=== PATIENT | male | born 1935 | race Caucasian/White ===

== ENCOUNTER 2020-04-21 06:48 | Outpatient (REF) | payer MEDICARE, SELFPAY ==
[2020-04-21 11:12] LABS: MANUAL DIFF FLAG NO
[2020-04-21 11:30] LABS: Basophils Percent Auto 0.4 % (0-2); Eosinophils Absolute Auto 0.2 X10*3/uL (0.0-0.4); Eosinophils Percent Auto 3.1 % (0-4); Hematocrit 42.6 % (42-52); Hemoglobin 13.8 g/dl (14.0-18.0); Imm Gran Abs Auto 0.04 X10*3/uL (0.00-0.03); Imm Gran Pct Auto 0.6 % (0.0-0.4); Lymphocytes Absolute Auto 1.6 X10*3/uL (1.2-4.9); Lymphocytes Percent Auto 23.5 % (20-40); Mean Corpuscular HGB Conc 32.4 g/dl (31.0-36.0); Mean Corpuscular Hemoglobin 29.4 pg (27.0-33.0); Mean Corpuscular Volume 90.8 fL (80-98); Mean Platelet Volume 9.6 fL (9.4-12.4); Monocytes Absolute Auto 0.5 X10*3/uL (0.1-1.2); Monocytes Percent Auto 7.2 % (2-11); Neutrophils Absolute Auto 4.4 X10*3/uL (2.0-8.3); Neutrophils Percent Auto 65.2 % (45-73); Platelet Count 236 X10*3/uL (160-400); Red Blood Count 4.69 X10*6/uL (4.60-5.80); Red Cell Distribution Width 12.7 % (11.0-16.0); White Blood Count 6.7 X10*3/uL (4.8-10.8)
[2020-04-21 11:57] LABS: Alanine Aminotransferase 12 U/L (0-40); Albumin Level 4.3 g/dL (3.5-5.0); Alkaline Phosphatase 72 U/L (39-117); Anion Gap 17 (12-20); Aspartate Amino Transferase 14 U/L (5-37); Bilirubin Total 0.8 mg/dL (0.0-1.0); Blood Urea Nitrogen 19 mg/dL (9-16); Calcium 8.6 mg/dL (8.4-10.2); Carbon Dioxide 23 mmol/L (22-29); Chloride 103 mmol/L (96-108); Cholesterol 160 mg/dL; Estimated Glomerular Filt Rate > 60; Glucose Random 101 mg/dL (60-115); HDL Cholesterol 40 mg/dL; LDL Cholesterol Calculated 83 mg/dl; Sodium 139 mmol/L (135-145); Total Protein 6.9 g/dL (6.5-8.0); Triglycerides 186 mg/dL
[2020-04-21 12:06] LABS: Free T4 (Free Thyroxine) 1.04 ng/dL (0.71-1.85); Thyroid Stimulating Hormone 6.06 uIU/mL (0.32-4.0)
[2020-04-21 12:07] LABS: Estimated Average Glucose 151 mg/dL; Hemoglobin A1c % 6.9 %
[2020-04-21 12:22] LABS: Vitamin B12 225 pg/mL (200-900)
[2020-04-21 12:38] LABS: Creatinine Urine 109.22 mg/dL; Microalbum/Creatinine Ratio Ur 48.5 ug/mg cr
== END 2020-04-21 06:49 | disposition home or self-care (01) ==
LOC: HO.HMGCLDS 06:48
PROVIDERS: PCP Internal Medicine; Visit Provider Internal Medicine
DX: K21.9 Gastro-esophageal reflux disease without esophagitis (principal); I10 Essential (primary) hypertension; E11.65 Type 2 diabetes mellitus with hyperglycemia; E78.00 Pure hypercholesterolemia, unspecified
CPT/HCPCS: 36415; 80053; 80061; 82043; 82607; 82746; 83036; 84439; 84443; 85025

== ENCOUNTER 2020-07-26 10:25 | Outpatient (REF) | payer MEDICARE, SELFPAY ==
[2020-07-26 14:10] LABS: MANUAL DIFF FLAG NO
[2020-07-26 14:18] LABS: Basophils Percent Auto 0.5 % (0-2); Eosinophils Absolute Auto 0.2 X10*3/uL (0.0-0.4); Eosinophils Percent Auto 2.6 % (0-4); Hematocrit 42.1 % (42-52); Hemoglobin 13.6 g/dl (14.0-18.0); Imm Gran Abs Auto 0.03 X10*3/uL (0.00-0.03); Imm Gran Pct Auto 0.5 % (0.0-0.4); Immature Retic Fraction 5.7 % (2.3-13.4); Lymphocytes Absolute Auto 1.5 X10*3/uL (1.2-4.9); Lymphocytes Percent Auto 25.4 % (20-40); Mean Corpuscular HGB Conc 32.3 g/dl (31.0-36.0); Mean Corpuscular Volume 92.9 fL (80-98); Mean Platelet Volume 9.6 fL (9.4-12.4); Monocytes Absolute Auto 0.4 X10*3/uL (0.1-1.2); Monocytes Percent Auto 7.2 % (2-11); Neutrophils Absolute Auto 3.7 X10*3/uL (2.0-8.3); Neutrophils Percent Auto 63.8 % (45-73); Platelet Count 239 X10*3/uL (160-400); Red Blood Count 4.53 X10*6/uL (4.60-5.80); Red Cell Distribution Width 13.1 % (11.0-16.0); Retic HGB Equivalent 35.1 pg (30.0-35.0); Reticulocyte Percent 1.4 % (0.5-1.8); Reticulocytes Absolute 0.065 X10*6/uL (0.026-0.095); White Blood Count 5.8 X10*3/uL (4.8-10.8)
[2020-07-26 14:43] LABS: Creatinine Urine 164.68 mg/dL
[2020-07-26 14:50] LABS: Iron 62 mcg/dL (45-160); Percent Iron Saturation 20 % (15-50); Total Iron Binding Capacity 307 mcg/dL (228-428); Unsaturated Iron Binding 245 ug/dL
[2020-07-26 15:15] LABS: Ferritin 52 ng/mL (20-250); Free T4 (Free Thyroxine) 0.93 ng/dL (0.71-1.85); Thyroid Stimulating Hormone 4.61 uIU/mL (0.32-4.0)
[2020-07-26 15:19] LABS: Folate 15.5 ng/mL (> or = 4.0); Vitamin B12 370 pg/mL (200-900)
== END 2020-07-26 10:26 | disposition home or self-care (01) ==
LOC: HO.HMGCLDS 10:25
PROVIDERS: PCP Internal Medicine; Visit Provider Internal Medicine
DX: D64.9 Anemia, unspecified (principal); E53.8 Deficiency of other specified B group vitamins; E11.65 Type 2 diabetes mellitus with hyperglycemia; R94.6 Abnormal results of thyroid function studies
CPT/HCPCS: 36415; 82607; 82728; 82746; 83540; 84439; 84443; 85025; 85045

== ENCOUNTER 2020-11-18 06:34 | Outpatient (REF) | payer MEDICARE, SELFPAY ==
[2020-11-18 11:19] LABS: MANUAL DIFF FLAG NO
[2020-11-18 11:24] LABS: Basophils Percent Auto 0.7 % (0-2); Eosinophils Absolute Auto 0.3 X10*3/uL (0.0-0.4); Eosinophils Percent Auto 5.1 % (0-4); Hematocrit 38.7 % (42-52); Imm Gran Abs Auto 0.03 X10*3/uL (0.00-0.03); Imm Gran Pct Auto 0.5 % (0.0-0.4); Lymphocytes Absolute Auto 1.2 X10*3/uL (1.2-4.9); Lymphocytes Percent Auto 20.7 % (20-40); Mean Corpuscular HGB Conc 33.6 g/dl (31.0-36.0); Mean Corpuscular Hemoglobin 30.5 pg (27.0-33.0); Mean Corpuscular Volume 90.8 fL (80-98); Mean Platelet Volume 9.6 fL (9.4-12.4); Monocytes Absolute Auto 0.5 X10*3/uL (0.1-1.2); Monocytes Percent Auto 8.4 % (2-11); Neutrophils Absolute Auto 3.8 X10*3/uL (2.0-8.3); Neutrophils Percent Auto 64.6 % (45-73); Platelet Count 243 X10*3/uL (160-400); Red Blood Count 4.26 X10*6/uL (4.60-5.80); Red Cell Distribution Width 12.8 % (11.0-16.0); White Blood Count 5.8 X10*3/uL (4.8-10.8)
[2020-11-18 11:24] LABS: Glucose Urine UA NEG (NEG); Leukocyte Esterase Urine NEG (NEG); Nitrite Urine NEG (NEG); Specific Gravity - Urine >= 1.030 (1.005-1.025); Urine Blood NEG (NEG); Urine Ketones NEG (NEG); Urine Protein 1+ MG/DL (NEG-TRACE)
[2020-11-18 11:27] LABS: Appearance Urine CLOUDY; Color Urine YELLOW
[2020-11-18 12:04] LABS: Free T4 (Free Thyroxine) 1.14 ng/dL (0.71-1.85); Thyroid Stimulating Hormone 4.31 uIU/mL (0.32-4.0)
[2020-11-18 12:06] LABS: Alanine Aminotransferase 13 U/L (0-40); Albumin Level 4.1 g/dL (3.5-5.0); Alkaline Phosphatase 75 U/L (39-117); Anion Gap 13 (12-20); Aspartate Amino Transferase 14 U/L (5-37); Bilirubin Total 0.7 mg/dL (0.0-1.0); Blood Urea Nitrogen 18 mg/dL (9-16); Calcium 9.1 mg/dL (8.4-10.2); Carbon Dioxide 25 mmol/L (22-29); Chloride 105 mmol/L (96-108); Cholesterol 156 mg/dL; Estimated Glomerular Filt Rate > 60; Glucose Random 123 mg/dL (60-115); HDL Cholesterol 40 mg/dL; LDL Cholesterol Calculated 93 mg/dl; Potassium 4.3 mmol/L (3.3-5.1); Sodium 139 mmol/L (135-145); Total Protein 6.6 g/dL (6.5-8.0); Triglycerides 118 mg/dL
[2020-11-18 12:14] LABS: Erythrocyte Sedimentation Rate 11 MM/HR (0-15)
[2020-11-18 12:36] LABS: Amorphous Sediment Urine 4+ /LPF; RBC Urine 0-2 /HPF (0); WBC Urine 0 /HPF (0-4)
[2020-11-18 13:26] LABS: Folate 15.4 ng/mL (> or = 4.0); Vitamin B12 868 pg/mL (200-900)
[2020-11-18 13:27] LABS: Ferritin 67 ng/mL (20-250)
[2020-11-19 08:22] LABS: Syphilis Screen Nonreactive (Nonreactive)
[2020-11-22 13:37] LABS: Prot Elec - Alpha1 0.3 g/dL (0.2-0.3); Prot Elec - Alpha2 0.8 g/dL (0.5-0.9); Prot Elec - Beta 1 0.4 g/dL (0.4-0.6); Prot Elec - Beta 2 0.3 g/dL (0.2-0.5); Prot Elec - Gamma 0.7 g/dL (0.8-1.7); Prot Elec - Total Protein 6.5 g/dL (6.1-8.1)
== END 2020-11-18 06:35 | disposition home or self-care (01) ==
LOC: HO.HMGCLDS 06:34
PROVIDERS: PCP Internal Medicine; Visit Provider Internal Medicine
DX: G31.84 Mild cognitive impairment of uncertain or unknown etiology (principal); E78.00 Pure hypercholesterolemia, unspecified; R79.89 Other specified abnormal findings of blood chemistry
CPT/HCPCS: 36415; 80053; 80061; 81001; 82607; 82728; 82746; 84165; 84439; 84443; 85025; 85652; 86780

== ENCOUNTER 2020-12-03 07:34 | Outpatient (REF) | payer MEDICARE, SELFPAY ==
--- NOTE | ~2020-12-03 | CT_ITS ---
EXAMINATION: CT HEAD WITHOUT CONTRAST CLINICAL INFORMATION: Cognitive impairment COMPARISON: None TECHNIQUE: Contiguous axial imaging was performed from the skull base to vertex without intravenous administration of contrast. This CT examination was performed using dose optimization techniques as appropriate, variously including the following: *Automated exposure control *Adjustment of mA and/or kV according to patient size (this includes techniques or standardized protocols for targeted exams where dose is matched to indication/reason for exam; i.e. extremities or head) *Use of iterative reconstruction technique DLP: 805 mGy-cm FINDINGS: There is no evidence of acute intracranial hemorrhage or territorial infarction. No abnormal mass effect or midline shift is seen. Mcgarry to white matter differentiation is well preserved. No extra-axial fluid collections are identified. The ventricles are normal in size. Minor chronic white matter changes. The osseous structures and soft tissues are normal. The mastoid air cells and visualized portions of the paranasal sinuses are well aerated. CT/CT head/brain wo con IMPRESSION: No acute intracranial pathology.
== END 2020-12-03 07:35 | disposition home or self-care (01) ==
LOC: HO.CT 07:34
PROVIDERS: Visit Provider Internal Medicine
DX: G31.84 Mild cognitive impairment of uncertain or unknown etiology (principal)
CPT/HCPCS: 70450

== ENCOUNTER 2021-02-17 10:19 | Outpatient (REF) | payer MEDICARE, SELFPAY ==
[2021-02-17 11:45] LABS: Anion Gap 12 (12-20); Blood Urea Nitrogen 16 mg/dL (9-16); Calcium 9.1 mg/dL (8.4-10.2); Carbon Dioxide 26 mmol/L (22-29); Chloride 104 mmol/L (96-108); Estimated Glomerular Filt Rate > 60; Glucose Random 177 mg/dL (60-115); Potassium 4.6 mmol/L (3.3-5.1); Sodium 137 mmol/L (135-145)
[2021-02-17 12:10] LABS: Free T4 (Free Thyroxine) 1.12 ng/dL (0.71-1.85); Thyroid Stimulating Hormone 3.46 uIU/mL (0.32-4.0)
[2021-02-17 12:43] LABS: Folate 15.5 ng/mL (> or = 4.0); Vitamin B12 1066 pg/mL (200-900)
[2021-02-17 13:31] LABS: T4 Thyroxine 8.4 ug/dL (4.5-12.0)
== END 2021-02-17 10:20 | disposition home or self-care (01) ==
LOC: HO.HMGCLDS 10:19
PROVIDERS: PCP Internal Medicine; Visit Provider Psychiatry & Neurology Neurology
DX: G31.84 Mild cognitive impairment of uncertain or unknown etiology (principal)
CPT/HCPCS: 36415; 80048; 82607; 82746; 84436; 84439; 84443

== ENCOUNTER 2021-05-18 11:18 | Outpatient (REF) | payer MEDICARE, SELFPAY ==
[2021-05-18 14:07] LABS: MANUAL DIFF FLAG NO
[2021-05-18 14:14] LABS: Basophils Percent Auto 0.4 % (0-2); Eosinophils Absolute Auto 0.1 X10*3/uL (0.0-0.4); Eosinophils Percent Auto 1.7 % (0-4); Hematocrit 41.4 % (42.0-52.0); Hemoglobin 13.5 g/dl (14.0-18.0); Imm Gran Abs Auto 0.05 X10*3/uL (0.00-0.03); Imm Gran Pct Auto 0.7 % (0.0-0.4); Immature Retic Fraction 9.2 % (2.3-13.4); Lymphocytes Absolute Auto 1.7 X10*3/uL (1.2-4.9); Lymphocytes Percent Auto 24.1 % (20-40); Mean Corpuscular HGB Conc 32.6 g/dl (31.0-36.0); Mean Corpuscular Hemoglobin 30.3 pg (27.0-33.0); Mean Corpuscular Volume 92.8 fL (80.0-98.0); Mean Platelet Volume 9.7 fL (9.4-12.4); Monocytes Absolute Auto 0.4 X10*3/uL (0.1-1.2); Neutrophils Absolute Auto 4.9 x10*3/uL (2.0-8.3); Neutrophils Percent Auto 68.1 % (45-73); Platelet Count 258 X10*3/uL (160-400); Red Blood Count 4.46 X10*6/uL (4.60-5.80); Red Cell Distribution Width 13.1 % (11.0-16.0); Retic HGB Equivalent 32.9 pg (30.0-35.0); Reticulocyte Percent 1.5 % (0.5-1.8); Reticulocytes Absolute 0.068 X10*6/uL (0.026-0.095); White Blood Count 7.2 X10*3/uL (4.8-10.8)
[2021-05-18 14:30] LABS: Estimated Average Glucose 157 mg/dL; Hemoglobin A1c % 7.1 %
[2021-05-18 14:36] LABS: Alanine Aminotransferase 9 U/L (0-40); Albumin Level 4.4 g/dL (3.5-5.0); Alkaline Phosphatase 85 U/L (39-117); Anion Gap 13 (12-20); Aspartate Amino Transferase 14 U/L (5-37); Bilirubin Total 0.9 mg/dL (0.0-1.0); Blood Urea Nitrogen 17 mg/dL (9-16); Calcium 9.5 mg/dL (8.4-10.2); Carbon Dioxide 27 mmol/L (22-29); Chloride 104 mmol/L (96-108); Estimated Glomerular Filt Rate 58; Glucose Random 160 mg/dL (60-115); Iron 96 mcg/dL (45-160); Percent Iron Saturation 34 % (15-50); Potassium 4.2 mmol/L (3.3-5.1); Sodium 140 mmol/L (135-145); Total Iron Binding Capacity 282 mcg/dL (228-428); Unsaturated Iron Binding 186 ug/dL
[2021-05-18 14:57] LABS: Folate 15.7 ng/mL (> or = 4.0); Vitamin B12 1053 pg/mL (200-900)
[2021-05-18 15:02] LABS: Ferritin 81 ng/mL (20-250); Free T4 (Free Thyroxine) 1.02 ng/dL (0.71-1.85); Thyroid Stimulating Hormone 3.28 uIU/mL (0.32-4.0)
== END 2021-05-18 11:19 | disposition home or self-care (01) ==
LOC: HO.HMGCLDS 11:18
PROVIDERS: PCP Internal Medicine; Visit Provider Internal Medicine
DX: D64.9 Anemia, unspecified (principal); E11.65 Type 2 diabetes mellitus with hyperglycemia; R94.6 Abnormal results of thyroid function studies
CPT/HCPCS: 36415; 80053; 82607; 82728; 82746; 83036; 83540; 84439; 84443; 85025; 85045

== ENCOUNTER 2022-02-08 06:12 | Outpatient (REF) | payer MEDICARE, SELFPAY ==
[2022-02-08 06:20] LABS: MANUAL DIFF FLAG NO
[2022-02-08 07:36] LABS: Basophils Absolute Auto 0.1 X10*3/uL (0.0-0.2); Basophils Percent Auto 0.9 % (0-2); Eosinophils Absolute Auto 0.2 X10*3/uL (0.0-0.4); Eosinophils Percent Auto 2.8 % (0-4); Hematocrit 41.5 % (42.0-52.0); Hemoglobin 13.5 g/dl (14.0-18.0); Imm Gran Abs Auto 0.05 X10*3/uL (0.00-0.03); Imm Gran Pct Auto 0.7 % (0.0-0.4); Lymphocytes Absolute Auto 2.3 X10*3/uL (1.2-4.9); Lymphocytes Percent Auto 32.8 % (20-40); Mean Corpuscular HGB Conc 32.5 g/dl (31.0-36.0); Mean Corpuscular Hemoglobin 29.4 pg (27.0-33.0); Mean Corpuscular Volume 90.4 fL (80.0-98.0); Mean Platelet Volume 9.3 fL (9.4-12.4); Monocytes Absolute Auto 0.4 X10*3/uL (0.1-1.2); Monocytes Percent Auto 6.4 % (2-11); Neutrophils Absolute Auto 3.9 x10*3/uL (2.0-8.3); Neutrophils Percent Auto 56.4 % (45-73); Platelet Count 275 X10*3/uL (160-400); Red Blood Count 4.59 X10*6/uL (4.60-5.80); White Blood Count 6.9 X10*3/uL (4.8-10.8)
[2022-02-08 07:49] LABS: Estimated Average Glucose 123 mg/dL; Hemoglobin A1c % 5.9 %
[2022-02-08 08:31] LABS: Alanine Aminotransferase 9 U/L (0-40); Albumin Level 4.2 g/dL (3.5-5.0); Alkaline Phosphatase 73 U/L (39-117); Anion Gap 18 (12-20); Aspartate Amino Transferase 12 U/L (5-37); Bilirubin Total 0.7 mg/dL (0.0-1.0); Blood Urea Nitrogen 19 mg/dL (9-16); Carbon Dioxide 24 mmol/L (22-29); Chloride 102 mmol/L (96-108); Cholesterol 177 mg/dL; Estimated Glomerular Filt Rate 53; Glucose Random 107 mg/dL (60-115); HDL Cholesterol 48 mg/dL; LDL Cholesterol Calculated 106 mg/dl; Potassium 3.5 mmol/L (3.3-5.1); Sodium 140 mmol/L (135-145); Total Protein 6.7 g/dL (6.5-8.0); Triglycerides 117 mg/dL
[2022-02-08 08:33] LABS: Free T4 (Free Thyroxine) 1.22 ng/dL (0.71-1.85); Thyroid Stimulating Hormone 3.58 uIU/mL (0.32-4.0)
[2022-02-08 08:47] LABS: Folate 11.7 ng/mL (> or = 4.0); Vitamin B12 1486 pg/mL (200-900)
[2022-02-08 09:25] LABS: Creatinine Urine 156.72 mg/dL; Microalbum/Creatinine Ratio Ur 31.2 ug/mg cr
== END 2022-02-08 06:13 | disposition home or self-care (01) ==
LOC: HO.LAB 06:12
PROVIDERS: PCP Internal Medicine; Visit Provider Internal Medicine
DX: E78.00 Pure hypercholesterolemia, unspecified (principal); E11.65 Type 2 diabetes mellitus with hyperglycemia; I10 Essential (primary) hypertension; K21.9 Gastro-esophageal reflux disease without esophagitis
CPT/HCPCS: 36415; 80053; 80061; 82043; 82607; 82746; 83036; 84439; 84443; 85025

== ENCOUNTER 2022-05-26 06:03 | Outpatient (REF) | payer MEDICARE, SELFPAY ==
[2022-05-26 06:08] LABS: MANUAL DIFF FLAG NO
[2022-05-26 07:56] LABS: Basophils Absolute Auto 0.1 X10*3/uL (0.0-0.2); Basophils Percent Auto 1.2 % (0-2); Eosinophils Absolute Auto 0.2 X10*3/uL (0.0-0.4); Eosinophils Percent Auto 2.5 % (0-4); Hematocrit 40.3 % (42.0-52.0); Hemoglobin 13.2 g/dl (14.0-18.0); Imm Gran Abs Auto 0.04 X10*3/uL (0.00-0.03); Imm Gran Pct Auto 0.6 % (0.0-0.4); Immature Retic Fraction 6.8 % (2.3-13.4); Lymphocytes Absolute Auto 1.6 X10*3/uL (1.2-4.9); Lymphocytes Percent Auto 21.7 % (20-40); Mean Corpuscular HGB Conc 32.8 g/dl (31.0-36.0); Mean Corpuscular Hemoglobin 30.2 pg (27.0-33.0); Mean Corpuscular Volume 92.2 fL (80.0-98.0); Monocytes Absolute Auto 0.4 X10*3/uL (0.1-1.2); Monocytes Percent Auto 5.9 % (2-11); Neutrophils Absolute Auto 4.9 x10*3/uL (2.0-8.3); Neutrophils Percent Auto 68.1 % (45-73); Platelet Count 261 X10*3/uL (160-400); Red Blood Count 4.37 X10*6/uL (4.60-5.80); Red Cell Distribution Width 13.5 % (11.0-16.0); Retic HGB Equivalent 35.3 pg (30.0-35.0); Reticulocyte Percent 1.2 % (0.5-1.8); Reticulocytes Absolute 0.054 X10*6/uL (0.026-0.095); White Blood Count 7.2 X10*3/uL (4.8-10.8)
[2022-05-26 08:01] LABS: Estimated Average Glucose 134 mg/dL; Hemoglobin A1c % 6.3 %
[2022-05-26 08:15] LABS: Alanine Aminotransferase 18 U/L (0-40); Albumin Level 4.2 g/dL (3.5-5.0); Alkaline Phosphatase 78 U/L (39-117); Anion Gap 16 (12-20); Aspartate Amino Transferase 14 U/L (5-37); Bilirubin Total 0.8 mg/dL (0.0-1.0); Blood Urea Nitrogen 26 mg/dL (9-16); Calcium 9.1 mg/dL (8.4-10.2); Carbon Dioxide 23 mmol/L (22-29); Chloride 106 mmol/L (96-108); Cholesterol 203 mg/dL; Estimated Glomerular Filt Rate 58; Glucose Random 170 mg/dL (60-115); HDL Cholesterol 49 mg/dL; Iron 79 mcg/dL (45-160); LDL Cholesterol Calculated 119 mg/dl; Percent Iron Saturation 30 % (15-50); Potassium 4.6 mmol/L (3.3-5.1); Sodium 140 mmol/L (135-145); Total Iron Binding Capacity 260 mcg/dL (228-428); Total Protein 6.7 g/dL (6.5-8.0); Triglycerides 177 mg/dL; Unsaturated Iron Binding 181 ug/dL
[2022-05-26 08:29] LABS: Ferritin 60 ng/mL (20-250)
== END 2022-05-26 06:04 | disposition home or self-care (01) ==
LOC: HO.LAB 06:03
PROVIDERS: PCP Internal Medicine; Visit Provider Internal Medicine
DX: E11.65 Type 2 diabetes mellitus with hyperglycemia (principal); E78.00 Pure hypercholesterolemia, unspecified
CPT/HCPCS: 36415; 80053; 80061; 82728; 83036; 83540; 85025; 85045

== ENCOUNTER 2022-09-01 07:03 | Outpatient (REF) | payer MEDICARE, SELFPAY ==
[2022-09-01 08:26] LABS: Estimated Average Glucose 143 mg/dL; Hemoglobin A1c % 6.6 %; Total Hemoglobin (HGBA1C) 3588.4407 umol/L
[2022-09-01 08:49] LABS: Alanine Aminotransferase 18 U/L (0-40); Albumin Level 3.9 g/dL (3.5-5.0); Alkaline Phosphatase 79 U/L (39-117); Anion Gap 15 (12-20); Aspartate Amino Transferase 14 U/L (5-37); Bilirubin Total 0.6 mg/dL (0.0-1.0); Blood Urea Nitrogen 27 mg/dL (9-16); Calcium 9.1 mg/dL (8.4-10.2); Carbon Dioxide 24 mmol/L (22-29); Chloride 108 mmol/L (96-108); Cholesterol 200 mg/dL; Estimated Glomerular Filt Rate 43; Glucose Random 142 mg/dL (60-115); HDL Cholesterol 50 mg/dL; LDL Cholesterol Calculated 133 mg/dl; Potassium 4.7 mmol/L (3.3-5.1); Sodium 142 mmol/L (135-145); Total Protein 6.3 g/dL (6.5-8.0); Triglycerides 89 mg/dL
[2022-09-01 09:04] LABS: Free T4 (Free Thyroxine) 1.06 ng/dL (0.71-1.85); Thyroid Stimulating Hormone 9.36 uIU/mL (0.32-4.0)
== END 2022-09-01 07:04 | disposition home or self-care (01) ==
LOC: HO.LAB 07:03
PROVIDERS: PCP Internal Medicine; Visit Provider Internal Medicine
DX: E11.65 Type 2 diabetes mellitus with hyperglycemia (principal); E78.00 Pure hypercholesterolemia, unspecified
CPT/HCPCS: 36415; 80053; 80061; 83036; 84439; 84443

== ENCOUNTER 2022-09-15 10:54 | Outpatient (REF) | payer MEDICARE, SELFPAY ==
[2022-09-15 14:44] LABS: Alanine Aminotransferase 15 U/L (0-40); Albumin Level 3.8 g/dL (3.5-5.0); Alkaline Phosphatase 73 U/L (39-117); Anion Gap 11 (12-20); Aspartate Amino Transferase 14 U/L (5-37); Bilirubin Total 0.8 mg/dL (0.0-1.0); Blood Urea Nitrogen 29 mg/dL (9-16); Carbon Dioxide 23 mmol/L (22-29); Chloride 105 mmol/L (96-108); Estimated Glomerular Filt Rate 47; Glucose Random 178 mg/dL (60-115); Potassium 4.3 mmol/L (3.3-5.1); Sodium 135 mmol/L (135-145); Total Protein 6.2 g/dL (6.5-8.0)
[2022-09-15 14:51] LABS: Free T4 (Free Thyroxine) 1.11 ng/dL (0.71-1.85); Thyroid Stimulating Hormone 4.12 uIU/mL (0.32-4.0)
[2022-09-15 15:21] LABS: Creatinine Urine 72.07 mg/dL
== END 2022-09-15 10:55 | disposition home or self-care (01) ==
LOC: HO.HMGCLDS 10:54
PROVIDERS: PCP Internal Medicine; Visit Provider Internal Medicine
DX: E11.65 Type 2 diabetes mellitus with hyperglycemia (principal); N28.9 Disorder of kidney and ureter, unspecified
CPT/HCPCS: 36415; 80053; 84439; 84443

== ENCOUNTER 2022-12-29 08:18 | Outpatient (AMB) | payer MEDICARE, SELFPAY ==
[2022-12-29 08:21] VITALS: BP 130/62; PULSE 66; O2SAT 96; BMI 23.8
--- NOTE | 2022-12-29 08:21 | A.OFFPC_ITS ---
Vital Signs 12/29/22 08:21 Height 5 ft 5 in Weight 143 lb BMI 23.8 BP 130/62 Blood Pressure Location Lt brachial Position Sitting Pulse 66 Pulse Source Pulse Oximeter Pulse Oximetry (%) 96 Oxygen Delivery Method Room Air Intake Visit Reasons: hypercholesterol, TSH , renal insuff Allergies No Known Allergies [No Known Allergies*] Allergy (Verified 12/29/22 08:21) Tobacco use date assessed: 06/06/22 Fall risk assessment: No Falls in past year Last assessed Fall Risk: 12/29/22 Dental Screening Dental Screen Date: 12/29/22 Did you have a dental visit in the last 12 months?: Yes Did you have a dental problem in the last 6 months where you did not have access to dental care?: No Was dental information given to patient?: Patient has dentist HPI hypercholesterol, TSH , renal insuff HPI Details 87-year-old male with controlled diabete s mellitus GERD h ypercholesterolemia hypertension renal insufficiency coming in for follow-up. Last seen in August 2022. Last hemoglobin A1c was August 2022 6.6. Patient is here for follow-up [facility] Medical History (Updated 12/29/22 @ 08:52 by Kanu Sanchez MD) TSH elevation Type 2 diabetes mellitus with hyperglycemia GERD (gastroesophageal reflux disease) Hypercholesterolemia Hypertension Surgical History History of inguinal hernia repair History of right hip replacement Family History (Updated 12/29/22 @ 08:22 by Ofelia Ayala JIG BOX OPERATOR) Father No problems noted. Mother No problems noted. Social History Housing: House Alcohol intake: current Alcohol intake frequency: holidays/special occasions only Alcohol type: beer Patient Tobacco Use Status: Former Tobacco user Tobacco use type: Cigarette Years Smoked: stopped 1999 e-Cigarette/Vaping Use: Never Used Second Hand Smoke Exposure: No service: Yes Current occupational status: retired Cognitive needs: No Hearing needs: No Vision needs: Yes Questionnaire PHQ-9 Over the last 2 weeks, how often have you been bothered by any of the following problems? 1. Little interest or pleasure in doing things: several days 2. Feeling down, depressed, or hopeless: not at all 3. Trouble falling or staying asleep, or sleeping too much: not at all 4. Feeling tired or having little energy: nearly every day 5. Poor appetite or overeating: several days 6. Feeling bad about yourself - or that you are a failure or have let yourself or your family down: several days 7. Trouble concentrating on things, such as reading the newspaper or watching television: not at all 8. Moving or speaking so slowly that other people could have noticed. Or the opposite - being so fidgety or restless that you have been moving around a lot more than usual: not at all 9. Thoughts that you would be better off or of hurting yourself in some way: not at all Total score: 6 Depression Screening Interpretation: Negative 84695 - PHQ-9 Billing: Yes Source: Developed by Drs. Jermain Mayes, Eri Luis, Evangelist Jaquez and colleagues, with an educational bia from [employer]. Thrive Questionnaire Date Thrive assessed: 06/06/22 AUDIT C Alcohol Use Questionnaire (AUDIT-C) 1. How often do you have a drink containing alcohol?: Monthly or less 2. How many drinks containing alcohol do you have on a typical day when you are drinking?: 1 or 2 3. How often do you have six or more drinks on one occasion?: Never Total Score: 1 NAVYA-7 AMB Questionnaire NAVYA-7 Date NAVYA - 7 assessed: 08/18/22 Source: Developed by Drs. Jermain Mayes, Eri Luis, Evangelist Jaquez and colleagues, with an educational bia from [employer]. Physical exam (Primary Care) Vital Signs: Last Vital Signs Pulse 66 12/29/22 08:21 BP 130/62 12/29/22 08:21 Pulse Ox 96 12/29/22 08:21 Oxygen Delivery Method Room Air 12/29/22 08:21 BMI result Body Mass Index 23.8 Tobacco/Smoking Status: Tobacco use Status Tobacco use date assessed 06/06/22 12/29/22 08:22 Patient Tobacco Use Status Former Tobacco user 12/29/22 08:22 Tobacco use type Cigarette 12/29/22 08:22 e-Cigarette/Vaping Use Never Used 12/29/22 08:22 PHQ-9: PHQ-9 Score PHQ-9: Total score 6 12/29/22 08:42 Depression Screening Interpretation: Negative Thrive Assessment: Date of Thrive Assessment Date Thrive assessed 06/06/22 12/29/22 08:22 Const General: alert; No acute distress Eyes Conjunctivae: conjunctivae normal Resp Auscultation: clear to auscultation bilaterally Cardio Rate: regular rate Rhythm: regular rhythm GI Inspection: Yes normal to inspection Extrem General: Yes normal to inspection and No edema Results AMB Hemoglobin A1c AMB Hemoglobin A1c 6.9 % Last Edit by Ofelia Ayala CMA on 12/29/22 08 :46 Assessment and Plan Assessment & Plan (1) Type 2 diabetes mellitus with hyperglycemia: Comment: Dr. Francis/ld Code(s): E11.65 - Type 2 diabetes mellitus with hyperglycemia Qualifiers: Diabetes mellitus terminal operations manager insulin use: without penitentiary use Qualified Code(s): E11.65 - Type 2 diabetes mellitus with hyperglycemia Plan: Decrease the amount of carbohydrate intake, pasta, bread, rice and potatoes are all sugar and that is aside from all the sweet stuff, remember that fruits are good but they are Sweet also. Hemoglobin 8 the goal of less than 7.0 patient is on metformin 500 mg once a day discussed that hemoglobin A1c is a little bit higher but it still at goal. Advised to control diet (2) Hypertension: Code(s): I10 - Essential (primary) hypertension Qualifiers: Hypertension type: essential hypertension Qualified Code(s): I10 - Essential (primary) hypertension Plan: Continue with blood pressure medication. Decrease salt intake and exercise patient takes lisinopril 10 mg once a day hydrochlorothiazide 12.5 mg once a day (3) Hypercholesterolemia: Code(s): E78.00 - Pure hypercholesterolemia, unspecified Plan: Avoid fried foods, chicken skin, eggs, butter margarine, pastries and meat. Be it pork or beef they have a lot of cholesterol LDL goal of less than 100 and triglyceride of less than 150 patient is on atorvastatin 20 mg once a day. Discussed that cholesterol blood work is rising and that with the atorvastatin would like to have this retested. (4) GERD (gastroesophageal reflux disease): Code(s): K21.9 - Gastro-esophageal reflux disease without esophagitis Qualifiers: Esophagitis presence: without esophagitis Qualified Code(s): K21.9 - Gastro-esophageal reflux disease without esophagitis Plan: Avoid the foods that causes that usually spicy foods, tomato products, juices, coffee, soda and foods that your sensitive to. After eating do not lie down, allow 3-4 hours before in lie down. And keep the head of bed above 30 degrees to avoid the acid from going up. (5) Anemia: Code(s): D64.9 - Anemia, unspecified Qualifiers: Anemia type: unspecified type Qualified Code(s): D64.9 - Anemia, unspecified (6) Renal insufficiency: Code(s): N28.9 - Disorder of kidney and ureter, unspecified Plan: Continue to follow-up. The last blood work was in September. Stable (7) TSH elevation: Code(s): R79.89 - Other specified abnormal findings of blood chemistry Plan: TSH is coming down and will do retesting. Orders: Orders Comprehensive Met. Panel Today E78.00 - Pure hypercholesterolemia, unspecified IRON PROFILE Today E78.00 - Pure hypercholesterolemia, unspecified AMB Hemoglobin A1c Today Z13.9 - Encounter for screening, unspecified Lipid Panel Today E78.00 - Pure hypercholesterolemia, unspecified Complete Blood Count Auto Diff Today E78.00 - Pure hypercholesterolemia, unspecified Ferritin Today E78.00 - Pure hypercholesterolemia, unspecified Reticulocyte Count Today E78.00 - Pure hypercholesterolemia, unspecified Vitamin B12 and Folate Today E78.00 - Pure hypercholesterolemia, unspecified Medications: New lancets (OneTouch Delica Plus Lancet) As directed check the BS QD 100 ea 3RF E11.65 - Type 2 diabetes mellitus with hyperglycemia Coding Level of Care Code Est Pt Level 4 (32095) Diagnoses Type 2 diabetes mellitus with hyperglycemia, without long-term current use of insulin E11.65 Diabetes mellitus penitentiary insulin use: without penitentiary use Essential hypertension I10 Hypertension type: essential hypertension Hypercholesterolemia E78.00 Gastroesophageal reflux disease without esophagitis K21.9 Esophagitis presence: without esophagitis Anemia, unspecified type D64.9 Anemia type: unspecified type Renal insufficiency N28.9 TSH elevation R79.89
== END 2022-12-29 09:03 | disposition home or self-care (01) ==
PROVIDERS: PCP Internal Medicine; Visit Provider Internal Medicine
DX: E11.65 Type 2 diabetes mellitus with hyperglycemia (principal); I10 Essential (primary) hypertension; E78.00 Pure hypercholesterolemia, unspecified; K21.9 Gastro-esophageal reflux disease without esophagitis; D64.9 Anemia, unspecified; N28.9 Disorder of kidney and ureter, unspecified; R79.89 Other specified abnormal findings of blood chemistry
CPT/HCPCS: 83036; 99214

== ENCOUNTER 2023-01-01 06:23 | Outpatient (REF) | payer MEDICARE, SELFPAY ==
[2023-01-01 06:36] LABS: MANUAL DIFF FLAG NO
[2023-01-01 07:37] LABS: Basophils Absolute Auto 0.1 X10*3/uL (0.0-0.2); Basophils Percent Auto 1.1 % (0-2); Eosinophils Absolute Auto 0.3 X10*3/uL (0.0-0.4); Hematocrit 42.7 % (42.0-52.0); Imm Gran Abs Auto 0.04 X10*3/uL (0.00-0.03); Imm Gran Pct Auto 0.6 % (0.0-0.4); Immature Retic Fraction 12.5 % (2.3-13.4); Lymphocytes Absolute Auto 2.1 X10*3/uL (1.2-4.9); Lymphocytes Percent Auto 34.3 % (20-40); Mean Corpuscular HGB Conc 32.8 g/dl (31.0-36.0); Mean Corpuscular Hemoglobin 30.4 pg (27.0-33.0); Mean Corpuscular Volume 92.6 fL (80.0-98.0); Mean Platelet Volume 9.6 fL (9.4-12.4); Monocytes Absolute Auto 0.4 X10*3/uL (0.1-1.2); Monocytes Percent Auto 6.9 % (2-11); Neutrophils Absolute Auto 3.2 x10*3/uL (2.0-8.3); Neutrophils Percent Auto 52.1 % (45-73); Platelet Count 244 X10*3/uL (160-400); Red Blood Count 4.61 X10*6/uL (4.60-5.80); Red Cell Distribution Width 13.2 % (11.0-16.0); Retic HGB Equivalent 34.7 pg (30.0-35.0); Reticulocyte Percent 1.6 % (0.5-1.8); Reticulocytes Absolute 0.072 X10*6/uL (0.026-0.095); White Blood Count 6.2 X10*3/uL (4.8-10.8)
[2023-01-01 08:47] LABS: Alanine Aminotransferase 17 U/L (0-40); Albumin Level 4.3 g/dL (3.5-5.0); Alkaline Phosphatase 86 U/L (39-117); Anion Gap 14 (12-20); Aspartate Amino Transferase 15 U/L (5-37); Bilirubin Total 0.9 mg/dL (0.0-1.0); Blood Urea Nitrogen 24 mg/dL (9-16); Calcium 9.8 mg/dL (8.4-10.2); Carbon Dioxide 24 mmol/L (22-29); Chloride 106 mmol/L (96-108); Cholesterol 200 mg/dL (<200); Estimated Glomerular Filt Rate 52; Glucose Random 112 mg/dL (60-115); HDL Cholesterol 56 mg/dL (>40); Iron 95 mcg/dL (45-160); LDL Cholesterol Calculated 123 mg/dL (<100); Percent Iron Saturation 37 % (15-50); Potassium 3.8 mmol/L (3.3-5.1); Sodium 140 mmol/L (135-145); Total Iron Binding Capacity 260 mcg/dL (228-428); Total Protein 7.2 g/dL (6.5-8.0); Triglycerides 105 mg/dL (<150); Unsaturated Iron Binding 165 ug/dL
[2023-01-01 09:04] LABS: Ferritin 57 ng/mL (20-250)
[2023-01-01 09:14] LABS: Folate 11.2 ng/mL (> or = 4.0); Vitamin B12 979 pg/mL (200-900)
== END 2023-01-01 06:24 | disposition home or self-care (01) ==
LOC: HO.LAB 06:23
PROVIDERS: PCP Internal Medicine; Visit Provider Internal Medicine
DX: E78.00 Pure hypercholesterolemia, unspecified (principal); D64.9 Anemia, unspecified
CPT/HCPCS: 36415; 80053; 80061; 82607; 82728; 82746; 83540; 85025; 85045

== ENCOUNTER 2023-02-02 05:25 | Outpatient (REF) | payer MEDICARE, SELFPAY ==
[2023-02-02 06:39] LABS: MANUAL DIFF FLAG NO
[2023-02-02 06:42] LABS: Basophils Absolute Auto 0.1 X10*3/uL (0.0-0.2); Eosinophils Absolute Auto 0.2 X10*3/uL (0.0-0.4); Eosinophils Percent Auto 3.6 % (0-4); Hematocrit 35.8 % (42.0-52.0); Hemoglobin 11.8 g/dl (14.0-18.0); Imm Gran Abs Auto 0.06 X10*3/uL (0.00-0.03); Lymphocytes Absolute Auto 1.6 X10*3/uL (1.2-4.9); Lymphocytes Percent Auto 25.9 % (20-40); Mean Corpuscular Hemoglobin 29.6 pg (27.0-33.0); Mean Corpuscular Volume 89.9 fL (80.0-98.0); Mean Platelet Volume 9.2 fL (9.4-12.4); Monocytes Absolute Auto 0.5 X10*3/uL (0.1-1.2); Monocytes Percent Auto 8.7 % (2-11); Neutrophils Absolute Auto 3.7 x10*3/uL (2.0-8.3); Neutrophils Percent Auto 59.8 % (45-73); Platelet Count 220 X10*3/uL (160-400); Red Blood Count 3.98 X10*6/uL (4.60-5.80); Red Cell Distribution Width 12.8 % (11.0-16.0); White Blood Count 6.1 X10*3/uL (4.8-10.8)
[2023-02-02 07:03] LABS: Alanine Aminotransferase 13 U/L (0-40); Albumin Level 3.7 g/dL (3.5-5.0); Alkaline Phosphatase 80 U/L (39-117); Anion Gap 15 (12-20); Aspartate Amino Transferase 17 U/L (5-37); Bilirubin Direct 0.3 mg/dL (0.0-0.5); Bilirubin Total 0.8 mg/dL (0.0-1.0); Blood Urea Nitrogen 27 mg/dL (9-16); Carbon Dioxide 22 mmol/L (22-29); Chloride 104 mmol/L (96-108); Estimated Glomerular Filt Rate 45; Glucose Random 155 mg/dL (60-115); Potassium 3.7 mmol/L (3.3-5.1); Sodium 137 mmol/L (135-145)
[2023-02-02 07:08] LABS: Estimated Average Glucose 131 mg/dL; Hemoglobin A1c % 6.2 % (<6.0)
[2023-02-02 07:19] LABS: Thyroid Stimulating Hormone 4.81 uIU/mL (0.32-4.0); Vitamin D 25-OH Total 11.7 ng/mL (>30)
[2023-02-02 07:31] LABS: Folate 9.1 ng/mL (> or = 4.0); Vitamin B12 888 pg/mL (200-900)
[2023-02-04 20:13] LABS: TS Negative Control Passed; TS Panel A 0; TS Panel B 0; TS Positive Control Passed; TSpotTB Negative (Negative)
== END 2023-02-02 05:26 | disposition home or self-care (01) ==
LOC: HO.HSH3N 05:25
PROVIDERS: Visit Provider Nurse Practitioner Acute Care
DX: Z11.1 Encounter for screening for respiratory tuberculosis (principal); I10 Essential (primary) hypertension; E11.9 Type 2 diabetes mellitus without complications; E78.00 Pure hypercholesterolemia, unspecified; E55.9 Vitamin D deficiency, unspecified
CPT/HCPCS: 36415; 80053; 82248; 82306; 82607; 82746; 83036; 84443; 85025; 86481

== ENCOUNTER 2023-02-08 18:32 | Emergency (ER) | payer MEDICARE, SELFPAY ==
--- NOTE | ~2023-02-08 | CT_ITS ---
CT HEAD WITHOUT IV CONTRAST CT CERVICAL SPINE WITHOUT IV CONTRAST INDICATION: Fall with head strike. COMPARISON: Head CT 12/03/2020. TECHNIQUE: Multidetector CT acquisitions of the head and cervical spine were obtained without IV contrast. Multiplanar reformats were acquired and utilized for image interpretation. This CT examination was performed using dose optimization techniques as appropriate, variously including the following: *Automated exposure control *Adjustment of mA and/or kV according to patient size (this includes techniques or standardized protocols for targeted exams where dose is matched to indication/reason for exam; i.e. 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 There is no intracranial hemorrhage, hydrocephalus, extra-axial surface collection, midline shift, or other herniation pattern. Mcgarry to white matter differentiation is diffusely maintained without evidence of an evolved acute territorial infarct. The basilar cisterns are preserved. No significant soft tissue abnormality. No acute osseous abnormality. The paranasal sinuses and the mastoid air cells are well aerated. CERVICAL SPINE: Straightening the cervical lordosis. There is anterior subluxation of C4 on C5 and C7 on T1. There is severe disc volume loss at C5-C6 and C6-C7. Multilevel endplate osteophytes. Indeterminate age fracture at the base of an anteriorly projecting osteophyte along the left inferior endplate of C5 versus a discontiguous osteophyte. If there is high clinical suspicion for acute cervical spine injury, MRI would would be helpful in excluding an avulsion fracture. Hypertrophic degenerative changes involving the atlantodental interval. There is no prevertebral soft tissue swelling. CT/CT cervical spine wo IV con IMPRESSION: - No acute intracranial abnormality. 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 - Indeterminate age fracture at the base of an anteriorly projecting osteophyte along the left inferior endplate of C5 versus a discontiguous osteophyte. If there is high clinical suspicion for acute cervical spine injury, MRI would would be helpful in excluding an avulsion fracture. Multilevel cervical spondylosis.
[2023-02-08 18:34] VITALS: BP 143/65; BP 162/45; PULSE 60; PULSE 78; RESP 16; TEMP 36.9; O2SAT 100; O2SAT 99; BMI 22.5
[2023-02-08 18:45] VITALS: BP 162/45; PULSE 73
[2023-02-08 18:46] VITALS: BP 141/56; PULSE 67
[2023-02-08 18:48] VITALS: BP 143/71; PULSE 73
--- NOTE | 2023-02-08 18:49 | PC.NURSE ---
pt reports he was reaching down to grab something on the floor when he fell forward out of the chair. he hit his head, never loss consciousness, got up by himself with no issue. Pt verbalizes no pain, no dizziness, offers no complaints at this time
--- NOTE | 2023-02-08 19:13 | ECG_ITS ---
Test Reason : FALL Blood Pressure : / mmHG Vent. Rate : 063 BPM Atrial Rate : 063 BPM P-R Int : 178 ms QRS Dur : 072 ms QT Int : 428 ms P-R-T Axes : 055 -19 040 degrees QTc Int : 437 ms Normal sinus rhythm with sinus arrhythmia Low voltage QRS Septal infarct (cited on or before 09-DEC-2019) Abnormal ECG When compared with ECG of 09-DEC-2019 06:47, No significant change was found Referred By: Tiffany Moreno Electronically Signed By:ROSELIA CHARLES MD
[2023-02-08 19:16] LABS: MANUAL DIFF FLAG NO
[2023-02-08 19:20] LABS: Basophils Absolute Auto 0.1 X10*3/uL (0.0-0.2); Basophils Percent Auto 0.8 % (0-2); Eosinophils Absolute Auto 0.1 X10*3/uL (0.0-0.4); Eosinophils Percent Auto 1.4 % (0-4); Hemoglobin 13.2 g/dl (14.0-18.0); Imm Gran Abs Auto 0.05 X10*3/uL (0.00-0.03); Imm Gran Pct Auto 0.6 % (0.0-0.4); Lymphocytes Absolute Auto 1.1 X10*3/uL (1.2-4.9); Lymphocytes Percent Auto 12.9 % (20-40); Mean Corpuscular Hemoglobin 30.1 pg (27.0-33.0); Mean Corpuscular Volume 91.1 fL (80.0-98.0); Mean Platelet Volume 9.1 fL (9.4-12.4); Monocytes Absolute Auto 0.5 X10*3/uL (0.1-1.2); Monocytes Percent Auto 5.7 % (2-11); Neutrophils Absolute Auto 6.9 x10*3/uL (2.0-8.3); Neutrophils Percent Auto 78.6 % (45-73); Platelet Count 263 X10*3/uL (160-400); Red Blood Count 4.39 X10*6/uL (4.60-5.80); Red Cell Distribution Width 12.9 % (11.0-16.0); White Blood Count 8.7 X10*3/uL (4.8-10.8)
--- NOTE | 2023-02-08 19:22 | ED.FALL ---
HPI - Fall General Chief Complaint: Fall Stated Complaint: UNWITNESSED FALL + HEAD STRIKE Time Seen by Provider: 02/08/23 19:13 Source: patient Mode of arrival: EMS Limitations: other (mild cognitive impairment) History of Present Illness HPI Narrative: 87 yo male with PMH of DM, GERD, HLD, HTN, cognitive impairment, renal insufficiency here with c/o unwitnessed fall - he states he is okay he tripped on his shoes. He denies injury but [facility] report a head strike. He will not wear a cervical collar. He has no symptoms but he is thirsty. He is eager to go home. complaint: fall Onset (ago): hour(s) (? 1 hour) Fall from: standing Fall witnessed: no Place fall occurred: home Loss of consciousness: none Prolonged down time: no Symptoms prior to fall: none Context: tripped/slipped Location of injury: other (he denies injury but staff state he hit his head) Associated symptoms (after fall): denies Related Data Home Medications Medication Instructions Recorded Confirmed aspirin 81 mg tablet 81 mg PO DAILY 05/11/20 08/18/22 cyanocobalamin (vitamin B-12) 1,000 mcg PO DAILY 11/15/20 08/18/22 1,000 mcg capsule donepezil 10 mg tablet 10 mg PO DAILY 08/12/21 08/18/22 Previous Rx's Medication Instructions Recorded blood sugar diagnostic #100 ea 04/25/21 blood sugar diagnostic #100 ea 06/06/21 blood-glucose meter (too.meTouch #1 ea 06/06/21 Ultra2 Meter kit) clotrimazole 1 % topical cream 1 appl topical BID 4 weeks #45 08/12/21 grams lisinopril 10 mg tablet 10 mg PO DAILY #90 tabs 06/16/22 esomeprazole magnesium 40 mg 40 mg PO DAILY #90 caps 08/07/22 capsule,delayed release atorvastatin 20 mg tablet 20 mg PO DAILY #90 tabs 09/04/22 lancets 33 gauge (Leetchiuch Delica #100 ea 09/04/22 Lancets) blood sugar diagnostic (Leetchiuch #100 strips 09/21/22 Ultra Test strips) metformin 500 mg tablet,extended 500 mg PO DAILY #90 tabs 12/14/22 release 24 hr lancets 30 gauge (Samuel Hamilton #100 ea 12/29/22 Plus Lancet) hydrochlorothiazide 12.5 mg tablet 12.5 mg PO DAILY 90 days #90 tabs 01/14/23 Allergies Allergy/AdvReac Type Severity Reaction Status Date / Time No Known Allergies Allergy Verified 12/29/22 08:21 [No Known Allergies*] Review of Systems Review of Systems: Constitutional : No Fever, No Chills, No Fatigue ENT/Mouth : No sore throat, No Rhinorrhea Eyes: No Eye Pain, No Swelling, No Redness Cardiovascular : No Chest Pain, No SOB, No Dyspnea on Exertion Respiratory : No Cough, No Sputum Gastrointestinal : No Nausea, No Vomiting, No Diarrhea, No abdominal Pain Genitourinary : No Dysuria, No Urinary Frequency, No Hematuria, Musculoskeletal : No joint pain, No Myalgias, No Joint Swelling Skin : No Skin Lesions, No rash Neuro : No Weakness, No Numbness, No Dizziness, no Headache Psych : No Anxiety/Panic, No Depression All other systems reviewed and are negative [facility] Past Medical History Attestation statement: The following information was validated with the patient. Source: old records reviewed Medical History TSH elevation Type 2 diabetes mellitus with hyperglycemia GERD (gastroesophageal reflux disease) Hypercholesterolemia Hypertension Surgical History History of inguinal hernia repair History of right hip replacement Family History Family History (Updated 12/29/22 @ 08:22 by Ofelia Ayala CMA) Father No problems noted. Mother No problems noted. Social History Social History Housing: House Alcohol intake: current Alcohol intake frequency: holidays/special occasions only Alcohol type: beer Patient Tobacco Use Status: Former Tobacco user Tobacco use type: Cigarette Years Smoked: stopped 2000 Smoked in Last 30 Days: No e-Cigarette/Vaping Use: Never Used Second Hand Smoke Exposure: No Use of substances other than those prescribed or required for medical reasons: No Advance Directives: No Advance Directives Information Provided: No service: Yes Current occupational status: retired Cognitive needs: No Hearing needs: No Vision needs: Yes Physical Exam Vital Signs: Vital Signs: Last Vital Signs Temp 97.8 F 02/08/23 20:53 Pulse 70 02/08/23 20:53 Resp 17 02/08/23 20:53 BP 144/87 H 02/08/23 20:53 Pulse Ox 100 02/08/23 20:53 O2 Del Method Room Air 02/08/23 20:53 BMI result Body Mass Index 22.5 Appearance: Alert. Oriented X2. No acute distress. Eyes: Pupils equal, round and reactive to light. ENT: Pharynx normal. Atraumatic Neck: Normal inspection. Neck supple. CVS: Normal heart rate and rhythm. Pulses normal. Respiratory: No respiratory distress. Breath sounds normal. Abdomen: Soft and nontender. Skin: Skin warm and dry. Normal skin color. Normal skin turgor. Extremities: No lower extremity edema. No calf ttp Neuro: Oriented X 2. No motor deficit. No sensory deficit. Course Course Course Narrative: small bump in Cr will given IVF and recheck Cr Reevaluation(s) Reevaluation #1: aware of CT scan of cervical spine he has absolutely no pain and normal ROM doubt acute fracture, clinically not consistent. Reevaluation #2: signed out to Dr. Roche pending repeat BMP but anticipate DC home Medications Administered Discontinued Medications Generic Name Dose Route Start Last Admin Trade Name Freq PRN Reason Stop Dose Admin Sodium Chloride 1,000 mls @ 999 mls/hr 02/08/23 19:45 02/08/23 20:44 Ns IV 02/08/23 20:45 Infused .Q1H1M KARISSA Infusion Medical Decision Making Medical Decision Making [facility] Narrative: 87 yo male with PMH of DM, GERD, HLD, HTN, cognitive impairment, renal insufficiency here with c/o unwitnessed fall at this time he has no complaints I see no trauma but he does have cognitive impairment and is over 85 - will need CT head/cspine, CXR and UA - basic labs and EKG. He is pleasant drinking roel jailene and watching TV in no distress, denies extremity or back pain. Differential Diagnosis Differential Diagnoses: The differential diagnosis associated with the presentation includes head strike, dehydration, UTI, trauma Admission/Observation Consideration of admission/observation: Escalation of care including admission/observation considered if BMP improves he can go back to facility Lab Data [facility] Lab Attestation statement: I reviewed the patient's lab results. 02/08/23 19:10 02/08/23 19:10 Labs: Lab Results 02/08/23 02/08/23 Range/Units 19:10 19:48 WBC 8.7 (4.8-10.8) X10*3/uL RBC 4.39 L (4.60-5.80) X10*6/uL Hgb 13.2 L (14.0-18.0) g/dl Hct 40.0 L (42.0-52.0) % MCV 91.1 (80.0-98.0) fL MCH 30.1 (27.0-33.0) pg MCHC 33.0 (31.0-36.0) g/dl RDW 12.9 (11.0-16.0) % Plt Count 263 (160-400) X10*3/uL MPV 9.1 L (9.4-12.4) fL Immature Gran % (Auto) 0.6 H (0.0-0.4) % Neut % (Auto) 78.6 H (45-73) % Lymph % (Auto) 12.9 L (20-40) % [place] % (Auto) 5.7 (2-11) % Eos % (Auto) 1.4 (0-4) % Baso % (Auto) 0.8 (0-2) % Lymph # (Auto) 1.1 L (1.2-4.9) X10*3/uL [place] # (Auto) 0.5 (0.1-1.2) X10*3/uL Eos # (Auto) 0.1 (0.0-0.4) X10*3/uL Baso # (Auto) 0.1 (0.0-0.2) X10*3/uL Abs Immat Gran (auto) 0.05 H (0.00-0.03) X10*3/uL Absolute Neuts (auto) 6.9 (2.0-8.3) x10*3/uL Absolute Nucleated RBC 0.000 (0.0-0.012) X10*3/uL Nucleated RBC % (auto) 0.0 (0.0-0.2) /100WBC PT 11.2 (11.1-13.3) SEC INR 0.9 (0.9-1.1) Sodium 137 (135-145) mmol/L Potassium 5.3 H D (3.3-5.1) mmol/L Chloride 104 (96-108) mmol/L Carbon Dioxide 21 L (22-29) mmol/L Anion Gap 17 (12-20) BUN 36 H (9-16) mg/dL Creatinine 1.95 H (0.5-1.4) mg/dL Estim Creat Clear Calc 23.8 Estimated GFR 33 Random Glucose 203 H (60-115) mg/dL Calcium 10.1 D (8.4-10.2) mg/dL Troponin I High Sens 3.3 (<3.5-35.0) ng/L Urine Color Yellow Urine Appearance Clear Urine pH 5.5 (5.0-9.0) Ur Specific [place] 1.025 (1.005-1.025) Urine Protein Trace (Neg-Trace) mg/dL Urine Glucose (UA) Negative (Negative) mg/dL Urine Ketones Trace (Negative) mg/dL Urine Blood Negative (Negative) Urine Nitrite Negative (Negative) Ur Leukocyte Esterase Negative (Negative) Independent Interpretation I performed an independent interpretation of an: EKG and CT Scan (no acute trauma I do not suspect cervical spine fracture ) Interpretation: Rate:063 Rhythm: NSR [place]: left Normal P waves. Normal JOSE. Normal QRS complex. Poor R wave progression ST T wave : normal no SUJATA qTC: normal prior studies: no acute ischemia The study has been interpreted contemporaneously by me. . Radiology Impression Discussion of test interpretation with radiology: I have reviewed the radiologist's reading. External Record Review External record reviewed: Inpatient record Discharge Plan Discharge Clinical Impression: Acute dehydration Patient Disposition: Home, Self-Care Instructions: Dehydration (ED) Additional Instructions: no acute trauma to head or neck. given IVF for dehydration, no UTI. keep hydrated. avoid HCTZ, metformin, lisinopril for 24 hour repeat kidney function in 48 hours. return for worsening symptoms, weakness, dizziness, difficulty urinating or any other concerns. Prescriptions: No Action (DME) OneTouch Ultra Blue Test Strip Strip See Rx Instructions .ROUTE .MEDSUPPLY Qty: 100 3RF Rx Instructions: As directed check blood sugars once a day (DME) blood-glucose meter [OneTouch Ultra2 Meter] Kit See Rx Instructions .ROUTE .MEDSUPPLY Qty: 1 0RF Rx Instructions: As directed check the blood sugar once a day (DME) blood sugar diagnostic Strip See Rx Instructions .ROUTE .MEDSUPPLY Qty: 100 3RF Rx Instructions: As directed check the blood sugar once a day lisinopril 10 mg tablet 10 mg PO DAILY Qty: 90 3RF esomeprazole magnesium 40 mg capsule,delayed release(DR/EC) 40 mg PO DAILY Qty: 90 3RF atorvastatin 20 mg tablet 20 mg PO DAILY Qty: 90 1RF (DME) lancets [OneTouch Delica Lancets] 33 gauge misc See Rx Instructions .ROUTE .MEDSUPPLY Qty: 100 3RF Rx Instructions: As directed check the blood sugar q.day (DME) OneTouch Ultra Test Strip See Rx Instructions .ROUTE .COMPLEX Qty: 100 3RF Dose Instruction: DIRECTED CHECK THE BLOOD SUGAR ONCE A DAY Rx Instructions: DIRECTED CHECK THE BLOOD SUGAR ONCE A DAY metformin 500 mg tablet extended release 24 hr 500 mg PO DAILY Qty: 90 1RF hydrochlorothiazide 12.5 mg tablet 12.5 mg PO DAILY 90 Days Qty: 90 3RF cyanocobalamin (vitamin B-12) 1,000 mcg capsule 1,000 mcg PO DAILY donepezil 10 mg tablet 10 mg PO DAILY clotrimazole 1 % cream 1 appl topical BID 28 Days Qty: 45 0RF aspirin 81 mg tablet 81 mg PO DAILY (DME) lancets [OneTouch Delica Plus Lancet] 30 gauge misc See Rx Instructions .Route Qty: 100 3RF Rx Instructions: As directed check the BS QD
[2023-02-08 19:23] LABS: INTERNATIONAL NORM RATIO 0.9 (0.9-1.1); Prothrombin Time 11.2 SEC (11.1-13.3)
[2023-02-08 19:31] LABS: Anion Gap 17 (12-20); Blood Urea Nitrogen 36 mg/dL (9-16); Calcium 10.1 mg/dL (8.4-10.2); Carbon Dioxide 21 mmol/L (22-29); Chloride 104 mmol/L (96-108); Creatinine Clr Calc Pharmacy 23.8; Estimated Glomerular Filt Rate 33; Glucose Random 203 mg/dL (60-115); Potassium 5.3 mmol/L (3.3-5.1); Sodium 137 mmol/L (135-145)
[2023-02-08] MEDS: 0.9 % Sodium Chloride 1,000 ML 999 ML IV (19:43)
[2023-02-08 19:51] LABS: Troponin-I High Sensitivity 3.3 ng/L (<3.5-35.0)
[2023-02-08 19:54] LABS: Appearance Urine Clear; Color Urine Yellow; Glucose Urine UA Negative (Negative); Leukocyte Esterase Urine Negative (Negative); Nitrite Urine Negative (Negative); PH 5.5 (5.0-9.0); Specific Gravity - Urine 1.025 (1.005-1.025); Urine Blood Negative (Negative); Urine Ketones Trace mg/dL (Negative); Urine Protein Trace mg/dL (Neg-Trace)
[2023-02-08 20:53] VITALS: BP 144/87; PULSE 70; RESP 17; TEMP 36.6; O2SAT 100
--- NOTE | 2023-02-08 21:22 | MHC.EDTECH ---
Walked patient to BR
--- NOTE | 2023-02-08 21:50 | PC.NURSE ---
pt continues to rest comfortably, offers no complaints to this RN, respiraitons even and unlabored, skin pwd, alert and oriented x2 (at baseline)
[2023-02-08 21:51] LABS: Anion Gap 10 (12-20); Blood Urea Nitrogen 23 mg/dL (9-16); Calcium 5.9 mg/dL (8.4-10.2); Carbon Dioxide 15 mmol/L (22-29); Chloride 120 mmol/L (96-108); Estimated Glomerular Filt Rate > 60; Glucose Random 148 mg/dL (60-115); Sodium 142 mmol/L (135-145)
--- NOTE | 2023-02-08 22:01 | PC.NURSE ---
this RN spoke with MD, both agree to re-draw BMP
[2023-02-08 22:37] LABS: Anion Gap 14 (12-20); Blood Urea Nitrogen 32 mg/dL (9-16); Carbon Dioxide 21 mmol/L (22-29); Chloride 108 mmol/L (96-108); Creatinine Clr Calc Pharmacy 28.5; Estimated Glomerular Filt Rate 40; Glucose Random 186 mg/dL (60-115); Potassium 4.5 mmol/L (3.3-5.1); Sodium 138 mmol/L (135-145)
== END 2023-02-08 23:24 | disposition home or self-care (01) ==
PROVIDERS: Emergency Medicine; Emergency Provider Emergency Medicine
DX: E86.0 Dehydration (principal); R51.9 Headache, unspecified; M54.2 Cervicalgia; R94.31 Abnormal electrocardiogram [ECG] [EKG]; Z87.891 Personal history of nicotine dependence; Z79.899 Other long term (current) drug therapy
CPT/HCPCS: 36415; 70450; 72125; 80048; 81003; 84484; 85025; 85610; 93005; 96360; 99284; 99285

== ENCOUNTER 2023-02-12 04:58 | Outpatient (REF) | payer MEDICARE, SELFPAY ==
[2023-02-12 07:06] LABS: Anion Gap 16 (12-20); Blood Urea Nitrogen 27 mg/dL (9-16); Calcium 9.3 mg/dL (8.4-10.2); Carbon Dioxide 22 mmol/L (22-29); Chloride 104 mmol/L (96-108); Estimated Glomerular Filt Rate 48; Glucose Random 105 mg/dL (60-115); Sodium 138 mmol/L (135-145)
== END 2023-02-12 04:59 | disposition home or self-care (01) ==
LOC: HO.HSH3N 04:58
PROVIDERS: Visit Provider Nurse Practitioner Acute Care
DX: E86.0 Dehydration (principal); N17.9 Acute kidney failure, unspecified
CPT/HCPCS: 36415; 80048

== ENCOUNTER 2023-03-05 05:33 | Outpatient (REF) | payer MEDICARE, SELFPAY ==
[2023-03-05 06:21] LABS: MANUAL DIFF FLAG NO
[2023-03-05 06:24] LABS: Basophils Absolute Auto 0.1 X10*3/uL (0.0-0.2); Basophils Percent Auto 1.1 % (0-2); Eosinophils Absolute Auto 0.2 X10*3/uL (0.0-0.4); Eosinophils Percent Auto 4.3 % (0-4); Hemoglobin 11.6 g/dl (14.0-18.0); Imm Gran Abs Auto 0.04 X10*3/uL (0.00-0.03); Imm Gran Pct Auto 0.7 % (0.0-0.4); Lymphocytes Absolute Auto 1.7 X10*3/uL (1.2-4.9); Lymphocytes Percent Auto 31.6 % (20-40); Mean Corpuscular HGB Conc 33.1 g/dl (31.0-36.0); Mean Corpuscular Volume 90.4 fL (80.0-98.0); Mean Platelet Volume 9.3 fL (9.4-12.4); Monocytes Absolute Auto 0.5 X10*3/uL (0.1-1.2); Monocytes Percent Auto 8.9 % (2-11); Neutrophils Absolute Auto 2.9 x10*3/uL (2.0-8.3); Neutrophils Percent Auto 53.4 % (45-73); Platelet Count 210 X10*3/uL (160-400); Red Blood Count 3.87 X10*6/uL (4.60-5.80); Red Cell Distribution Width 13.1 % (11.0-16.0); White Blood Count 5.4 X10*3/uL (4.8-10.8)
[2023-03-05 06:57] LABS: Thyroid Stimulating Hormone 4.75 uIU/mL (0.32-4.0)
== END 2023-03-05 05:34 | disposition home or self-care (01) ==
LOC: HO.HSH3N 05:33
PROVIDERS: Visit Provider Nurse Practitioner Acute Care
DX: E03.9 Hypothyroidism, unspecified (principal); D64.9 Anemia, unspecified
CPT/HCPCS: 36415; 84443; 85025

== ENCOUNTER 2023-04-20 05:32 | Outpatient (REF) | payer MEDICARE, SELFPAY | END 2023-04-20 05:33 | disposition home or self-care (01) | LOC: HO.HSH3N 05:32 | PROVIDERS: Visit Provider Nurse Practitioner Acute Care | DX: E86.0 Dehydration (principal) | CPT/HCPCS: 36415; 80048; 83735; 85025 ==

== ENCOUNTER 2023-04-21 00:29 | Emergency (ER) | payer MEDICARE, SELFPAY ==
[2023-04-21] VITALS (10 sets, daily range): BP systolic 89–151; BP diastolic 50–96; PULSE 54–87; RESP 16–18; TEMP 37.3; O2SAT 97–99; BMI 28.3
--- NOTE | 2023-04-21 01:31 | ED.GENADULT ---
HPI - General Adult General Chief complaint: Fall Stated complaint: neck pain s/p fall dementia Time Seen by Provider: 04/21/23 00:58 Source: patient, RN notes reviewed and old records reviewed Mode of arrival: EMS Limitations: other (Dementia at baseline) History of Present Illness HPI narrative: 87-year-old male with past medical history significant for dementia, type 2 diabetes, GERD, hyperlipidemia, hypertension presents for evaluation of neck pain. [facility] around 10:00 p.m., about 3-1/2 hours ago he fell out of bed He was placed back into bed by staff at the facility but a couple hours later began to complain of neck pain Therefore in a month was called to bring the patient to the ER The patient does not remember how he fell and does not know if he hit his head or not He complains of pain in his neck He also complains of pain in his ?buttocks. ? He denies any other injuries On arrival to the ED the patient was found to be hypotensive at 93/50. Related Data Home Medications Medication Instructions Recorded Confirmed donepezil 10 mg tablet 10 mg PO DAILY 08/12/21 04/21/23 acetaminophen 325 mg tablet 650 mg PO Q4H PRN Fever Or Pain 04/21/23 04/21/23 aluminum-mag hydroxide-simethicone 10 ml PO TID PRN Gastric Reflux 04/21/23 04/21/23 200 mg-200 mg-20 mg/5 mL oral susp bisacodyl 10 mg rectal suppository 10 mg AL DAILY PRN Constipation 04/21/23 04/21/23 calcium carbonate 500 mg calcium 500 mg PO Q30M PRN GERD 04/21/23 04/21/23 (1,250 mg) chewable tablet cholecalciferol (vitamin D3) 25 25 mcg PO BID 04/21/23 04/21/23 mcg (1,000 unit) tablet (Vitamin D3) citalopram 10 mg/5 mL oral solution 5 mg PO DAILY 04/21/23 04/21/23 cyanocobalamin (vitamin B-12) 500 500 mcg PO Q OTHER DAY 04/21/23 04/21/23 mcg tablet guaifenesin 100 mg/5 mL oral liquid 200 mg PO QID PRN Cough 04/21/23 04/21/23 lactulose 10 gram/15 mL oral 10 g PO DAILY PRN Constipation 04/21/23 04/21/23 solution mirtazapine 7.5 mg tablet 7.5 mg PO BEDTIME 04/21/23 04/21/23 nystatin 100,000 unit/mL oral 400,000 unit PO QID 04/21/23 04/21/23 suspension omeprazole 20 mg tablet,delayed 20 mg PO DAILY 04/21/23 04/21/23 release polyethylene glycol 3350 17 17 g PO DAILY 04/21/23 04/21/23 gram/dose oral powder sennosides 8.6 mg tablet (senna) 8.6 mg PO DAILY@1700 04/21/23 04/21/23 sodium phosphates 19 gram-7 118 ml AL DAILY PRN constipaiton 04/21/23 04/21/23 gram/118 mL enema (Fleet Enema) Previous Rx's Medication Instructions Recorded blood sugar diagnostic #100 ea 04/25/21 blood sugar diagnostic #100 ea 06/06/21 blood-glucose meter (Datalogixuch #1 ea 06/06/21 Ultra2 Meter kit) lisinopril 10 mg tablet 10 mg PO DAILY #90 tabs 06/16/22 lancets 33 gauge (OneTouch Delica #100 ea 09/04/22 Lancets) blood sugar diagnostic (OneTouch #100 strips 09/21/22 Ultra Test strips) lancets 30 gauge (GanjiTouch Delica #100 ea 12/29/22 Plus Lancet) hydrochlorothiazide 12.5 mg tablet 12.5 mg PO DAILY 90 days #90 tabs 01/14/23 Allergies Allergy/AdvReac Type Severity Reaction Status Date / Time No Known Allergies Allergy Verified 12/29/22 08:21 [No Known Allergies*] Review of Systems Constitutional: Constitutional: Denies chills, Denies fever(s), Reports frequent falls and Reports headache(s) ENT: Reports headache(s) and Reports neck pain Cardiovascular: Cardiovascular: Denies chest pain Gastrointestinal: Gastrointestinal: Denies abdominal pain Musculoskeletal: Musculoskeletal: Reports back pain and Reports neck pain Neurologic: Reports frequent falls and Reports headache(s) PMFSH Past Medical History Onset Date is defined in the Problem List Problems that require an onset date and time if occurred within 24 hrs of arrival to the ED Aortic Dissection and Rupture; Neurologic impairment; Cardiopulmonary Arrest; Endotracheal Intubation; Insertion or Replacement of Mechanical Circulatory Assist Device Medical History TSH elevation Type 2 diabetes mellitus with hyperglycemia GERD (gastroesophageal reflux disease) Hypercholesterolemia Hypertension Surgical History History of inguinal hernia repair History of right hip replacement Family History Family History (Updated 12/29/22 @ 08:22 by Ofelia Ayala CMA) Father No problems noted. Mother No problems noted. Social History Social History Housing: House Unable to assess alcohol history related to: Unknown Alcohol intake: current Alcohol intake frequency: holidays/special occasions only Alcohol type: beer Patient Tobacco Use Status: Former Tobacco user Tobacco use type: Cigarette Years Smoked: stopped 1999 e-Cigarette/Vaping Use: Never Used Second Hand Smoke Exposure: No Use of substances other than those prescribed or required for medical reasons: Unknown Advance Directives: No Advance Directives Information Provided: Yes service: Yes Current occupational status: retired Cognitive needs: No Hearing needs: No Vision needs: Yes Physical Exam ED Vital Signs: Vital Signs - 24 hr 04/21/23 01:00 04/21/23 03:16 04/21/23 03:17 Temperature 99.2 F Pulse Rate 60 72 86 Respiratory Rate 18 Blood Pressure 93/50 L 117/56 L 109/58 L Pulse Oximetry 97 Oxygen Delivery Method Room Air 04/21/23 03:17 04/21/23 06:06 04/21/23 06:26 Temperature Pulse Rate 83 Respiratory Rate Blood Pressure 94/55 L 89/54 L 118/57 L Pulse Oximetry Oxygen Delivery Method 04/21/23 06:27 04/21/23 06:27 04/21/23 07:59 Temperature Pulse Rate 87 77 67 Respiratory Rate 16 Blood Pressure 151/63 H 116/55 L 144/56 H Pulse Oximetry 99 Oxygen Delivery Method Room Air 04/21/23 09:07 04/21/23 09:09 04/21/23 09:09 Temperature Pulse Rate 54 59 72 Respiratory Rate Blood Pressure 134/61 127/58 L 122/58 L Pulse Oximetry Oxygen Delivery Method BMI result Body Mass Index 28.3 Const General: healthy appearing, comfortable, no acute distress, alert and awake Nutritional Appearance: well nourished Orientation/consciousness: patient oriented x3 HENMT Head: Yes normocephalic and Yes atraumatic Eyes Eyelids: Yes eyelids normal Conjunctivae: conjunctivae normal Sclerae: sclerae normal Corneas: corneas normal EOM: EOMs intact bilaterally Chest Chest palpation & inspection: no crepitus Resp Effort & Inspection: normal respiratory effort, able to speak in complete sentences and not labored GI Inspection: No distended Palpation (GI): Soft to palpation, not firm, nontender, no guarding and not rigid Back/Spine/Pelvis Other: Patient has no hip tenderness bilaterally but has pain in his sacrum with manipulation of the hips bilaterally. Cervical Spine: collar present Skin General skin exam: elasticity normal Neuro General: patient oriented x3 Cranial nerves: Yes Bilaterally intact EOM present Cognition (Neuro): normal cognition Extrem Other: Moving all extremities well without any obvious deformities. No shortening or rotation of the lower extremities bilaterally Course Reevaluation(s) Reevaluation #1: Patient was seen by hospitalist, Sherley Cook NP who had him evaluated patient. Patient is no longer orthostatic, and is feeling well. [facility] closely monitored and receive physical therapy and occupational therapy. She reviewed his labs and was not concerned given hyponatremia and he has no urinary tract infection. His creatinine is around his baseline. I spoke to patient, and reviewed vital signs, patient is no longer orthostatic, and is feeling well. He states that he is feeling well and would like to [facility]. Patient given return precautions. Will set up transportation for transfer back to [facility]. Patient stable for discharge. Time: 09:01 Medications Administered Discontinued Medications Generic Name Dose Route Start Last Admin Trade Name Freq PRN Reason Stop Dose Admin Sodium Chloride 1,000 mls @ 999 mls/hr 04/21/23 01:15 04/21/23 05:50 Ns IV 04/21/23 02:15 Infused .Q1H1M KARISSA Infusion Sodium Chloride 1,000 mls @ 999 mls/hr 04/21/23 05:07 04/21/23 08:39 Ns IVCONT 04/21/23 06:07 Infused .Q1H1M ONE Infusion Medical Decision Making Medical Decision Making MDM Narrative: 87-year-old male history of dementia presents for evaluation of witnessed fall. He was complaining of neck pain is a very poor historian. Will get a CT scan the brain and cervical spine. There are no objective findings of trauma. The patient is found to be hypotensive at 93/50, given the hypertension we will check labs, ABG with IV fluids. Will get x-rays of the sacrum and pelvis given the pain I received sign-out from ZIGGY Butler. -CT scan of head and cervical spine no acute abnormalities. -orthostatic vitals were positive, patient given IV fluids -chest x-ray negative -patient refused x-ray of the pelvis, states that he can walk fine and has no pain -after IV fluids, patient's sodium improved to 132. Patient feeling much better, however, patient's orthostatics were positive again. Patient receiving a 2nd bag of IV fluids. -after 2 L of IV fluids, patient still has significant orthostatic hypotension. From sitting to standing, patient dropped from 151/63 to 116/55 -patient will need more prolonged gentle hydration. -I discussed the patient with Dr. Leon, patient being admitted Differential Diagnosis Differential Diagnoses: The differential diagnosis associated with the presentation includes (Dehydration, orthostatic hypotension, mechanical fall) Admission/Observation Consideration of admission/observation: Escalation of care including admission/observation considered Consult Healthcare Provider Management of the patient was discussed with: Hospitalist Lab Data MDM Lab Attestation statement: I reviewed the patient's lab results. 04/21/23 01:45 04/21/23 04:25 Labs: Lab Results 04/21/23 04/21/23 04/21/23 Range/Units 01:45 02:08 04:25 WBC 6.3 (4.8-10.8) X10*3/uL RBC 3.30 L (4.60-5.80) X10*6/uL Hgb 9.9 L (14.0-18.0) g/dl Hct 29.1 L (42.0-52.0) % MCV 88.2 (80.0-98.0) fL MCH 30.0 (27.0-33.0) pg MCHC 34.0 (31.0-36.0) g/dl RDW 13.2 (11.0-16.0) % Plt Count 268 (160-400) X10*3/uL MPV 8.6 L (9.4-12.4) fL Immature Gran % (Auto) 1.6 H (0.0-0.4) % Neut % (Auto) 71.7 (45-73) % Lymph % (Auto) 13.3 L (20-40) % [place] % (Auto) 9.9 (2-11) % Eos % (Auto) 2.9 (0-4) % Baso % (Auto) 0.6 (0-2) % Lymph # (Auto) 0.8 L (1.2-4.9) X10*3/uL [place] # (Auto) 0.6 (0.1-1.2) X10*3/uL Eos # (Auto) 0.2 (0.0-0.4) X10*3/uL Baso # (Auto) 0.0 (0.0-0.2) X10*3/uL Abs Immat Gran (auto) 0.10 H (0.00-0.03) X10*3/uL Absolute Neuts (auto) 4.5 (2.0-8.3) x10*3/uL Absolute Nucleated RBC 0.000 (0.0-0.012) X10*3/uL Nucleated RBC % (auto) 0.0 (0.0-0.2) /100WBC PT 10.9 L (11.1-13.3) SEC INR 0.9 (0.9-1.1) APTT 25.6 L (26.0-36.4) SEC Sodium 129 L 132 L (135-145) mmol/L Potassium 3.8 3.8 (3.3-5.1) mmol/L Chloride 101 103 (96-108) mmol/L Carbon Dioxide 20 L 20 L (22-29) mmol/L Anion Gap 12 13 (12-20) BUN 46 H 42 H (9-16) mg/dL Creatinine 1.83 H 1.72 H (0.5-1.4) mg/dL Estim Creat Clear Calc 26.3 28.0 Estimated GFR 35 38 Random Glucose 139 H 119 H (60-115) mg/dL Calcium 8.0 L 7.9 L (8.4-10.2) mg/dL Total Bilirubin 0.7 (0.0-1.0) mg/dL AST 14 (5-37) U/L ALT 12 (0-40) U/L Alkaline Phosphatase 83 (39-117) U/L Troponin I High Sens 27.4 D (<3.5-35.0) ng/L Total Protein 5.4 L (6.5-8.0) g/dL Albumin 3.0 L (3.5-5.0) g/dL Lipase 30 (8-78) U/L Urine Color Yellow Urine Appearance Clear Urine pH 5.5 (5.0-9.0) Ur Specific [place] 1.015 (1.005-1.025) Urine Protein Negative (Neg-Trace) mg/dL Urine Glucose (UA) Negative (Negative) mg/dL Urine Ketones Negative (Negative) mg/dL Urine Blood Negative (Negative) Urine Nitrite Negative (Negative) Ur Leukocyte Esterase Negative (Negative) Urine RBC 0-2 (0-2) /HPF Urine WBC 0-5 (0-5) /HPF Ur Squamous Epith Cells 0-2 (0-2) /HPF Urine Bacteria None Seen (None Seen) Hyaline Casts 0-2 (0-2) /LPF Influenza Type A (PCR) NEGATIVE (Negative) Influenza Type B (PCR) NEGATIVE (Negative) RSV RNA Qual (PCR) NEGATIVE (Negative) SARS-CoV-2 RNA (RT-PCR) NEGATIVE (Negative) Critical Care Time Critical Care Time Critical Care Time: Yes Total Critical Care Time: 75 Attestation: I have personally provided critical care time. Time includes review of lab data, radiology results, discussion with consultants, and monitoring for potential decompensation. Intervention performed as documented. Discharge Plan Discharge Clinical Impression: Orthostatic hypotension, Acute hyponatremia, Fall Patient Disposition: Xfer Other Transfer Details: [facility] Instructions: Hyponatremia (ED), Hypotension (ED), Fall Prevention (ED) Additional Instructions: Your seen in the emergency department due to a fall. Your blood pressure was low, however this improved after receiving fluids. Your lab work was reassuring. Please follow-up with your primary care physician tomorrow. If you have any worsening or new symptoms, please return to the emergency room or call 911 Prescriptions: No Action (DME) OneTouch Ultra Blue Test Strip Strip See Rx Instructions .ROUTE .MEDSUPPLY Qty: 100 3RF Rx Instructions: As directed check blood sugars once a day (DME) blood-glucose meter [OneTouch Ultra2 Meter] Kit See Rx Instructions .ROUTE .MEDSUPPLY Qty: 1 0RF Rx Instructions: As directed check the blood sugar once a day (DME) blood sugar diagnostic Strip See Rx Instructions .ROUTE .MEDSUPPLY Qty: 100 3RF Rx Instructions: As directed check the blood sugar once a day lisinopril 10 mg tablet 10 mg PO DAILY Qty: 90 3RF (DME) lancets [OneTouch Delica Lancets] 33 gauge misc See Rx Instructions .ROUTE .MEDSUPPLY Qty: 100 3RF Rx Instructions: As directed check the blood sugar q.day (DME) OneTouch Ultra Test Strip See Rx Instructions .ROUTE .COMPLEX Qty: 100 3RF Dose Instruction: DIRECTED CHECK THE BLOOD SUGAR ONCE A DAY Rx Instructions: DIRECTED CHECK THE BLOOD SUGAR ONCE A DAY hydrochlorothiazide 12.5 mg tablet 12.5 mg PO DAILY 90 Days Qty: 90 3RF sennosides [senna] 8.6 mg Tablet 8.6 mg PO DAILY@1700 nystatin 100,000 unit/mL Suspension 400,000 unit PO QID Rx Instructions: administer 1/2 of dose in each side of the mouth x7 days cyanocobalamin (vitamin B-12) 500 mcg Tablet 500 mcg PO Q OTHER DAY polyethylene glycol 3350 17 gram/dose Powder 17 g PO DAILY cholecalciferol (vitamin D3) [Vitamin D3] 25 mcg (1,000 unit) Tablet 25 mcg PO BID acetaminophen 325 mg Tablet 650 mg PO Q4H PRN (Reason: Fever Or Pain) guaifenesin 100 mg/5 mL Liquid 200 mg PO QID PRN (Reason: Cough) bisacodyl 10 mg Suppository 10 mg AL DAILY PRN (Reason: Constipation) Fleet Enema 19-7 gram/118 mL Enema 118 ml AL DAILY PRN (Reason: constipaiton) calcium carbonate 500 mg calcium (1,250 mg) Tablet,Chewable 500 mg PO Q30M MDD 8 tablets PRN (Reason: GERD) alum-mag hydroxide-simeth [Mylanta] 200-200-20 mg/5 mL Suspension 10 ml PO TID PRN (Reason: Gastric Reflux) Rx Instructions: administer between meals and at bedtime lactulose 10 gram/15 mL Solution 10 g PO DAILY PRN (Reason: Constipation) omeprazole 20 mg Tablet,Delayed Release (Dr/Ec) 20 mg PO DAILY citalopram 10 mg/5 mL Solution 5 mg PO DAILY mirtazapine 7.5 mg Tablet 7.5 mg PO BEDTIME donepezil 10 mg tablet 10 mg PO DAILY (DME) lancets [OneTouch Delica Plus Lancet] 30 gauge misc See Rx Instructions .Route Qty: 100 3RF Rx Instructions: As directed check the BS QD
--- NOTE | 2023-04-21 01:31 | PC.NURSE ---
pt biba from [facility] for a unwitnessed fall. staff reports pt fell around 10pm during the night, was placed back in bed to be evaluated by the doctor in the morning. pt then began reporting neck pain. pt currently denies neck pain but reports ear pain where c collar is placed. pt has dementia at baseline. pt able to state he is at the hospital but unable to state the year. provider at bedside and aware of pt BP reading. 22g placed in right forearm by facility staff.
--- NOTE | 2023-04-21 08:50 | PHA.MEDREC ---
Pharmacy Consult ? Medication Reconciliation Pharmacy has completed the medication reconciliation. used list from [facility]. Atorvastatin 20mg, aspirin 81mg, and metformin 500mg daily were discontinued yesterday (04/20) and last given to patient yesterday as well.
== END 2023-04-25 03:39 | disposition skilled nursing facility (03) ==
PROVIDERS: Emergency Provider Emergency Medicine
DX: I95.1 Orthostatic hypotension (principal); E87.1 Hypo-osmolality and hyponatremia; M54.2 Cervicalgia; R51.9 Headache, unspecified; E83.51 Hypocalcemia; R53.1 Weakness; R10.2 Pelvic and perineal pain; Z91.81 History of falling; Z20.822 Contact with and (suspected) exposure to COVID-19; Z20.828 Contact with and (suspected) exposure to other viral communicable diseases; E11.9 Type 2 diabetes mellitus without complications; I10 Essential (primary) hypertension; E78.00 Pure hypercholesterolemia, unspecified; D64.9 Anemia, unspecified; N28.9 Disorder of kidney and ureter, unspecified; Z87.891 Personal history of nicotine dependence
CPT/HCPCS: 0241U; 36415; 70450; 71045; 72125; 80048; 80053; 81001; 83690; 84484; 85025; 85610; 85730; 93005; 96360; 96361; 99285

== ENCOUNTER → 2023-04-21 01:05 | Outpatient (BNV) | payer MEDICARE, SELFPAY | PROVIDERS: Emergency Provider Emergency Medicine; Visit Provider Internal Medicine Cardiovascular Disease | DX: I48.91 Unspecified atrial fibrillation (principal); R94.31 Abnormal electrocardiogram [ECG] [EKG] | CPT/HCPCS: 93010 ==

== ENCOUNTER 2023-04-23 05:02 | Outpatient (REF) | payer MEDICARE, SELFPAY | END 2023-04-23 05:03 | disposition home or self-care (01) | LOC: HO.HSH3N 05:02 | PROVIDERS: Visit Provider Internal Medicine | DX: N17.9 Acute kidney failure, unspecified (principal); Z91.81 History of falling | CPT/HCPCS: 36415; 80048; 85025 ==

== ENCOUNTER 2023-04-24 05:14 | Outpatient (REF) | payer MEDICARE, SELFPAY ==
[2023-04-24 06:58] LABS: Alanine Aminotransferase 12 U/L (0-40); Albumin Level 2.5 g/dL (3.5-5.0); Alkaline Phosphatase 72 U/L (39-117); Anion Gap 9 (12-20); Aspartate Amino Transferase 16 U/L (5-37); Bilirubin Direct 0.2 mg/dL (0.0-0.5); Bilirubin Total 0.5 mg/dL (0.0-1.0); Blood Urea Nitrogen 21 mg/dL (9-16); Calcium 7.8 mg/dL (8.4-10.2); Carbon Dioxide 22 mmol/L (22-29); Chloride 107 mmol/L (96-108); Cholesterol 109 mg/dL (<200); Estimated Glomerular Filt Rate 46; Glucose Random 134 mg/dL (60-115); Potassium 3.8 mmol/L (3.3-5.1); Sodium 134 mmol/L (135-145); Total Protein 4.7 g/dL (6.5-8.0)
[2023-04-24 07:12] LABS: Ferritin 158 ng/mL (20-250)
[2023-04-25 05:41] LABS: Haptoglobin 115 MG/DL ((30-200))
[2023-05-01 08:53] LABS: IgA 159 mg/dL (70-320); IgG 759 mg/dL (600-1540); IgM 27 mg/dL (50-300)
== END 2023-04-24 05:15 | disposition home or self-care (01) ==
LOC: HO.HSH3N 05:14
PROVIDERS: Visit Provider Nurse Practitioner Acute Care
DX: D64.9 Anemia, unspecified (principal); N17.9 Acute kidney failure, unspecified
CPT/HCPCS: 36415; 80048; 80076; 82465; 82728; 82784; 83010; 86334

== ENCOUNTER 2023-05-09 05:07 | Outpatient (REF) | payer MEDICARE, SELFPAY ==
[2023-05-09 07:56] LABS: Thyroid Stimulating Hormone 8.23 uIU/mL (0.32-4.0)
== END 2023-05-09 05:08 | disposition home or self-care (01) ==
LOC: HO.HSH3N 05:07
PROVIDERS: Visit Provider Internal Medicine Endocrinology, Diabetes & Metabolism
DX: E03.9 Hypothyroidism, unspecified (principal)
CPT/HCPCS: 36415; 84443

== ENCOUNTER 2023-05-14 05:09 | Outpatient (REF) | payer MEDICARE, SELFPAY ==
[2023-05-14 06:47] LABS: Free T4 (Free Thyroxine) 0.85 ng/dL (0.71-1.85); Thyroid Stimulating Hormone 7.53 uIU/mL (0.32-4.0)
[2023-05-15 07:28] LABS: Triiodothyronine T3 Total 100 ng/dL (76-181)
== END 2023-05-14 05:10 | disposition home or self-care (01) ==
LOC: HO.HSH3N 05:09
PROVIDERS: Visit Provider Nurse Practitioner Acute Care
DX: E03.9 Hypothyroidism, unspecified (principal)
CPT/HCPCS: 36415; 84439; 84443; 84480

== ENCOUNTER 2023-06-05 05:08 | Outpatient (REF) | payer MEDICARE, SELFPAY ==
[2023-06-05 06:42] LABS: Thyroid Stimulating Hormone 5.29 uIU/mL (0.32-4.0)
== END 2023-06-05 05:09 | disposition home or self-care (01) ==
LOC: HO.HSH3N 05:08
PROVIDERS: Visit Provider Nurse Practitioner Acute Care
DX: E03.9 Hypothyroidism, unspecified (principal)
CPT/HCPCS: 36415; 84443

== ENCOUNTER 2023-06-29 06:45 | Outpatient (REF) | payer MEDICARE, SELFPAY ==
[2023-06-29 07:19] LABS: Anion Gap 13 (12-20); Blood Urea Nitrogen 24 mg/dL (9-16); Calcium 8.7 mg/dL (8.4-10.2); Carbon Dioxide 22 mmol/L (22-29); Chloride 106 mmol/L (96-108); Estimated Glomerular Filt Rate 59; Glucose Fasting 128 mg/dL (60-99); Potassium 4.2 mmol/L (3.3-5.1); Sodium 137 mmol/L (135-145)
[2023-06-29 07:37] LABS: Thyroid Stimulating Hormone 3.46 uIU/mL (0.32-4.0)
== END 2023-06-29 06:46 | disposition home or self-care (01) ==
LOC: HO.HSH3N 06:45
PROVIDERS: Visit Provider Nurse Practitioner Acute Care
DX: E03.9 Hypothyroidism, unspecified (principal)
CPT/HCPCS: 36415; 80048; 84443

== ENCOUNTER 2023-07-27 06:21 | Outpatient (REF) | payer MEDICARE, SELFPAY ==
[2023-07-27 06:59] LABS: Anion Gap 11 (12-20); Blood Urea Nitrogen 41 mg/dL (9-16); Carbon Dioxide 25 mmol/L (22-29); Chloride 105 mmol/L (96-108); Estimated Glomerular Filt Rate 50; Glucose Random 124 mg/dL (60-115); Potassium 4.4 mmol/L (3.3-5.1); Sodium 137 mmol/L (135-145)
[2023-07-27 07:24] LABS: Thyroid Stimulating Hormone 3.57 uIU/mL (0.32-4.0)
== END 2023-07-27 06:22 | disposition home or self-care (01) ==
LOC: HO.HSH3N 06:21
PROVIDERS: Visit Provider Nurse Practitioner Acute Care
DX: E03.9 Hypothyroidism, unspecified (principal)
CPT/HCPCS: 36415; 80048; 84443

== ENCOUNTER 2023-09-25 06:45 | Outpatient (REF) | payer MEDICARE, SELFPAY ==
[2023-09-25 06:51] LABS: MANUAL DIFF FLAG NO
[2023-09-25 07:39] LABS: Basophils Percent Auto 0.6 % (0-2); Eosinophils Percent Auto 0.1 % (0-4); Hematocrit 34.7 % (42.0-52.0); Hemoglobin 11.3 g/dl (14.0-18.0); Imm Gran Abs Auto 0.03 X10*3/uL (0.00-0.03); Imm Gran Pct Auto 0.4 % (0.0-0.4); Lymphocytes Absolute Auto 0.5 X10*3/uL (1.2-4.9); Lymphocytes Percent Auto 7.1 % (20-40); Mean Corpuscular HGB Conc 32.6 g/dl (31.0-36.0); Mean Corpuscular Hemoglobin 27.5 pg (27.0-33.0); Mean Corpuscular Volume 84.4 fL (80.0-98.0); Monocytes Absolute Auto 0.7 X10*3/uL (0.1-1.2); Monocytes Percent Auto 9.7 % (2-11); Neutrophils Absolute Auto 5.5 x10*3/uL (2.0-8.3); Neutrophils Percent Auto 82.1 % (45-73); Red Blood Count 4.11 X10*6/uL (4.60-5.80); Red Cell Distribution Width 16.9 % (11.0-16.0); White Blood Count 6.7 X10*3/uL (4.8-10.8)
[2023-09-25 07:51] LABS: Mean Platelet Volume 9.5 fL (9.4-12.4); Platelet Count 196 X10*3/uL (160-400)
[2023-09-25 07:58] LABS: Alanine Aminotransferase 12 U/L (0-40); Albumin Level 3.7 g/dL (3.5-5.0); Alkaline Phosphatase 75 U/L (39-117); Anion Gap 12 (12-20); Aspartate Amino Transferase 16 U/L (5-37); Bilirubin Total 0.8 mg/dL (0.0-1.0); Blood Urea Nitrogen 21 mg/dL (9-16); Calcium 9.3 mg/dL (8.4-10.2); Carbon Dioxide 25 mmol/L (22-29); Chloride 103 mmol/L (96-108); Estimated Glomerular Filt Rate > 60; Glucose Random 130 mg/dL (60-115); Sodium 136 mmol/L (135-145); Total Protein 6.7 g/dL (6.5-8.0)
== END 2023-09-25 06:46 | disposition home or self-care (01) ==
LOC: HO.HSH2S 06:45
PROVIDERS: Visit Provider Nurse Practitioner Acute Care
DX: U07.1 COVID-19 (principal)
CPT/HCPCS: 36415; 80053; 85025

== ENCOUNTER 2023-09-28 06:31 | Outpatient (REF) | payer MEDICARE, SELFPAY ==
[2023-09-28 06:35] LABS: MANUAL DIFF FLAG NO
[2023-09-28 07:21] LABS: Basophils Percent Auto 0.7 % (0-2); Eosinophils Absolute Auto 0.3 X10*3/uL (0.0-0.4); Eosinophils Percent Auto 6.5 % (0-4); Hemoglobin 11.3 g/dl (14.0-18.0); Imm Gran Abs Auto 0.03 X10*3/uL (0.00-0.03); Imm Gran Pct Auto 0.7 % (0.0-0.4); Lymphocytes Absolute Auto 1.8 X10*3/uL (1.2-4.9); Lymphocytes Percent Auto 39.4 % (20-40); Mean Corpuscular HGB Conc 32.3 g/dl (31.0-36.0); Mean Corpuscular Hemoglobin 27.8 pg (27.0-33.0); Mean Platelet Volume 9.1 fL (9.4-12.4); Monocytes Absolute Auto 0.5 X10*3/uL (0.1-1.2); Monocytes Percent Auto 10.1 % (2-11); Neutrophils Absolute Auto 1.9 x10*3/uL (2.0-8.3); Neutrophils Percent Auto 42.6 % (45-73); Platelet Count 214 X10*3/uL (160-400); Red Blood Count 4.07 X10*6/uL (4.60-5.80); Red Cell Distribution Width 17.1 % (11.0-16.0); White Blood Count 4.4 X10*3/uL (4.8-10.8)
[2023-09-28 07:46] LABS: Alanine Aminotransferase 14 U/L (0-40); Albumin Level 3.6 g/dL (3.5-5.0); Alkaline Phosphatase 61 U/L (39-117); Anion Gap 17 (12-20); Aspartate Amino Transferase 17 U/L (5-37); Bilirubin Total 0.5 mg/dL (0.0-1.0); Blood Urea Nitrogen 26 mg/dL (9-16); Calcium 8.8 mg/dL (8.4-10.2); Carbon Dioxide 21 mmol/L (22-29); Chloride 104 mmol/L (96-108); Estimated Glomerular Filt Rate 53; Glucose Random 130 mg/dL (60-115); Sodium 138 mmol/L (135-145); Total Protein 6.5 g/dL (6.5-8.0)
== END 2023-09-28 06:32 | disposition home or self-care (01) ==
LOC: HO.HSH3N 06:31
PROVIDERS: Visit Provider Nurse Practitioner
DX: U07.1 COVID-19 (principal)
CPT/HCPCS: 36415; 80053; 85025

== ENCOUNTER 2023-10-01 07:53 | Outpatient (REF) | payer MEDICARE, SELFPAY ==
[2023-10-01 07:57] LABS: MANUAL DIFF FLAG NO
[2023-10-01 08:32] LABS: Basophils Absolute Auto 0.1 X10*3/uL (0.0-0.2); Eosinophils Absolute Auto 0.2 X10*3/uL (0.0-0.4); Eosinophils Percent Auto 4.4 % (0-4); Hematocrit 35.6 % (42.0-52.0); Hemoglobin 11.5 g/dl (14.0-18.0); Imm Gran Abs Auto 0.08 X10*3/uL (0.00-0.03); Imm Gran Pct Auto 1.5 % (0.0-0.4); Lymphocytes Absolute Auto 1.7 X10*3/uL (1.2-4.9); Mean Corpuscular HGB Conc 32.3 g/dl (31.0-36.0); Mean Corpuscular Hemoglobin 27.6 pg (27.0-33.0); Mean Corpuscular Volume 85.6 fL (80.0-98.0); Mean Platelet Volume 9.2 fL (9.4-12.4); Monocytes Absolute Auto 0.4 X10*3/uL (0.1-1.2); Monocytes Percent Auto 7.9 % (2-11); Neutrophils Absolute Auto 2.7 x10*3/uL (2.0-8.3); Neutrophils Percent Auto 52.2 % (45-73); Platelet Count 230 X10*3/uL (160-400); Red Blood Count 4.16 X10*6/uL (4.60-5.80); Red Cell Distribution Width 16.1 % (11.0-16.0); White Blood Count 5.2 X10*3/uL (4.8-10.8)
[2023-10-01 08:47] LABS: Alanine Aminotransferase 19 U/L (0-40); Albumin Level 3.5 g/dL (3.5-5.0); Alkaline Phosphatase 56 U/L (39-117); Anion Gap 12 (12-20); Aspartate Amino Transferase 17 U/L (5-37); Bilirubin Total 0.3 mg/dL (0.0-1.0); Blood Urea Nitrogen 22 mg/dL (9-16); Carbon Dioxide 24 mmol/L (22-29); Chloride 107 mmol/L (96-108); Estimated Glomerular Filt Rate 57; Glucose Random 133 mg/dL (60-115); Potassium 4.2 mmol/L (3.3-5.1); Sodium 139 mmol/L (135-145); Total Protein 6.4 g/dL (6.5-8.0)
== END 2023-10-01 07:54 | disposition home or self-care (01) ==
LOC: HO.HSH3N 07:53
PROVIDERS: Visit Provider Nurse Practitioner
DX: U07.1 COVID-19 (principal)
CPT/HCPCS: 36415; 80053; 85025

== ENCOUNTER 2023-11-12 07:07 | Outpatient (REF) | payer MEDICARE, SELFPAY ==
[2023-11-12 08:16] LABS: Thyroid Stimulating Hormone 3.88 uIU/mL (0.32-4.0)
== END 2023-11-12 07:08 | disposition home or self-care (01) ==
LOC: HO.HSH3N 07:07
PROVIDERS: Visit Provider Nurse Practitioner Acute Care
DX: E03.9 Hypothyroidism, unspecified (principal)
CPT/HCPCS: 36415; 84443

== ENCOUNTER 2023-11-26 08:33 | Outpatient (REF) | payer MEDICARE, SELFPAY ==
[2023-11-26 09:10] LABS: Estimated Average Glucose 146 mg/dL; Hemoglobin A1c % 6.7 % (<6.0)
== END 2023-11-26 08:34 | disposition home or self-care (01) ==
LOC: HO.HSH3N 08:33
PROVIDERS: Visit Provider Nurse Practitioner
DX: E11.9 Type 2 diabetes mellitus without complications (principal)
CPT/HCPCS: 36415; 83036

== ENCOUNTER 2024-03-21 09:10 | Emergency (ER) | payer MEDICARE, SELFPAY ==
[2024-03-21 09:13] VITALS: BP 132/72; BP 165/66; PULSE 62; PULSE 81; RESP 16; TEMP 37; O2SAT 97; O2SAT 98; BMI 24.7
--- NOTE | 2024-03-21 09:13 | ECG_ITS ---
Test Reason : cp Blood Pressure : / mmHG Vent. Rate : 056 BPM Atrial Rate : 056 BPM P-R Int : 186 ms QRS Dur : 082 ms QT Int : 434 ms P-R-T Axes : 092 -13 057 degrees QTc Int : 418 ms Sinus bradycardia with sinus arrhythmia Otherwise normal ECG When compared with ECG of 21-APR-2023 01:26, Sinus rhythm has replaced Atrial fibrillation Referred By: Generic ED Physician Electronically Signed By:João Norton
--- NOTE | 2024-03-21 09:38 | ED_ITS ---
HPI - Chest Pain General Chief Complaint: Chest Pain Stated Complaint: CHEST PRESSURE,WEAKNESS PER EMS Time Seen by Provider: 03/21/24 09:23 Source: patient, family (Son, Bryn) and EMS Mode of arrival: EMS Limitations: no limitations History of Present Illness ED Provider: Dr. Klever Alfaro HPI narrative: 88-year-old male with a history of diabetes mellitus, hypertension, hyperlipidemia, GERD, hyperthyroidism, bradycardia who presents emergency department for evaluation of chest pain. Information came from EMS since the patient has no recollection of his chest pain. The patient was a residents of the [facility] in [place]. At 07:00 hours this morning the patient complained of chest pain. EMS reported that the patient was diaphoretic and the staff was concerned had the patient transported to the emergency department by ambulance. The patient's son is here in the emergency department with the patient. He states that yesterday the patient complained of fatigue but was not ill in any other way. Related Data Home Medications ?Medication ?Instructions ?Recorded ?Confirmed donepezil 10 mg tablet 10 mg PO DAILY 08/12/21 04/21/23 acetaminophen 325 mg tablet 650 mg PO Q4H PRN Fever Or Pain 04/21/23 04/21/23 aluminum-mag hydroxide-simethicone 10 ml PO TID PRN Gastric Reflux 04/21/23 04/21/23 200 mg-200 mg-20 mg/5 mL oral susp bisacodyl 10 mg rectal suppository 10 mg LA DAILY PRN Constipation 04/21/23 04/21/23 calcium carbonate 500 mg PO Q30M PRN GERD 04/21/23 04/21/23 cholecalciferol (vitamin D3) 25 25 mcg PO BID 04/21/23 04/21/23 mcg (1,000 unit) tablet (Vitamin D3) citalopram 10 mg/5 mL oral solution 5 mg PO DAILY 04/21/23 04/21/23 cyanocobalamin (vitamin B-12) 500 500 mcg PO Q OTHER DAY 04/21/23 04/21/23 mcg tablet guaifenesin 100 mg/5 mL oral liquid 200 mg PO QID PRN Cough 04/21/23 04/21/23 lactulose 10 gram/15 mL oral 10 g PO DAILY PRN Constipation 04/21/23 04/21/23 solution mirtazapine 7.5 mg tablet 7.5 mg PO BEDTIME 04/21/23 04/21/23 nystatin 100,000 unit/mL oral 400,000 unit PO QID 04/21/23 04/21/23 suspension omeprazole 20 mg tablet,delayed 20 mg PO DAILY 04/21/23 04/21/23 release polyethylene glycol 3350 17 17 g PO DAILY 04/21/23 04/21/23 gram/dose oral powder sennosides 8.6 mg tablet (senna) 8.6 mg PO DAILY@1700 04/21/23 04/21/23 sodium phosphates 19 gram-7 118 ml LA DAILY PRN constipaiton 04/21/23 04/21/23 gram/118 mL enema (Fleet Enema) Previous Rx's ?Medication ?Instructions ?Recorded blood sugar diagnostic #100 ea 04/25/21 blood sugar diagnostic #100 ea 06/06/21 blood-glucose meter ([employer] #1 ea 06/06/21 Ultra2 Meter kit) lisinopril 10 mg tablet 10 mg PO DAILY #90 tabs 06/16/22 lancets 33 gauge (DyMyndTouch Delica #100 ea 09/04/22 Lancets) blood sugar diagnostic (OneTouch #100 strips 09/21/22 Ultra Test strips) lancets 30 gauge (OneTouch Delica #100 ea 12/29/22 Plus Lancet) hydrochlorothiazide 12.5 mg tablet 12.5 mg PO DAILY 90 days #90 tabs 01/14/23 Allergies Allergy/AdvReac Type Severity Reaction Status Date / Time No Known Allergies Allergy Verified 03/21/24 09:18 [No Known Allergies*] [facility] Past Medical History [facility] Narrative: Social history: The patient is a resident of the [facility] Medical History TSH elevation Type 2 diabetes mellitus with hyperglycemia GERD (gastroesophageal reflux disease) Hypercholesterolemia Hypertension Surgical History History of inguinal hernia repair History of right hip replacement Family History Family History (Updated 12/29/22 @ 08:22 by Ofelia Ayala CMA) Father No problems noted. Mother No problems noted. Social History Social History (Reviewed 10/26/23 @ 19:25 by ELLIOT Vila Housing: House Unable to assess alcohol history related to: Unknown Alcohol intake: current Alcohol intake frequency: holidays/special occasions only Alcohol type: beer Patient Tobacco Use Status: Former Tobacco user Tobacco use type: Cigarette Years Smoked: stopped 1999 e-Cigarette/Vaping Use: Never Used Second Hand Smoke Exposure: No Advance Directives: Yes Advance Directives on File: Yes Advance Directives Date on File: 08/21/22 service: Yes Current occupational status: retired Cognitive needs: No Hearing needs: No Vision needs: Yes Physical Exam 2 Vital Signs: Vital Signs: Last Vital Signs Temp 97.5 F 03/21/24 09:49 Pulse 55 03/21/24 09:49 Resp 18 03/21/24 09:49 BP 129/51 L 03/21/24 09:49 Pulse Ox 98 03/21/24 09:49 O2 Del Method Room Air 03/21/24 09:49 BMI result Body Mass Index 24.7 Vital signs revealed bradycardia Exam: General: Awake, alert in no distress Head: Normocephalic, atraumatic EENT: PERRL, Lids normal, sclera normal, conjunctiva normal, nose normal , ears normal, throat without erythema or exudates Neck: Supple, no adenopathy Lung: breath sounds symmetric, no wheezing, rales or rhonchi Chest: symmetric movement, nontender Heart: Bradycardia, regular rhythm, normal S1, S2 no murmurs or rubs Abdomen: soft, non-tender, nondistended, normal bowel sounds Back: no vertebral tenderness, no CVAT Extremities: no deformities, moves all extremities symmetrically Neuro: Awake, alert, oriented, normal speech, cranial nerves intact, moves all extremities symmetrically Psych: Pleasant, cooperative Medical Decision Making Medical Decision Making MDM Narrative: 88-year-old male with a history of diabetes mellitus, hypertension, hyperlipidemia, GERD, hyperthyroidism, bradycardia who presents emergency department for evaluation of chest pain began at 07:00 hours and was associated with diaphoresis. The patient has no memory of the chest pain and has no complaints in the emergency department. [facility] [place] and staff was concerned and sent the patient to the ED by ambulance. Vital signs did reveal bradycardia which is a known condition for the patient otherwise unremarkable. Physical examination was unremarkable except for his bradycardia. Differential diagnosis: ?Includes but is not limited to myocardial infarction, myocardial ischemia, musculoskeletal pain, gastritis, anemia, electrolyte abnormalities Course: 14:13 The patient had no symptoms on presentation in the emergency department and remained while he was in the ED. Patient was on a cardiac and O2 saturation monitor and the patient did have bradycardia which never dropped below 50. The patient was laboratory evaluation was unremarkable. He had a times 0 troponin and a 3 hour troponin which were below detectable limits which is reassuring suggesting that you did not have myocardial infarction or myocardial injury as the cause of his chest pain. I did discuss this with the patient and the patient's son. The patient's son does feel comfortable [facility]. Therefore the patient was discharged in the care of his son. Admission/Observation Consideration of admission/observation: Escalation of care including admission/observation considered (Yes) Lab Data MDM Lab Attestation statement: I reviewed the patient's lab results. 14:15 hours: My independent interpretation patient's laboratory evaluation as follows: Chronic normocytic anemia with an H&H of 12.0 and 36.1. PTT was normal. Urinary creatinine were elevated 29 and 1.52. Potassium was normal at 3.9. Time 0 troponin was below detectable limits and 3 hour troponin was below detectable limits. TSH 03/21/24 09:48 03/21/24 09:48 Labs: Lab Results 03/21/24 03/21/24 Range/Units 09:48 13:30 WBC 6.6 (4.8-10.8) X10*3/uL RBC 4.06 L (4.60-5.80) X10*6/uL Hgb 12.0 L (14.0-18.0) g/dl Hct 36.1 L (42.0-52.0) % MCV 88.9 (80.0-98.0) fL MCH 29.6 (27.0-33.0) pg MCHC 33.2 (31.0-36.0) g/dl RDW 13.1 (11.0-16.0) % Plt Count 192 (160-400) X10*3/uL MPV 8.9 L (9.4-12.4) fL Immature Gran % (Auto) 0.9 H (0.0-0.4) % Neut % (Auto) 66.5 (45-73) % Lymph % (Auto) 18.6 L (20-40) % [place] % (Auto) 9.8 (2-11) % Eos % (Auto) 3.4 (0-4) % Baso % (Auto) 0.8 (0-2) % Lymph # (Auto) 1.2 (1.2-4.9) X10*3/uL [place] # (Auto) 0.6 (0.1-1.2) X10*3/uL Eos # (Auto) 0.2 (0.0-0.4) X10*3/uL Baso # (Auto) 0.1 (0.0-0.2) X10*3/uL Abs Immat Gran (auto) 0.06 H (0.00-0.03) X10*3/uL Absolute Neuts (auto) 4.4 (2.0-8.3) x10*3/uL Absolute Nucleated RBC 0.000 (0.0-0.012) X10*3/uL Nucleated RBC % (auto) 0.0 (0.0-0.2) /100WBC APTT 27.8 (26.0-36.8) SEC Sodium 138 (135-145) mmol/L Potassium 3.9 (3.3-5.1) mmol/L Chloride 106 (96-108) mmol/L Carbon Dioxide 24 (22-29) mmol/L Anion Gap 12 (12-20) BUN 29 H (9-16) mg/dL Creatinine 1.52 H (0.5-1.4) mg/dL Estim Creat Clear Calc 30.3 Estimated GFR 43 Random Glucose 202 H (60-115) mg/dL Calcium 9.2 (8.4-10.2) mg/dL Magnesium 2.0 (1.6-2.6) mg/dL Total Bilirubin 0.6 (0.0-1.0) mg/dL AST 14 (5-37) U/L ALT 9 (0-40) U/L Alkaline Phosphatase 73 (39-117) U/L Troponin I High Sens < 2.7 D < 2.7 (<3.5-35.0) ng/L B-Natriuretic Peptide 30 (<100) pg/mL Total Protein 6.9 (6.5-8.0) g/dL Albumin 3.6 (3.5-5.0) g/dL Lipase 13 (8-78) U/L TSH 3.00 (0.32-4.0) uIU/mL Independent Interpretation I performed an independent interpretation of an: EKG Interpretation: My independent interpretation of the patient's 12 EKG done at 09:15 hours is as follows: Sinus bradycardia with a rate of 56, normal LA interval, QRS duration QTC interval, no ST segment elevation, no ST segment depression, no significant T-wave abnormalities. Except for the bradycardia this is a normal EKG Radiology Impression Discussion of test interpretation with radiology: I have reviewed the radiologist's reading. Radiologist Impression: XR chest 1V IMPRESSION: Scarring at the lung bases. No acute disease. Dictated By: Jermain Tobin Independent Historian Clinical information obtained from an independent historian. History obtained from or confirmed by: Other (Son) Chronic Conditions Patient?s care impacted by: Diabetes and Hypertension Discharge Plan Discharge Clinical Impression: Chest pain Patient Disposition: Xfer Other Transfer Details[facility] Instructions: Chest Pain (ED) Additional Instructions: Your blood work was normal. We did a high sensitive troponin (marker of heart damage/heart attack) when you initially arrived here in the emergency department and this was below detectable limits. Repeated this test 3 hours later and it was still below detectable limits. This is very reassuring and suggests that you did not have a heart attack or heart damage as the cause of your pain. Your EKG was unremarkable except for a slow heart rate (bradycardia) which you have had in the past. Your chest x-ray was unremarkable. Continue taking medications as prescribed by your providers. Please return to the emergency department if you get further episodes of chest pain that last more than 15 minutes, that are associated with neck pain, jaw pain arm pain, lightheadedness, dizziness, sweatiness . Insert discharge follow-up Prescriptions: No Action (DME) OneTouch Ultra Blue Test Strip Strip See Rx Instructions .ROUTE .MEDSUPPLY Qty: 100 3RF Rx Instructions: As directed check blood sugars once a day (DME) blood-glucose meter [OneTouch Ultra2 Meter] Kit See Rx Instructions .ROUTE .MEDSUPPLY Qty: 1 0RF Rx Instructions: As directed check the blood sugar once a day (DME) blood sugar diagnostic Strip See Rx Instructions .ROUTE .MEDSUPPLY Qty: 100 3RF Rx Instructions: As directed check the blood sugar once a day lisinopril 10 mg tablet 10 mg PO DAILY Qty: 90 3RF (DME) lancets [OneTouch Delica Lancets] 33 gauge misc See Rx Instructions .ROUTE .MEDSUPPLY Qty: 100 3RF Rx Instructions: As directed check the blood sugar q.day (DME) OneTouch Ultra Test Strip See Rx Instructions .ROUTE .COMPLEX Qty: 100 3RF Dose Instruction: DIRECTED CHECK THE BLOOD SUGAR ONCE A DAY Rx Instructions: DIRECTED CHECK THE BLOOD SUGAR ONCE A DAY hydrochlorothiazide 12.5 mg tablet 12.5 mg PO DAILY 90 Days Qty: 90 3RF sennosides [senna] 8.6 mg Tablet 8.6 mg PO DAILY@1700 nystatin 100,000 unit/mL Suspension 400,000 unit PO QID Rx Instructions: administer 1/2 of dose in each side of the mouth x7 days cyanocobalamin (vitamin B-12) 500 mcg Tablet 500 mcg PO Q OTHER DAY polyethylene glycol 3350 17 gram/dose Powder 17 g PO DAILY cholecalciferol (vitamin D3) [Vitamin D3] 25 mcg (1,000 unit) Tablet 25 mcg PO BID acetaminophen 325 mg Tablet 650 mg PO Q4H PRN (Reason: Fever Or Pain) guaifenesin 100 mg/5 mL Liquid 200 mg PO QID PRN (Reason: Cough) bisacodyl 10 mg Suppository 10 mg LA DAILY PRN (Reason: Constipation) Fleet Enema 19-7 gram/118 mL Enema 118 ml LA DAILY PRN (Reason: constipaiton) calcium carbonate 500 mg calcium (1,250 mg) Tablet,Chewable 500 mg PO Q30M MDD 8 tablets PRN (Reason: GERD) alum-mag hydroxide-simeth [Mylanta] 200-200-20 mg/5 mL Suspension 10 ml PO TID PRN (Reason: Gastric Reflux) Rx Instructions: administer between meals and at bedtime lactulose 10 gram/15 mL Solution 10 g PO DAILY PRN (Reason: Constipation) omeprazole 20 mg Tablet,Delayed Release (Dr/Ec) 20 mg PO DAILY citalopram 10 mg/5 mL Solution 5 mg PO DAILY mirtazapine 7.5 mg Tablet 7.5 mg PO BEDTIME donepezil 10 mg tablet 10 mg PO DAILY (DME) lancets [OneTouch Delica Plus Lancet] 30 gauge misc See Rx Instructions .Route Qty: 100 3RF Rx Instructions: As directed check the BS QD Print Language: Vincentian
[2024-03-21 09:49] VITALS: BP 129/51; PULSE 55; RESP 18; TEMP 36.4; O2SAT 98
[2024-03-21 09:53] LABS: MANUAL DIFF FLAG NO
[2024-03-21 09:55] LABS: Basophils Absolute Auto 0.1 X10*3/uL (0.0-0.2); Basophils Percent Auto 0.8 % (0-2); Eosinophils Absolute Auto 0.2 X10*3/uL (0.0-0.4); Eosinophils Percent Auto 3.4 % (0-4); Hematocrit 36.1 % (42.0-52.0); Imm Gran Abs Auto 0.06 X10*3/uL (0.00-0.03); Imm Gran Pct Auto 0.9 % (0.0-0.4); Lymphocytes Absolute Auto 1.2 X10*3/uL (1.2-4.9); Lymphocytes Percent Auto 18.6 % (20-40); Mean Corpuscular HGB Conc 33.2 g/dl (31.0-36.0); Mean Corpuscular Hemoglobin 29.6 pg (27.0-33.0); Mean Corpuscular Volume 88.9 fL (80.0-98.0); Mean Platelet Volume 8.9 fL (9.4-12.4); Monocytes Absolute Auto 0.6 X10*3/uL (0.1-1.2); Monocytes Percent Auto 9.8 % (2-11); Neutrophils Absolute Auto 4.4 x10*3/uL (2.0-8.3); Neutrophils Percent Auto 66.5 % (45-73); Platelet Count 192 X10*3/uL (160-400); Red Blood Count 4.06 X10*6/uL (4.60-5.80); Red Cell Distribution Width 13.1 % (11.0-16.0); White Blood Count 6.6 X10*3/uL (4.8-10.8)
[2024-03-21 10:06] LABS: Partial Thromboplastin Time 27.8 SEC (26.0-36.8)
[2024-03-21 10:15] LABS: B Type Natriuretic Peptide 30 pg/mL (<100)
[2024-03-21 10:21] LABS: Alanine Aminotransferase 9 U/L (0-40); Albumin Level 3.6 g/dL (3.5-5.0); Alkaline Phosphatase 73 U/L (39-117); Anion Gap 12 (12-20); Aspartate Amino Transferase 14 U/L (5-37); Bilirubin Total 0.6 mg/dL (0.0-1.0); Blood Urea Nitrogen 29 mg/dL (9-16); Calcium 9.2 mg/dL (8.4-10.2); Carbon Dioxide 24 mmol/L (22-29); Chloride 106 mmol/L (96-108); Creatinine Clr Calc Pharmacy 30.3; Estimated Glomerular Filt Rate 43; Glucose Random 202 mg/dL (60-115); Lipase 13 U/L (8-78); Potassium 3.9 mmol/L (3.3-5.1); Sodium 138 mmol/L (135-145); Total Protein 6.9 g/dL (6.5-8.0)
[2024-03-21 10:23] LABS: Troponin-I High Sensitivity < 2.7 ng/L (<3.5-35.0)
[2024-03-21 14:00] LABS: Troponin-I High Sensitivity < 2.7 ng/L (<3.5-35.0)
[2024-03-21 14:49] VITALS: BP 162/51; PULSE 61; RESP 18; TEMP 36.8; O2SAT 96
--- OUTSIDE RECORDS SUMMARY | 2024-03-26 07:00 | XMS_ITS | Clinical Summary ---
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 09-02 00:00: 00 ESSENTIAL (PRIMARY) HYPERTENSION Active 04-16 00:00: 00 PURE HYPERCHOLEST EROLEMIA, UNSPECIFIED Active 04-16 00:00: 00 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 Ordering Clinician Indication Dosage Frequency Signature (SIG) Comments Components esomeprazol e magnesium 40 mg capsule,del ayed release 08-08 00:00: 00 Yes [id number] GERD Per instruc tions EVERY DAY Per instructio ns EVERY DAY (route: oral) Med Classific ation: Gastroint estinal Therapy Agents hydrochloro thiazide 12.5 mg tablet 08-01 00:00: 00 Yes [id number] HTN Per instruc tions ONCE A DAY FOR 90 DAYS Per instructio ns ONCE A DAY FOR 90 DAYS (route: oral) Med Classific ation: Cardiovas cular Therapy Agents aspirin 81 mg tablet,barbara yed release 09-02 00:00: 00 Yes [id number] HEART HEALTH 1 tablet DAILY 1 tablet DAILY (route: oral) Med Classific ation: Hematolog ical Agents atorvastati n 20 mg tablet 09-02 00:00: 00 Yes [id number] CHOL 1 tablet DAILY 1 tablet DAILY (route: oral) Med Classific ation: Cardiovas cular Therapy Agents donepezil 10 mg tablet 09-02 00:00: 00 Yes [id number] MEMORY IMPAIRMENT 1 tablet DAILY 1 tablet DAILY (route: oral) Med Classific ation: Cognitive Disorder Therapy lisinopril 10 mg tablet 09-02 00:00: 00 Yes [id number] HTN 1 tablet DAILY 1 tablet DAILY (route: oral) Med Classific ation: Cardiovas cular Therapy Agents metformin ER 750 mg tablet,exte nded release 24 hr 09-02 00:00: 00 Yes [id number] DM 1 tablet DAILY 1 tablet DAILY (route: oral) Med Classific ation: Endocrine Vitamin B-12 1,000 mcg tablet 09-02 00:00: 00 Yes [id number] SUPPLEMENT 1 tablet EVERY OTHER DAY 1 tablet EVERY OTHER DAY (route: oral) Med Classific ation: Electroly te Balance-N utritiona l Products Vital Signs Vital Name Observation Time Observation Value Commen ts Temperature 2022-10-27 11:07:00.000 97.1 [degF] Temperature 2022-10-13 09:16:00.000 97.3 [degF] Temperature 2022-09-26 08:42:00.000 97.5 [degF] Temperature 2022-09-21 09:00:00.000 97.4 [degF] Temperature 2022-09-14 10:39:00.000 97.4 [degF] Temperature 2022-09-07 11:56:00.000 97.3 [degF] Temperature 2022-09-02 11:29:00.000 97.6 [degF] BMI (%) 2022-09-02 11:29:00.000 22 kg/m2 Height 2022-09-02 11:29:00.000 66 [in_us] Pulse 2022-10-27 11:07:00.000 68 /min Pulse 2022-10-13 09:16:00.000 60 /min Pulse 2022-09-26 08:42:00.000 62 /min Pulse 2022-09-21 09:00:00.000 62 /min Pulse 2022-09-14 10:39:00.000 56 /min Pulse 2022-09-07 11:56:00.000 54 /min Pulse 2022-09-02 11:29:00.000 54 /min O2 Saturation (%) 2022-10-27 11:07:00.000 98 % O2 Saturation (%) 2022-10-13 09:16:00.000 95 % O2 Saturation (%) 2022-09-26 08:42:00.000 97 % O2 Saturation (%) 2022-09-21 09:00:00.000 99 % O2 Saturation (%) 2022-09-14 10:39:00.000 99 % O2 Saturation (%) 2022-09-07 11:56:00.000 99 % Respirations 2022-10-27 11:07:00.000 18 /min Respirations 2022-10-13 09:16:00.000 18 /min Respirations 2022-09-26 08:42:00.000 18 /min Respirations 2022-09-21 09:00:00.000 18 /min Respirations 2022-09-14 10:39:00.000 18 /min Respirations 2022-09-07 11:56:00.000 18 /min Respirations 2022-09-02 11:29:00.000 18 /min Weight (lbs) 2022-09-02 11:29:00.000 142 [lb_av] Systolic Blood Pressure 2022-10-27 11:07:00.000 116 mm [Hg] Systolic Blood Pressure 2022-10-13 09:16:00.000 120 mm [Hg] Systolic Blood Pressure 2022-09-26 08:42:00.000 126 mm [Hg] Systolic Blood Pressure 2022-09-21 09:00:00.000 122 mm [Hg] Systolic Blood Pressure 2022-09-14 10:39:00.000 118 mm [Hg] Systolic Blood Pressure 2022-09-07 11:56:00.000 126 mm [Hg] Systolic Blood Pressure 2022-09-02 11:29:00.000 122 mm [Hg] Diastolic Blood Pressure 2022-10-27 11:07:00.000 68 mm [Hg] Diastolic Blood Pressure 2022-10-13 09:16:00.000 60 mm [Hg] Diastolic Blood Pressure 2022-09-26 08:42:00.000 68 mm [Hg] Diastolic Blood Pressure 2022-09-21 09:00:00.000 68 mm [Hg] Diastolic Blood Pressure 2022-09-14 10:39:00.000 72 mm [Hg] Diastolic Blood Pressure 2022-09-07 11:56:00.000 72 mm [Hg] Diastolic Blood Pressure 2022-09-02 11:29:00.000 64 mm [Hg] Plan of Treatment Planned Activity Planned Date Details Comments Future Scheduled Test MEDICATION MANAGEMENT; SKILLED NURSE TO REVIEW MEDICATIONS FOR INTERACTIONS, EFFECTIVENESS OF DRUG THERAPY, AND SIGNS/SYMPTOMS OF ADVERSE REACTIONS. MAY INSTRUCT AND REINFORCE MEDICATION TEACHING RELATED TO THE USE OF MEDICATIONS, DOSAGE, FREQUENCY, PURPOSE, SIDE EFFECTS, AND TO REPORT COMPLICATIONS. [code = MEDICATION MANAGEMENT; SKILLED NURSE TO REVIEW MEDICATIONS FOR INTERACTIONS, EFFECTIVENESS OF DRUG THERAPY, AND SIGNS/SYMPTOMS OF ADVERSE REACTIONS. MAY INSTRUCT AND REINFORCE MEDICATION TEACHING RELATED TO THE USE OF MEDICATIONS, DOSAGE, FREQUENCY, PURPOSE, SIDE EFFECTS, AND TO REPORT COMPLICATIONS.] Future Scheduled Test FALL REDUC TION MANAGEMENT; NURSING TO PROVIDE SKILLED ASSESSMENT, EDUCATION, AND INTERVENTION TO IDENTIFY FALL RISK FACTORS SUCH MEDICATIONS THAT MAY CAUSE DIZZINESS, CHRONIC DISEASES, PSYCHOLOGICAL FACTORS, AND EMPOWER/EDUCATE PATIENT/CAREGIVER TO MINIMIZE FALL RISK. [code = FALL REDUCTION MANAGEMENT; NURSING TO PROVIDE SKILLED ASSESSMENT, EDUCATION, AND INTERVENTION TO IDENTIFY FALL RISK FACTORS SUCH MEDICATIONS THAT MAY CAUSE DIZZINESS, CHRONIC DISEASES, PSYCHOLOGICAL FACTORS, AND EMPOWER/EDUCATE PATIENT/CAREGIVER TO MINIMIZE FALL RISK.] Future Scheduled Test DIABETES M ANAGEMENT; SKILLED NURSE FOR INSTRUCTIONS OF DIABETIC CARE TO INCLUDE: DIET DIABETIC SKIN CARE, SIGNS AND SYMPTOMS OF HYPO/HYPERGLYCEMIA, PROPER ADMINISTRATION OF DIABETIC MEDICATION. SKILLED NURSE TO INSTRUCT ON DIABETIC FOOT CARE AND MONITOR FOR SKIN LESIONS ON LOWER EXTREMITIES. BLOOD GLUCOSE TESTING FREQ. SKILLED NURSE TO ASSESS PATIENT/CAREGIVER ABILITY TO PERFORM AND RECORD BLOOD GLUCOSE TESTING ORDERED AND TO REPORT ABNORMAL FINDINGS TO PHYSICIAN. SKILLED NURSE MAY PERFORM BLOOD GLUCOSE TEST NEEDED. SKILLED NURSE TO REPORT TO PHYSICIAN BLOOD GLUCOSE READINGS GREATER THAN 350 OR LESS THAN 70 SKILLED NURSE TO INSTRUCT PATIENT ON IMPORTANCE OF HGBA1C MONITORING, KIDNEY FUNCTION TEST, EYE AND FOOT EXAMS. [code = DIABETES MANAGEMENT; SKILLED NURSE FOR INSTRUCTIONS OF DIABETIC CARE TO INCLUDE: DIET DIABETIC SKIN CARE, SIGNS AND SYMPTOMS OF HYPO/HYPERGLYCEMIA, PROPER ADMINISTRATION OF DIABETIC MEDICATION. SKILLED NURSE TO INSTRUCT ON DIABETIC FOOT CARE AND MONITOR FOR SKIN LESIONS ON LOWER EXTREMITIES. BLOOD GLUCOSE TESTING FREQ. SKILLED NURSE TO ASSESS PATIENT/CAREGIVER ABILITY TO PERFORM AND RECORD BLOOD GLUCOSE TESTING ORDERED AND TO REPORT ABNORMAL FINDINGS TO PHYSICIAN. SKILLED NURSE MAY PERFORM BLOOD GLUCOSE TEST NEEDED. SKILLED NURSE TO REPORT TO PHYSICIAN BLOOD GLUCOSE READINGS GREATER THAN 350 OR LESS THAN 70 SKILLED NURSE TO INSTRUCT PATIENT ON IMPORTANCE OF HGBA1C MONITORING, KIDNEY FUNCTION TEST, EYE AND FOOT EXAMS.] Future Scheduled Test NEUROLOGIC AL SYSTEM MANAGEMENT; SKILLED NURSE TO OBSERVE, ASSESS AND TEACH RELATED TO ALTERED NEUROLOGICAL STATUS TO MINIMIZE COMPLICATIONS AND REDUCE HOSPITALIZATION. [code = NEUROLOGICAL SYSTEM MANAGEMENT; SKILLED NURSE TO OBSERVE, ASSESS AND TEACH RELATED TO ALTERED NEUROLOGICAL STATUS TO MINIMIZE COMPLICATIONS AND REDUCE HOSPITALIZATION. ] Future Scheduled Test SKILLED NU RSE TO ASSESS, EVALUATE, AND DEVELOP AN INDIVIDUALIZED PLAN OF CARE. AGENCY MAY ACCEPT ORDERS FROM CONSULTING PHYSICIANS SN TO OBSERVE/ASSESS RISK FOR FALLS AND INSTRUCT IN FALL PREVENTION, HOME SAFETY, MEDICATION MANAGEMENT, INFECTION PREVENTION, AND NUTRITION MANAGEMENT. SN MAY PERFORM O2 SATURATION LEVEL ON ADMISSION AND PRN FOR RESP STATUS CHANGES TO ASSESS PATIENT, WITH NOTIFICATION TO THE PHYSICIAN IF SATURATION IS 90% IN THE ABSENCE OF MORE SPECIFIC PARAMETERS FROM THE PHYSICIAN. AGENCY MAY PERFORM A RESUMPTION OF CARE VISIT FOLLOWING ANY HOSPITAL ADMISSION. SKILLED NURSE TO ASSESS/EVALUATE CO-MORBID CONDITIONS AND ANY NEW CONDITIONS THAT PRESENT THEMSELVES DURING THIS EPISODE TO IDENTIFY CHANGES AND INTERVENE TO MINIMIZE COMPLICATIONS. [code = SKILLED NURSE TO ASSESS, EVALUATE, AND DEVELOP AN INDIVIDUALIZED PLAN OF CARE. AGENCY MAY ACCEPT ORDERS FROM CONSULTING PHYSICIANS SN TO OBSERVE/ASSESS RISK FOR FALLS AND INSTRUCT IN FALL PREVENTION, HOME SAFETY, MEDICATION MANAGEMENT, INFECTION PREVENTION, AND NUTRITION MANAGEMENT. SN MAY PERFORM O2 SATURATION LEVEL ON ADMISSION AND PRN FOR RESP STATUS CHANGES TO ASSESS PATIENT, WITH NOTIFICATION TO THE PHYSICIAN IF SATURATION IS 90% IN THE ABSENCE OF MORE SPECIFIC PARAMETERS FROM THE PHYSICIAN. AGENCY MAY PERFORM A RESUMPTION OF CARE VISIT FOLLOWING ANY HOSPITAL ADMISSION. SKILLED NURSE TO ASSESS/EVALUATE CO-MORBID CONDITIONS AND ANY NEW CONDITIONS THAT PRESENT THEMSELVES DURING THIS EPISODE TO IDENTIFY CHANGES AND INTERVENE TO MINIMIZE COMPLICATIONS.] Future Scheduled Test PAIN MANAG EMENT; SKILLED NURSE TO OBSERVE, ASSESS, AND PROVIDE EDUCATION ON PAIN MANAGEMENT TECHNIQUES. [code = PAIN MANAGEMENT; SKILLED NURSE TO OBSERVE, ASSESS, AND PROVIDE EDUCATION ON PAIN MANAGEMENT TECHNIQUES.] Future Scheduled Test RISK FOR H OSPITALIZATION; SKILLED NURSE TO INSTRUCT PATIENT/CAREGIVER ON RISK FOR HOSPITALIZATION/EMERGENCY ROOM VISITS, TEACH SIGNS AND SYMPTOMS THAT PUT PATIENT AT RISK, WHEN TO NOTIFY NURSE/PHYSICIAN OF COMPLICATIONS/DECLINE, AND WHEN TO CALL 911. [code = RISK FOR HOSPITALIZATION; SKILLED NURSE TO INSTRUCT PATIENT/CAREGIVER ON RISK FOR HOSPITALIZATION/EMERGENCY ROOM VISITS, TEACH SIGNS AND SYMPTOMS THAT PUT PATIENT AT RISK, WHEN TO NOTIFY NURSE/PHYSICIAN OF COMPLICATIONS/DECLINE, AND WHEN TO CALL 911.] Future Scheduled Test CARDIOVASC ULAR SYSTEM; SKILLED NURSE TO ASSESS AND TEACH RELATED TO ALTERED CARDIOVASCULAR STATUS TO MINIMIZE COMPLICATIONS AND REDUCE HOSPITALIZATION. [code = CARDIOVASCULAR SYSTEM; SKILLED NURSE TO ASSESS AND TEACH RELATED TO ALTERED CARDIOVASCULAR STATUS TO MINIMIZE COMPLICATIONS AND REDUCE HOSPITALIZATION.] Future Scheduled Test HYPERTENSI ON MANAGEMENT; SKILLED NURSE TO ASSESS/TEACH WARNING SIGNS AND SYMPTOMS TO AVOID HOSPITALIZATION. [code = HYPERTENSION MANAGEMENT; SKILLED NURSE TO ASSESS/TEACH WARNING SIGNS AND SYMPTOMS TO AVOID HOSPITALIZATION.] Goal 2022-10-27 Patient Goal - UNABLE TO STA TE Goal Provider Goal - PATIENT/CAREGIVER TO VERBALIZE, AND CONSISTENTLY DEMONSTRATE EFFECTIVE, SAFE MANAGEMENT OF MEDICATION INCLUDING KNOWLEDGE OF EFFECTIVENESS, POTENTIAL SIDE EFFECTS AND DRUG REACTIONS AND WHEN TO CONTACT THE APPROPRIATE CARE PROVIDER. PATIENT/CAREGIVER WILL BE ABLE TO VERBALIZE UNDERSTANDING OF MEDICATION REGIMEN AND ACCURATELY TAKE MEDICATIONS PRESCRIBED WITHOUT ADVERSE EFFECTS BY 10/31/22 Goal Provider Goal - PATIENT/CAREGIVER ABLE TO IDENTIFY FALL RISK FACTORS AND IMPLEMENT STRATEGIES TO MINIMIZE FALL RISK. PATIENT/CAREGIVER WILL VERBALIZE/DEMONSTRATE AN ABILITY TO ADHERE TO FALL REDUCTION SELF MANAGEMENT AND LIFE-STYLE CHANGES AT DISCHARGE. PERSONAL GOAL(S) STATED BY PATIENT/CAREGIVER WILL BE MET BY 10/31/22 Goal Provider Goal - PATIENT / CAREGIVER WILL VERBALIZE / DEMONSTRATE AN ABILITY TO ADHERE TO SELF-MANAGEMENT OF DIABETES MANAGEMENT BY 10/31/22 Goal Provider Goal - PATIENT / CAREGIVER WILL VERBALIZE/DEMONSTRATE UNDERSTANDING OF MEASURES TO MANAGE ALTERED NEUROLOGICAL STATUS BY 5 WEEKS. Goal Provider Goal - A PLAN OF CARE WILL BE ESTABLISHED THAT MEETS THE PATIENTS NEEDS. PATIENT WILL DEMONSTRATE OXYGEN SATURATION WITHIN NORMAL LIMITS OR PATIENTS OPTIMAL LEVEL ESTABLISHED BY THE PHYSICIAN THROUGHOUT CARE. CHANGES TO CO-MORBID CONDITIONS AND ANY NEW CONDITIONS WILL BE IDENTIFIED AND REPORTED TO THE PHYSICIAN. Goal Provider Goal - PATIENT / CAREGIVER WILL VERBALIZE / DEMONSTRATE UNDERSTANDING OF PAIN CONTROL MEASURES BY 10/31/22 Goal Provider Goal - PATIENT/CAREGIVER WILL VERBALIZE UNDERSTANDING OF SIGNS AND SYMPTOMS THAT PUT THE PATIENT AT RISK FOR HOSPITALIZATION /EMERGENCY ROOM VISITS, WHEN TO NOTIFY NURSE/PHYSICIAN OF COMPLICATIONS/DECLINE AND WHEN TO CALL 911. Goal Provider Goal - PATIENT / CAREGIVER WILL VERBALIZE/DEMONSTRATE UNDERSTANDING OF MEASURES TO MANAGE ALTERED CARDIOVASCULAR STATUS BY 10/31/22 Goal Provider Goal - PATIENT / CAREGIVER WILL VERBALIZE/DEMONSTRATE AN ABILITY TO ADHERE TO SELF-MANAGEMENT OF HTN TO MINIMIZE COMPLICATIONS AND AVOID HOSPITALIZATION BY END OF EPISODE. Reason for Visit INDEPENDENT IN THE HOME Encounters Start Date/Time End Date/Time Encounter Type Admission Type Attending Rust Care Department Encounter ID Discharge Date Discharge Status Discharge Condition Discharge Reason Percent Goals Met 2022-09-02 00:00:00 2022-10-27 00:00:00 Outpatient NEW ADMISSION [facility] [id number] 2022-10-27 00:00:00 DISCHARGE TO HOME OR SELF CARE INDEPENDEN T IN THE HOME HH OR PAL- GOALS MET 100.00
== END 2024-03-21 14:50 | disposition other institution (70) ==
PROVIDERS: Emergency Provider Emergency Medicine Emergency Medical Services
DX: R07.9 Chest pain, unspecified (principal); R00.1 Bradycardia, unspecified; E11.9 Type 2 diabetes mellitus without complications; I10 Essential (primary) hypertension; E78.00 Pure hypercholesterolemia, unspecified; K21.9 Gastro-esophageal reflux disease without esophagitis; Z87.891 Personal history of nicotine dependence
CPT/HCPCS: 36415; 80053; 83690; 83735; 83880; 84443; 84484; 85025; 85730; 93005; 99284

== ENCOUNTER → 2024-03-21 09:13 | Outpatient (BNV) | payer MEDICARE, SELFPAY | PROVIDERS: Emergency Provider Emergency Medicine Emergency Medical Services; Visit Provider Internal Medicine Cardiovascular Disease | DX: R07.9 Chest pain, unspecified (principal); R00.1 Bradycardia, unspecified | CPT/HCPCS: 93010 ==

== ENCOUNTER → 2024-09-19 11:00 | Outpatient (REF) | payer MEDICARE, SELFPAY | LOC: HO.CARD 11:00 | PROVIDERS: PCP Nurse Practitioner Acute Care; Visit Provider Nurse Practitioner Acute Care | DX: R00.1 Bradycardia, unspecified (principal) | CPT/HCPCS: 93225 ==

== ENCOUNTER → 2024-09-19 11:08 | Outpatient (BNV) | payer MEDICARE, SELFPAY | PROVIDERS: PCP Nurse Practitioner Acute Care; Visit Provider Internal Medicine Cardiovascular Disease | DX: I49.1 Atrial premature depolarization (principal); I49.3 Ventricular premature depolarization | CPT/HCPCS: 93227 ==

== ENCOUNTER 2024-10-02 09:29 | Outpatient (AMB) | payer MEDICARE, SELFPAY ==
--- OUTSIDE RECORDS SUMMARY | 2024-10-01 13:45 | XMS_ITS | Encounter Summary ---
Author Organization [employer] Address [address] [place] [address] Care Team Providers Care Strategic Manager Name Role Phone Unavailable Primary Care Provider Unavailabl e Reason for Visit * Reason Comments Routine Cleaning Encounter Details Date Type Department Care Team (Late st Contact Info) Description 10/01/2024 1:45 PM EDT Office Visit [facility] [address] [place] [address] Gladys Zuniga Dental calculus (Primary Dx); Dental plaque Social History Tobacco Use Types Packs/Day Years Used Date Smoking Tobacco: Unknown Alcohol Use Standard Drinks/Week Comments Defer 0 (1 standard drink = 0.6 oz pur e alcohol) Sex and Gender Information Value Date Recorded Sex Assigned at Male 01/29/2023 1:34 PM EDT Legal Sex Male 1:29 PM EDT Gender Identity Male 01/29/2023 1:34 PM EDT Sexual Orientation Straight 01/29/2023 1: 34 PM EDT documented as of this encounter Progress Notes * Gladys Zuniga - 10/01/2024 1:45 PM EDT Patient ID: Thee Starkey is a 88 y.o. male. Time Out: Timeout Date: 10/01/24, Timeout Time: 1323 (Dental Prophy [facility]) Location: [facility] Tooth: Maxilla and Mandible Procedure: Prophylaxis Verified the above with patient, funeral assistant, and provider. Confirmed via patient's chart, intraorally and by radiographs. Fusing Machine Operator: not applicable Medical Hx: Vitals: There were no vitals taken for this visit. Medications, Med Hx reviewed with patient and updated in chart. Treatment Provided Dental procedures in this visit D1110 - PROPHYLAXIS - ADULT (Completed) Service provider: Gladys Arceo provider: Kelechi Summers DMD D1330 - ORAL HYGIENE INSTRUCTIONS (Completed) Service provider: Gladys Zuniga Billkristen provider: Kelechi Summers DMD D1206 - TOPICAL APPLICATION OF FLUORIDE VARNISH (Completed) Service provider: Gladys Arceo provider: Kelechi Summers DMD D9934 - CLEANING AND INSPECTION OF RPD, MAX (Completed) Service provider: Gladys Zuniga Billing provider: Kelechi Summers DMD Instruments Used: Ultrasonic Scalers, Hand Scalers, Prophy angle, and floss Fluoride: 5% NaF varnish applied and POI given Oral Cancer Screening: No lesions Head/Neck Exam: No Lesions Calculus: Light and Generalized Plaque: Moderate and Generalized Stain: None Bleeding: Light and Generalized Gingiva: Recession- generalized and Erythematous OH: Poor Perio Chart: Not Completed Oral hygiene instructions provided to patient including brushing technique and flossing. Recommendations: London two times daily, modified brandon technique, Floss daily, Electric toothbrush, Soft bristle toothbrush, London Tongue, Anti-sensitivity toothpaste Recall Frequency: 6 mo NV: 6mrc Hygienist: Gladys Zuniga RD documented in this encounter Plan of Treatment Upcoming Encounters Date Type Department Care Team (Late st Contact Info) Description 11/26/2024 8:45 AM EDT Office Visit [facility] [address] [place] [address] Kelechi Summers DMD [address] [place] [address] documented as of this encounter Procedures Procedure Name Priority Date/Time Associated Diagnosis Comments TOPICAL APPLICATION OF FLUORIDE VARNISH Routine 10/01/2024 1:45 PM EDT Dental calculus Dental plaque PROPHYLAXIS - ADULT Routine 10/01/2024 1 :45 PM EDT Dental calculus Dental plaque ORAL HYGIENE INSTRUCTIONS Routine 10/01/2024 1:45 PM EDT Dental calculus Dental plaque CLEANING AND INSPECTION OF RPD, MAX Routine 10/01/2024 1:45 PM EDT documented in this encounter Visit Diagnoses Diagnosis Dental calculus- Primary Accretions on teeth Dental plaque Accretions on teeth documented in this encounter
--- NOTE | 2024-10-02 09:33 | MHC.OFFVIS ---
Vital Signs 10/02/24 09:35 Height 5 ft 6 in BMI Reason not done Patient refused/unable BP 122/60 Blood Pressure Location Lt brachial Position Sitting Pulse 68 Pulse Source Pulse Oximeter Intake Visit Reasons: TUG CAPTAIN/ [facility]/abn holter- margarita Allergies No Known Allergies (No Known Allergies*) Allergy (Verified 03/21/24 09:18) Medication List - Last Reconciled 10/02/24 by Jose Austin MD acetaminophen 650 mg PO Q4H PRN amlodipine 5 mg PO DAILY blood sugar diagnostic As directed check blood sugars once a day blood sugar diagnostic As directed check the blood sugar once a day blood sugar diagnostic (YellowDog Mediauch Ultra Test strips) DIRECTED CHECK THE BLOOD SUGAR ONCE A DAY blood-glucose meter (YellowDog Mediauch Ultra2 Meter kit) As directed check the blood sugar once a day calcium carbonate 500 mg PO Q30M PRN MDD 8 tablets cholecalciferol (vitamin D3) (Vitamin D3) 25 mcg PO BID citalopram 5 mg PO DAILY cyanocobalamin (vitamin B-12) 500 mcg PO Q OTHER DAY donepezil 10 mg PO DAILY hydrochlorothiazide 12.5 mg PO DAILY 90 days lactulose 10 grams PO DAILY PRN lancets (iComputing TechnologiesTouch Delica Plus Lancet) As directed check the BS QD lancets (OneTouch Delica Lancets) As directed check the blood sugar q.day levothyroxine 50 mcg PO DAILY lisinopril 10 mg PO DAILY melatonin 3 mg PO BEDTIME PRN mirtazapine 15 mg PO BEDTIME omeprazole 20 mg PO DAILY sennosides (senna) 8.6 mg PO DAILY@1700 HPI Comments Details: Thee is here for consultation regarding bradycardia. He comes in a wheelchair and accompanied by his son. He recently had a Holter monitor which had shown bradycardia. Patient himself has absolutely no cardiac symptoms. He denies any chest pains or shortness of breath or palpitations or dizzy spells or syncopal episodes or in fact any cardiac symptoms whatsoever. He also denies any prior cardiac history including coronary disease or myocardial infarction or cardiomyopathy. FOR[facility]LY [facility], [facility] Medical History TSH elevation Type 2 diabetes mellitus with hyperglycemia GERD (gastroesophageal reflux disease) Hypercholesterolemia Hypertension Surgical History History of inguinal hernia repair History of right hip replacement Family History (Updated 12/29/22 @ 08:22 by Ofelia Ayala CMA) Father No problems noted. Mother No problems noted. Social History (Updated 10/02/24 @ 09:49 by Viky Patterson) Housing: House Alcohol intake: never Patient Tobacco Use Status: Former Tobacco user Tobacco use type: Cigarette Years Smoked: stopped 1999 e-Cigarette/Vaping Use: Never Used Second Hand Smoke Exposure: No Advance Directives Date on File: 08/21/22 service: Yes Current occupational status: retired Cognitive needs: No Hearing needs: No Vision needs: Yes Review of Systems Const Denies weakness ENT Denies dizziness Card Denies chest pain, Denies chest pain with activity, Denies syncope, Denies rapid heart rate, Denies pedal edema, Denies edema, Denies leg edema, Denies lightheadedness, Denies palpitations, Denies dyspnea, Denies dyspnea on exertion and Denies orthopnea Resp Denies cough, Denies dyspnea and Denies dyspnea on exertion GI Denies hematochezia and Denies change in stool character Musc Denies abnormal gait, Denies muscle cramps, Denies muscle weakness, Denies numbness, Denies radiating pain into limb and Denies tingling Neuro Denies abnormal gait, Denies dizziness, Denies syncope, Denies numbness, Denies tingling and Denies weakness Endo Denies palpitations Physical Exam Vital Signs: Last Vital Signs Pulse 68 10/02/24 09:35 BP 122/60 10/02/24 09:35 Const General: comfortable and no acute distress Orientation/consciousness: patient oriented x3 HEENT Other: Unremarkable Head: Yes normal to inspection Neck Neck: Yes normal visual inspection Chest Chest palpation & inspection: normal inspection of the chest Resp Auscultation: clear to auscultation bilaterally Cardio Palpation: normal PMI Heart sounds: S1 normal heart sound present, S2 normal heart sound present, no gallops, no murmurs and no rubs GI Palpation (GI): Soft to palpation Back/Spine/Pelvis Other: unremarkable Skin General skin exam: no rashes or lesions noted Neuro General: patient oriented x3 Extrem General: Yes normal to inspection Psych Mental Status: mental status grossly normal Assessment & Plan Assessment & Plan (1) Bradycardia: Code(s): R00.1 - Bradycardia, unspecified Category: Medical Plan In the last EKG, sinus bradycardia at 56/Min; no significant ST-T changes; normal CO and corrected QT. Holter monitor reviewed. Underlying rhythm is sinus with an average rate of 51/Min. About 84% of the time, ventricular rate < 60/Min. Pauses noted but there are also PACs noted during those pauses and hence suspect blocked PACs. Longest pause was 3.1 seconds during sleep hours. 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 No clear evidence of advanced AV block. PACs/PVCs noted. Overall, he has got asymptomatic bradycardia. We went over symptoms from bradycardia in detail including possible dizziness, presyncope or syncope but he does not have any of this. However, we will watch for it in the future. We will get an echocardiogram for cardiac function assessment. We will follow up with another Holter monitoring 6 months' time. Clinic visit at that time. They will contact us with any interim concerns. No indication for pacemaker at this time. Additionally, PCP to review the medications he is taking including citalopram, donepezil as some of that can cause bradycardia. Discussion Notes I discussed with the patient that his heart rate is slower than normal, but without symptoms, no immediate intervention is necessary. I explained that the only treatment for symptomatic bradycardia would be a pacemaker, which is not currently indicated. We will re-evaluate with a Holter monitor in six months and perform an echocardiogram to further assess cardiac function. Patient was informed and verbally consented to the use of an ambient scribe for clinic note documentation during this visit. Patient Instructions: - Monitor for symptoms such as dizziness or fainting and report them immediately. - Follow up with a Holter monitor test in six months. - Undergo an echocardiogram as scheduled. Coding Level of Care Code New Pt Level 4 (32216) Complex EM visit Add On G2211 Diagnoses Bradycardia R00.1
[2024-10-02 09:35] VITALS: BP 122/60; PULSE 68
== END 2024-10-02 10:08 | disposition home or self-care (01) ==
LOC: HO.HCS 09:30
PROVIDERS: PCP Nurse Practitioner Acute Care; Visit Provider Internal Medicine
DX: R00.1 Bradycardia, unspecified (principal)
CPT/HCPCS: 99204; G2211

== ENCOUNTER → 2024-10-02 09:29 | Outpatient (BNVA) | payer MEDICARE, SELFPAY | PROVIDERS: PCP Nurse Practitioner Acute Care; Visit Provider Internal Medicine | DX: R00.1 Bradycardia, unspecified (principal) | CPT/HCPCS: 99202 ==

== ENCOUNTER 2024-10-10 11:56 | Outpatient (REF) | payer MEDICARE, SELFPAY ==
--- OUTSIDE RECORDS SUMMARY | 2024-10-10 12:58 | XMS_ITS | Encounter Summary ---
Author Organization [employer] Address 75 [facility] [address] [place] [address] Care Team Providers Care Data Warehouse Analyst Name Role Phone Unavailable Primary Care Provider Unavailabl e Encounter Details Date Type Department Care Team (Late st Contact Info) Description 05/24/2023 Abstract [facility] [address] [place] [address] Kelechi Summers, DMD [address] [place] [address] Social History Tobacco Use Types Packs/Day Years Used Date Smoking Tobacco: Never Assessed Sex and Gender Information Value Date Recorded Sex Assigned at Male 01/29/2023 1:34 PM EDT Legal Sex Male 1:29 PM EDT Gender Identity Male 01/29/2023 1:34 PM EDT Sexual Orientation Straight 01/29/2023 1: 34 PM EDT documented as of this encounter Plan of Treatment Upcoming Encounters Date Type Department Care Team (Late st Contact Info) Description 11/26/2024 8:45 AM EDT Office Visit [facility] [address] [place] [address] Kelechi Summers, DMD [address] [place] [address] documented as of this encounter Visit Diagnoses Not on filedocumented in this encounter
[2024-10-10 13:13] LABS: Adenovirus PCR Not Detected (Not Detect.); Bordetella parapertussis PCR Not Detected (Not Detect.); Bordetella pertussis PCR Not Detected (Not Detect.); Chlamydia pneumoniae PCR Not Detected (Not Detect.); Coronavirus 229E PCR Not Detected (Not Detect.); Coronavirus HKU1 PCR Not Detected (Not Detect.); Coronavirus NL63 PCR Not Detected (Not Detect.); Coronavirus OC43 PCR Not Detected (Not Detect.); Human metapneumovirus PCR Not Detected (Not Detect.); Influenza A PCR Not Detected (Not Detect.); Influenza B PCR Not Detected (Not Detect.); Mycoplasma pneumoniae PCR Not Detected (Not Detect.); Parainfluenza 1 PCR Not Detected (Not Detect.); Parainfluenza 2 PCR Not Detected (Not Detect.); Parainfluenza 3 PCR Not Detected (Not Detect.); Parainfluenza 4 PCR Not Detected (Not Detect.); RSV PCR Not Detected (Not Detect.); Rhino/Enterovirus PCR Detected (Not Detect.)
[2024-10-10 14:10] LABS: Influenza A H1 PCR Not Detected (Not Detect.); Influenza A H1-2009 PCR Not Detected (Not Detect.); Influenza A H3 PCR Not Detected (Not Detect.); SARS-CoV-2 PCR Not Detected (Not Detect.)
== END 2024-10-10 11:57 | disposition home or self-care (01) ==
LOC: HO.HSH3N 11:56
PROVIDERS: Visit Provider Nurse Practitioner Acute Care
DX: J06.9 Acute upper respiratory infection, unspecified (principal)
CPT/HCPCS: 87633

== ENCOUNTER 2024-10-20 06:52 | Outpatient (REF) | payer MEDICARE, SELFPAY ==
[2024-10-20 06:55] LABS: MANUAL DIFF FLAG NO
[2024-10-20 07:30] LABS: Hematocrit 32.7 % (42.0-52.0); Hemoglobin 10.9 g/dl (14.0-18.0); Imm Gran Abs Auto 0.09 X10*3/uL (0.00-0.03); Imm Gran Pct Auto 1.4 % (0.0-0.4); Lymphocytes Absolute Auto 1.2 X10*3/uL (1.2-4.9); Mean Corpuscular HGB Conc 33.3 g/dl (31.0-36.0); Mean Corpuscular Hemoglobin 29.9 pg (27.0-33.0); Mean Corpuscular Volume 89.6 fL (80.0-98.0); NRBC Abs Auto 0.000 X10*3/uL (0.0-0.012); NRBC Pct Auto 0.0 /100WBC (0.0-0.2); Platelet Count 308 X10*3/uL (160-400); Red Blood Count 3.65 X10*6/uL (4.60-5.80); White Blood Count 6.4 X10*3/uL (4.8-10.8)
[2024-10-20 07:40] LABS: Anion Gap 14 (12-20); Blood Urea Nitrogen 22 mg/dL (9-16); Calcium 8.5 mg/dL (8.4-10.2); Carbon Dioxide 22 mmol/L (22-29); Chloride 106 mmol/L (96-108); Estimated Glomerular Filt Rate 52; Potassium 3.8 mmol/L (3.3-5.1); Sodium 138 mmol/L (135-145)
== END 2024-10-20 06:53 | disposition home or self-care (01) ==
LOC: HO.HSH3N 06:52
PROVIDERS: Nurse Practitioner; Visit Provider Nurse Practitioner Acute Care
DX: R53.1 Weakness (principal)
CPT/HCPCS: 36415; 80048; 85025

== ENCOUNTER 2024-11-04 06:10 | Outpatient (REF) | payer MEDICARE, SELFPAY ==
--- OUTSIDE RECORDS SUMMARY | 2024-11-04 06:12 | XMS_ITS | Encounter Summary ---
Author Organization [employer] Address 75 [facility] [address] [place] [address] Care Team Providers Care Search Analyst Name Role Phone Unavailable Primary Care Provider Unavailabl e Encounter Details Date Type Department Care Team (Late st Contact Info) Description 05/24/2023 Abstract [facility] D[facility]AL [address] [place] [address] Kelechi Summers, DMD [address] [place] [address] Social History Tobacco Use Types Packs/Day Years [...] Team (Late st Contact Info) Description 11/26/2024 8:30 AM EDT Office Visit [facility] [address] [place] [address] Kelechi Summers, DMD [address] [place] [address] documented as of this encounter Visit Diagnoses Not on filedocumented in this encounter
[2024-11-04 06:56] LABS: Anion Gap 12 (12-20); Blood Urea Nitrogen 25 mg/dL (9-16); Calcium 8.6 mg/dL (8.4-10.2); Carbon Dioxide 24 mmol/L (22-29); Chloride 109 mmol/L (96-108); Estimated Glomerular Filt Rate 40; Potassium 4.3 mmol/L (3.3-5.1); Sodium 141 mmol/L (135-145)
[2024-11-04 07:15] LABS: Thyroid Stimulating Hormone 1.81 uIU/mL (0.32-4.0)
== END 2024-11-04 06:11 | disposition home or self-care (01) ==
LOC: HO.HSH3N 06:10
PROVIDERS: Visit Provider Internal Medicine
DX: I49.5 Sick sinus syndrome (principal); E03.9 Hypothyroidism, unspecified; R00.1 Bradycardia, unspecified
CPT/HCPCS: 36415; 80048; 84443

== ENCOUNTER 2024-11-07 06:16 | Outpatient (REF) | payer MEDICARE, SELFPAY ==
--- OUTSIDE RECORDS SUMMARY | 2024-11-07 06:18 | XMS_ITS | Encounter Summary ---
Author Organization [employer] Address 75 [facility] [address] [place] [address] Care Team Providers Care Cna Per Diem Name Role Phone Unavailable Primary Care Provider Unavailabl e Encounter Details Date Type Department Care Team (Late st Contact Info) Description 05/24/2023 Abstract [facility] D[facility]AL [address] [place] [address] Kelechi Summers, DMD [address] [place] [address] Social History Tobacco Use Types Packs/Day Years [...] Description 11/26/2024 8:30 AM EDT Office Visit [facility] [address] [place] [address] Kelechi Summers, DMD [address] [place] [address] documented as of this encounter Visit Diagnoses Not on filedocumented in this encounter
[2024-11-07 06:54] LABS: Magnesium 1.7 mg/dL (1.6-2.6)
== END 2024-11-07 06:17 | disposition home or self-care (01) ==
LOC: HO.HSH3N 06:16
PROVIDERS: Visit Provider Nurse Practitioner Acute Care
DX: R00.1 Bradycardia, unspecified (principal)
CPT/HCPCS: 36415; 83735

== ENCOUNTER 2024-11-17 06:35 | Outpatient (REF) | payer MEDICARE, SELFPAY ==
--- OUTSIDE RECORDS SUMMARY | 2024-11-17 06:37 | XMS_ITS | Encounter Summary ---
Author Organization [employer] Address 75 [facility] [address] [place] [address] Care Team Providers Care Retail Customer Service Representative Name Role Phone Unavailable Primary Care Provider Unavailabl e Encounter Details Date Type Department Care Team (Late st Contact Info) Description 05/24/2023 Abstract [facility] D[facility] [address] [place] [address] Kelechi Summers, DMD [address] [place] [address] Social History Tobacco Use Types Packs/Day Years [...] Description 11/26/2024 8:30 AM EDT Office Visit [facility] [address] [place] [address] Kelechi Summers, DMD [address] [place] [address] documented as of this encounter Visit Diagnoses Not on filedocumented in this encounter
[2024-11-17 07:03] LABS: Anion Gap 13 (12-20); Blood Urea Nitrogen 30 mg/dL (9-16); Calcium 8.6 mg/dL (8.4-10.2); Carbon Dioxide 23 mmol/L (22-29); Chloride 107 mmol/L (96-108); Estimated Glomerular Filt Rate 50; Potassium 4.0 mmol/L (3.3-5.1); Sodium 139 mmol/L (135-145)
[2024-11-17 07:24] LABS: Hemoglobin A1C 163.7116 umol/L; Total Hemoglobin (HGBA1C) 3065.4383 umol/L
== END 2024-11-17 06:36 | disposition home or self-care (01) ==
LOC: HO.HSH3N 06:35
PROVIDERS: Visit Provider Nurse Practitioner Acute Care
DX: E11.9 Type 2 diabetes mellitus without complications (principal)
CPT/HCPCS: 36415; 80048; 83036

== ENCOUNTER 2025-01-06 07:02 | Outpatient (REF) | payer MEDICARE, SELFPAY ==
--- OUTSIDE RECORDS SUMMARY | 2024-12-31 15:15 | XMS_ITS | Encounter Summary ---
Author Organization [employer] Address 75 [facility] 7 [place] [address] Care Team Providers Care Plant Technical Specialist Name Role Phone Unavailable Primary Care Provider Unavailabl e Reason for Visit * Reason Comments Routine Cleaning Encounter Details Date Type Department Care Team (Late st Contact Info) Description 12/31/2024 3:15 PM EDT Office Visit [facility] D[facility] [address] [place] [address] Gladys Zuniga Dental calculus (Primary Dx); Dental plaque; Periodontal disease Social History Tobacco Use Types Packs/Day Years [...] encounter Progress Notes * Gladys Zuniga - 12/31/2024 3:15 PM EDT Patient ID: Thee Starkey is a 89 y.o. male. Time Out: Timeout Date: 12/31/24, Timeout Time: 1418 (Dental Prophy [facility]) Location: [facility] Tooth: Maxilla and Mandible Procedure: Prophylaxis Verified the above with patient, gift shop assistant, and provider. Confirmed via patient's chart, intraorally and by radiographs. Cadmium Plater: not applicable Medical Hx: Vitals: There were no vitals taken for this visit. Medications, Med Hx reviewed with patient and updated in chart. Treatment Provided Dental procedures in this visit D1330 - ORAL HYGIENE INSTRUCTIONS (Completed) Service provider: Gladys Zuniga Billing provider: Kelechi Summers DMD D1206 - TOPICAL APPLICATION OF FLUORIDE VARNISH (Completed) Service provider: Gladys Zuniga Billing provider: Kelechi Summers DMD D9934 - CLEANING AND INSPECTION OF RPD, MAX (Completed) Service provider: Gladys Zuniga Billing provider: Kelechi Summers DMD D4346 - SCALING IN PRESENCE OF MOD-SEVERE GING INFL - FULL MOUTH, AFTER ORAL EVAL (Completed) Service provider: Gladys Zuniga Billing provider: Kelechi Summers DMD Instruments Used: Hand Scalers, Prophy angle, and floss Fluoride: 5% NaF varnish applied and POI given Oral Cancer Screening: No lesions Head/Neck Exam: No Lesions Calculus: Heavy and Generalized Plaque: Heavy and Generalized Stain: Light and Generalized Bleeding: Heavy and Generalized Gingiva: Bleeding on probing, Recession- generalized, Edematous, and Erythematous OH: Poor Perio Chart: Completed Oral hygiene instructions provided to patient including brushing technique and flossing. Recommendations: Iola two times daily, modified brandon technique, Floss daily, Electric toothbrush, Soft bristle toothbrush, Iola Tongue, Anti-sensitivity toothpaste Recall Frequency: 3 mo NV: 3mrc Hygienist: Gladys Zuniga RD documented in this encounter Plan of Treatment Not on file documented as of this encounter Procedures Procedure Name Priority Date/Time Associated Diagnosis Comments SCALING IN PRESENCE OF MOD-SEVERE GING INFL - FULL MOUTH, AFTER ORAL EVAL Routine 12/31/2024 3:15 PM EDT Dental calculus Dental plaque Periodontal disease TOPICAL APPLICATION OF FLUORIDE VARNISH Routine 12/31/2024 3:15 PM EDT Dental calculus Dental plaque ORAL HYGIENE INSTRUCTIONS Routine 12/31/2024 3:15 PM EDT Dental calculus Dental plaque Periodontal disease CLEANING AND INSPECTION OF RPD, MAX Routine 12/31/2024 3:15 PM EDT Dental calculus Dental plaque documented in this encounter Visit Diagnoses Diagnosis Dental calculus- Primary Accretions on teeth Dental plaque Accretions on teeth Periodontal disease Unspecified gingival and periodontal disease documented in this encounter
--- OUTSIDE RECORDS SUMMARY | 2025-01-06 07:04 | XMS_ITS | Clinical Summary ---
Author Organization [employer] Address 75 [facility] 7t [place] [address] Care Team Providers Care Application Software Developer Name Role Phone Unavailable Primary Care Provider Unavailabl e Allergies No known active allergies Medications esomeprazole (NexIUM) [address] capsule Take 40 mg by mouth in the morning. 3 Active lisinopril 10 MG tablet Take 1 tablet by mouth in the morning. 1 Active metFORMIN (Glucophage) 500 MG tablet Take 1 tablet by mouth 2 times daily. 2 Active hydroCHLOROthia zide (HYDRODiuril) 25 MG tablet Take 1 tablet by mouth in the morning. 1 Active omeprazole (PriLOSEC) [address] capsule Take 40 mg by mouth in the evening. Do not crush or chew. Active acetaminophen (Tylenol) 325 MG tablet Take 650 mg by mouth every 4 (four) hours if needed for mild pain. Active bisacodyl (Fleet Bisacodyl) 10 MG/30ML enema Insert 10 mg into the rectum Once daily as needed for constipation. Active sennosides (Senokot) 8.6 MG tablet Take 1 tablet by mouth in the morning. Active glyBURIDE (Diabeta) 5 MG tablet Take 1 tablet by mouth 2 times daily. 2 Active simvastatin (Zocor) 80 MG tablet 40 mg. 1 Active amLODIPine (Norvasc) 2.5 MG tablet Take by mouth Once per day. Active cholecalciferol (Vitamin D-3) 25 MCG (1000 UT) capsule Take by mouth. Act sam citalopram (CeleXA) 10 MG/5ML solution Take 10 mg by mouth Once per day. Active cyanocobalamin (Vitamin B-12) 500 MCG tablet Take 500 mcg by mouth Once per day. Active donepezil (Aricept) 10 MG tablet Take 10 mg by mouth at bedtime. Active levothyroxine (Tirosint) 50 MCG capsule Take by mouth before breakfast. Active mirtazapine (Remeron) 7.5 MG tablet Take 7.5 mg by mouth at bedtime. Active calcium carbonate (Tums) 500 MG chewable tablet Chew 500 mg Once per day. Active guaiFENesin (Robitussin) 100 MG/5ML liquid Take 200 mg by mouth if needed in the morning, at noon, and at bedtime for cough. Active lactulose (Chronulac) 10 GM/15ML solution Take 20 g by mouth 3 times daily. Active capsicum (Zostrix) 0.075 % topical cream Apply topically 3 times daily. Active aluminum & magnesium hydroxide-simet hicone (Mylanta) 200-200-20 MG/5ML oral suspension Take by mouth every 6 (six) hours if needed for indigestion or heartburn. Active melatonin 3 MG tablet Take 3 mg by mouth at bedtime. Active Active Problems Problem Noted Date Diagnosed Date Gastrointestinal hemorrhage 03/26/2024 Obesity 03/26/2024 Type 2 diabetes mellitus without complication Mild cognitive impairment of uncertain or unknow n etiology 09/02/2022 Type 2 diabetes mellitus with hyperglycemia 08/15 Bradycardia, unspecified 04/16/2019 Essential hypertension 04/16/2019 Gastro-esophageal reflux disease without esophag itis 04/16/2019 intermediate designer (current) use of oral hypoglycemic lulu ryan 04/16/2019 Personal history of nicotine dependence 04/16/19 20 Pure hypercholesterolemia, unspecified 0 Encounters Date Type Department Care Team Description 12/31/2024 3:15 PM EDT Office Visit [facility] D[facility] [address] [place] [id number] Gladys Zuniga Dental calculus (Primary Dx); Dental plaque; Periodontal disease 12/24/2024 8:45 AM EDT Office Visit [address] [address] Kelechi Summers DMD Periodontitis (Primary Dx); Periodontosis; Periapical abscess without sinus 11/26/2024 8:30 AM EDT Office Visit [address] [phone] Kelechi Summers DMD from Last 3 Months Social History Tobacco Use Types Packs/Day Years Used Date Smoking Tobacco: Unknown Tobacco Cessation:Counseling Given: Not Answered Alcohol Use Standard Drinks/Week Comments Defer 0 (1 standard drink = 0.6 oz pur e alcohol) Sex and Gender Information Value Date Recorded Sex Assigned at Male 01/29/2023 1:34 PM EDT Legal Sex Male 1:29 PM EDT Gender Identity Male 01/29/2023 1:34 PM EDT Sexual Orientation Straight 01/29/2023 1: 34 PM EDT Plan of Treatment Health Maintenance Due Date Last Done Comments Depression Screening 1935 Diabetes: Hemoglobin A1C 1935 Lipid Panel 1935 SDOH Screening 1935 Diabetes: Foot Exam 12/07/1945 Eye Exam 12/07/1945 Alcohol/Substance Use Screening 1947 Diabetes: Urine Protein Screening 12/07/1954 RSV Patients and Patients Aged 60 years or older (1 - 1-dose 75+ series) 12/07/2010 Zoster Vaccines (3 of 3) 05/17/2020 03/22/2020, 04/16 COVID-19 Vaccine ( season) 2024 02/02/2023, 02/01/2022, 08/16/2021, Additional history exists Influenza Vaccine (#1) 2024 , 01/29/2023, 02/10/2022, Additional history exists Dental Oral Exam 12/20/2024 06/18/2024, , 02/14/2023 Dental X-Ray: Bitewings 02/27/2025 02/27/2024, 02/07 Dental Prophylaxis 04/03/2025 10/01/2024, 0 07/03/2024, 04/02/2024, Additional history exists Tobacco Screening 12/31/2025 12/31/2024 Dental X-Ray: Full Mouth 02/08/2026 02/07/2023 DTaP/Tdap/Td Vaccines (3 - Tdap) 05/24/2031 05/24/2021, 03/05/2012, 03/14/2011 Pneumococcal Vaccine: 50+ Years Completed 01/01/2019, 12/27/2017, 05/01/2016, Additional history exists HIB Vaccines Aged Out No longer eligi ble based on patient's age to complete this topic HPV Vaccines Aged Out No longer eligi ble based on patient's age to complete this topic Hepatitis A Vaccines Aged Out No long er eligible based on patient's age to complete this topic Hepatitis B Vaccines Aged Out No long er eligible based on patient's age to complete this topic IPV Vaccines Aged Out No longer eligi ble based on patient's age to complete this topic Meningococcal B Vaccine Aged Out No l onger eligible based on patient's age to complete this topic Meningococcal Vaccine Aged Out No sebastien kanchan eligible based on patient's age to complete this topic RSV under 20 months Aged Out No longe r eligible based on patient's age to complete this topic Rotavirus Vaccines Aged Out No longer eligible based on patient's age to complete this topic Procedures Procedure Name Priority Date/Time Associated Diagnosis Comments SCALING IN PRESENCE OF MOD-SEVERE GING INFL - FULL MOUTH, AFTER ORAL EVAL Routine 12/31/2024 3:15 PM EDT Dental calculus Dental plaque Periodontal disease TOPICAL APPLICATION OF FLUORIDE VARNISH Routine 12/31/2024 3:15 PM EDT Dental calculus Dental plaque ORAL HYGIENE INSTRUCTIONS Routine 2024 3:15 PM EDT Dental calculus Dental plaque Periodontal disease CLEANING AND INSPECTION OF RPD, MAX Routine 12/31/2024 3:15 PM EDT Dental calculus Dental plaque CLEANING AND INSPECTION OF RPD, MAX Routine 12/24/2024 8:45 AM EDT 22,21,20 INTRAORAL - PERIAPICAL EACH ADDITIONAL RADIOGRAPHIC IMAGE Routine 12/24/2024 8:45 AM EDT 26,23 INTRAORAL - PERIAPICAL EACH ADDITIONAL RADIOGRAPHIC IMAGE Routine 12/24/2024 8:45 AM EDT 29,28,27 INTRAORAL - PERIAPICAL EACH ADDITIONAL RADIOGRAPHIC IMAGE Routine 12/24/2024 8:45 AM EDT 10,11,12 INTRAORAL - PERIAPICAL EACH ADDITIONAL RADIOGRAPHIC IMAGE Routine 12/24/2024 8:45 AM EDT 10 INTRAORAL - PERIAPICAL EACH ADDITIONAL RADIOGRAPHIC IMAGE Routine 12/24/2024 8:45 AM EDT 6,7 INTRAORAL - PERIAPICAL FIRST RADIOGRAPHIC IMAGE Routine 12/24/2024 8:45 AM EDT 5 INTRAORAL - PERIAPICAL EACH ADDITIONAL RADIOGRAPHIC IMAGE Routine 12/24/2024 8:45 AM EDT COMPREHENSIVE PERIODONTAL EVALUATION - NEW OR ESTABLISHED PATIENT Routine 12/24/2024 8:45 AM EDT NO CHARGE VISIT Routine 11/26/2024 8:30 AM EDT PROPHYLAXIS - ADULT Routine 10/01/2024 1 :45 PM EDT Dental calculus Dental plaque PERIODIC ORAL EVALUATION - ESTABLISHED PATIENT Routine 06/18/2024 10:30 AM EST BITEWINGS - 4 RADIOGRAPHIC IMAGES Routine 02/27/2024 11:00 AM EST INTRAORAL - COMPLETE SERIES OF RADIOGRAPHIC IMAGES Routine 02/07/2023 9:00 AM EDT from Last 3 Months or Most Recently Relevant to Health Maintenance
--- OUTSIDE RECORDS SUMMARY | 2025-01-06 07:04 | XMS_ITS | Encounter Summary ---
Author Organization [employer] Address 75 [facility] 7 [place] [address] Care Team Providers Care Waterproofing Supervisor Name Role Phone Unavailable Primary Care Provider Unavailabl e Encounter Details Date Type Department Care Team (Late st Contact Info) Description 05/24/2023 Abstract [facility] [address] [place] [address] Kelechi Summers, DMD [address] [place] [address] Social History Tobacco Use Types Packs/Day Years Used Date Smoking Tobacco: Never Assessed Sex and Gender Information Value Date Recorded Sex Assigned at Male 01/29/2023 1:34 PM EDT Legal Sex Male 1:29 PM EDT Gender Identity Male 01/29/2023 1:34 PM EDT Sexual Orientation Straight 01/29/2023 1: 34 PM EDT documented as of this encounter Plan of Treatment Not on file documented as of this encounter Visit Diagnoses Not on filedocumented in this encounter
--- OUTSIDE RECORDS SUMMARY | 2025-01-06 07:04 | XMS_ITS | Encounter Summary ---
Author Organization [employer] Address 75 [facility] 7 [place] [address] Care Team Providers Care Provider Relations Consultant Name Role Phone Unavailable Primary Care Provider Unavailabl e Encounter Details Date Type Department Care Team (Late st Contact Info) Description 05/16/2023 Abstract [facility] D[facility] [address] [place] [address] Kelechi Summers, DMD [address] [place] [address] Social History Tobacco Use Types Packs/Day Years [...]
--- OUTSIDE RECORDS SUMMARY | 2025-01-06 07:04 | XMS_ITS | Encounter Summary ---
Author Organization [employer] Address 75 [facility] 7 [place] [address] Care Team Providers Care Lavatory Attendant Name Role Phone Unavailable Primary Care Provider Unavailabl e Encounter Details Date Type Department Care Team (Late st Contact Info) Description 05/16/2023 Abstract [facility] D[facility] [address] [place] [address] Kelechi Summers, DMD [address] [place] [address] Social History Tobacco Use Types Packs/Day Years [...]
[2025-01-06 07:34] LABS: Calcium 9.0 mg/dL (8.4-10.2); Chloride 108 mmol/L (96-108); Potassium 3.7 mmol/L (3.3-5.1); Sodium 142 mmol/L (135-145)
== END 2025-01-06 07:03 | disposition home or self-care (01) ==
LOC: HO.HSH3N 07:02
PROVIDERS: Visit Provider Nurse Practitioner
DX: Z13.89 Encounter for screening for other disorder (principal)
CPT/HCPCS: 36415; 80048

== ENCOUNTER → 2025-01-19 10:48 | Outpatient (REF) | payer MEDICARE, SELFPAY ==
--- NOTE | 2025-01-19 11:00 | HM_ITS ---
* Total monitoring time 7 days. * Underlying rhythm is sinus with an average rate of 55/Min. About 70% of the time, rate < 60/Min. * No significant pauses or high-grade AV blocks. * Episode of atrial tachycardia with block noted during sleep hours but does not appear significant. * Ventricular ectopy noted with a burden of 1.6%. * No patient markers or diary events. MTDD
--- OUTSIDE RECORDS SUMMARY | 2025-01-19 12:59 | XMS_ITS | Encounter Summary ---
Author Organization [employer] Address 75 [facility] [address] [place] [address] Care Team Providers Care Bioprocess Development Engineer Name Role Phone Unavailable Primary Care Provider Unavailabl e Encounter Details Date Type Department Care Team (Late st Contact Info) Description 05/24/2023 Abstract [facility] D[facility] [address] [place] [address] Kelechi Summers, DMD [address] [place] [address] Social History Tobacco Use Types Packs/Day Years [...]
--- OUTSIDE RECORDS SUMMARY | 2025-01-19 12:59 | XMS_ITS | Clinical Summary ---
Author Organization [employer] Address 75 [facility] 7t [place] [address] Care Team Providers Care Asphalt Distributor Operator Name Role Phone Unavailable Primary Care Provider [...] Gastro-esophageal reflux disease without esophag itis 04/16/2019 nursing home (current) use of oral hypoglycemic lulu ryan 04/16/2019 Personal history of nicotine dependence 04/16/19 20 Pure hypercholesterolemia, unspecified 0 Encounters Date Type Department Care Team Description 12/31/2024 3:15 PM EDT Office Visit [facility] [address] [place] [phone] Gladys Zuniga Dental calculus (Primary Dx); Dental plaque; Periodontal disease 12/24/2024 8:45 AM EDT Office Visit [address] [address] Kelechi Summers DMD Periodontitis (Primary Dx); Periodontosis; Periapical abscess without sinus 11/26/2024 8:30 AM EDT Office Visit [address] [phone] Kelechi Summers DMD from Last 3 Months [...]
--- OUTSIDE RECORDS SUMMARY | 2025-01-19 12:59 | XMS_ITS | Encounter Summary ---
Author Organization [employer] Address 75 [facility] 7 [place] [address] Care Team Providers Care Packing House Laborer Name Role Phone Unavailable Primary Care Provider Unavailabl e Encounter Details Date Type Department Care Team (Late st Contact Info) Description 05/16/2023 Abstract [facility] [address] [place] [address] Kelechi Summers, DMD [address] [place] [address] Social History Tobacco Use Types Packs/Day Years [...]
--- OUTSIDE RECORDS SUMMARY | 2025-01-19 12:59 | XMS_ITS | Encounter Summary ---
Author Organization [employer] Address 75 [facility] 7 [place] [address] Care Team Providers Care Micro Photographer Name Role Phone Unavailable Primary Care Provider Unavailabl e Encounter Details Date Type Department Care Team (Late st Contact Info) Description 05/16/2023 Abstract [facility] D[facility] [address] [place] [address] Kelechi Summers, DMD [address] [place] [address] Social History Tobacco Use Types Packs/Day Years [...]
== END ==
LOC: HO.CARD 10:48
PROVIDERS: Visit Provider Nurse Practitioner Acute Care
DX: R00.1 Bradycardia, unspecified (principal)
CPT/HCPCS: 93242

== ENCOUNTER → 2025-01-19 11:00 | Outpatient (BNV) | payer MEDICARE, SELFPAY | PROVIDERS: Visit Provider Internal Medicine | DX: I47.19 Other supraventricular tachycardia (principal) | CPT/HCPCS: 93244 ==

== ENCOUNTER 2025-02-03 14:22 | Outpatient (AMB) | payer MEDICARE, SELFPAY ==
--- NOTE | 2025-02-03 14:28 | A.OFFVIS_ITS ---
Vital Signs 02/03/25 14:33 Height 5 ft 6 in BMI Reason not done Patient refused/unable BP 140/72 H Blood Pressure Location Lt brachial Position Sitting Pulse 64 Pulse Source Monitor Intake Visit Reasons: [facility] call for urgent fu after holter Pier Hand Required: No Accompanied by: Brother Allergies No Known Allergies (No Known Allergies*) Allergy (Verified 03/21/24 09:18) Medication List - Last Reconciled 02/03/25 by Jose Austin MD acetaminophen 650 mg PO Q4H PRN amlodipine 5 mg PO DAILY blood sugar diagnostic As directed check blood sugars once a day blood sugar diagnostic As directed check the blood sugar once a day blood sugar diagnostic (Summit Broadbanduch Ultra Test strips) DIRECTED CHECK THE BLOOD SUGAR ONCE A DAY blood-glucose meter (Summit Broadbanduch Ultra2 Meter kit) As directed check the blood sugar once a day calcium carbonate 500 mg PO Q30M PRN MDD 8 tablets cholecalciferol (vitamin D3) (Vitamin D3) 25 mcg PO BID citalopram 5 mg PO DAILY cyanocobalamin (vitamin B-12) 500 mcg PO Q OTHER DAY donepezil 10 mg PO DAILY hydrochlorothiazide 12.5 mg PO DAILY 90 days lactulose 10 grams PO DAILY PRN lancets (D.light DesignTouch Delica Plus Lancet) As directed check the BS QD lancets (OneTouch Delica Lancets) As directed check the blood sugar q.day levothyroxine 50 mcg PO DAILY lisinopril 10 mg PO DAILY melatonin 3 mg PO BEDTIME PRN mirtazapine 15 mg PO BEDTIME omeprazole 20 mg PO DAILY sennosides (senna) 8.6 mg PO DAILY@1700 HPI Comments Details: Thee returns for follow-up. He was seen in consultation in the past for bradycardia. He is accompanied by his son and dizzy in a wheelchair. A prior Holter monitor had shown bradycardia. Patient himself has no symptoms like feeling dizzy or presyncopal. No other cardiac symptoms and no prior cardiac history either. Overall, he states he feels fine and there is no new concern. Ongoing memory issues. [facility] Medical History TSH elevation Type 2 diabetes mellitus with hyperglycemia GERD (gastroesophageal reflux disease) Hypercholesterolemia Hypertension Surgical History History of inguinal hernia repair History of right hip replacement Family History Father No problems noted. Mother No problems noted. Social History Housing: House Alcohol intake: never Patient Tobacco Use Status: Former Tobacco user Tobacco use type: Cigarette Years Smoked: stopped 1999 e-Cigarette/Vaping Use: Never Used Second Hand Smoke Exposure: No Advance Directives Date on File: 08/21/22 service: Yes Current occupational status: retired Cognitive needs: No Hearing needs: No Vision needs: Yes Review of Systems Const Denies chills, Denies fatigue, Denies fever(s), Denies frequent falls, Denies weakness, Denies weight gain and Denies weight loss ENT Denies dizziness Card Denies chest pain, Denies leg edema, Denies lightheadedness, Denies palpitations, Denies dyspnea and Denies dyspnea on exertion Resp Denies cough, Denies dyspnea and Denies dyspnea on exertion GI Denies hematochezia Musc Denies abnormal gait, Denies muscle weakness, Denies numbness, Denies radiating pain into limb and Denies tingling Neuro Denies abnormal gait, Denies dizziness, Denies frequent falls, Denies numbness, Denies tingling and Denies weakness Endo Denies fatigue and Denies palpitations Physical Exam Vital Signs: Last Vital Signs Pulse 64 02/03/25 14:33 BP 140/72 H 02/03/25 14:33 Const General: comfortable and no acute distress Orientation/consciousness: patient oriented x3 HEENT Other: Unremarkable Head: Yes normal to inspection Neck Neck: Yes normal visual inspection Chest Chest palpation & inspection: normal inspection of the chest Resp Auscultation: clear to auscultation bilaterally Cardio Palpation: normal PMI Heart sounds: S1 normal heart sound present, S2 normal heart sound present, no gallops, no murmurs and no rubs GI Palpation (GI): Soft to palpation Back/Spine/Pelvis Other: unremarkable Skin General skin exam: no rashes or lesions noted Neuro General: patient oriented x3 Extrem General: Yes normal to inspection Psych Mental Status: mental status grossly normal Assessment & Plan Assessment & Plan (1) Bradycardia: Code(s): R00.1 - Bradycardia, unspecified Category: Medical Plan Cardiac studies reviewed. n the last EKG, sinus bradycardia at 56/Min; no significant ST-T changes; normal FL and corrected QT. Holter from 09/2024- Underlying rhythm is sinus with an average rate of 51/Min. About 84% of the time, ventricular rate < 60/Min. Pauses noted but there are also PACs noted during those pauses and hence suspect blocked PACs. Longest pause was 3.1 seconds during sleep hours. 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 No clear evidence of advanced AV block. PACs/PVCs noted. Repeat Holter-01/2025-underlying sinus rhythm with average rate of 55/Min. No significant pauses or high-grade AV blocks. Suspected atrial tachycardia with block at nighttime. Overall, unremarkable Holter findings and no overt concerns. We will also get an echocardiogram for cardiac function assessment. Otherwise, in the absence of any symptoms, we will continue to monitor. No indication for pacemaker. Additionally, PCP to review the medications he is taking including donepezil as it can cause bradycardia. Discussion Notes I discussed with the patient and his son that the heart rate is on the slower side, which is not uncommon and not necessarily concerning unless accompanied by symptoms like dizziness or syncope. We agreed to monitor the heart rate and symptoms, and I ordered an echocardiogram to evaluate cardiac function. Follow- up appointments will be scheduled every six months to ensure ongoing stability. Patient was informed and verbally consented to the use of an ambient scribe for clinic note documentation during this visit. Orders: Orders CA echo transthoracic complete Today R00.1 - Bradycardia, unspecified Patient Instructions: - Monitor for symptoms such as dizziness or feeling faint. - Attend follow-up appointments every six months. Coding Level of Care Code Est Pt Level 4 (65858) Complex EM visit Add On G2211 Diagnoses Bradycardia R00.1
[2025-02-03 14:33] VITALS: BP 140/72; PULSE 64
--- OUTSIDE RECORDS SUMMARY | 2025-02-03 19:28 | XMS_ITS | Encounter Summary ---
Author Organization [employer] Address [address] [facility] [address] 7 [place] [address] Care Team Providers Care Fast Food Fry Cook Name Role Phone Unavailable Primary Care Provider Unavailabl e Encounter Details Date Type Department Care Team (Late st Contact Info) Description 05/16/2023 Abstract [facility] [address] [place] [address] Kelechi Summers, DMD [address] [place] [address] Social History Tobacco Use Types Packs/Day Years [...]
--- OUTSIDE RECORDS SUMMARY | 2025-02-03 19:28 | XMS_ITS | Clinical Summary ---
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) use of oral hypoglycemic lulu ryan 04/16/2019 Personal history of nicotine dependence 04/16/19 20 Pure hypercholesterolemia, unspecified 0 Encounters Date Type Department Care Team Description 12/31/2024 3:15 PM EDT Office Visit [facility] [address] [place] [id number] Gladys Zuniga Dental calculus (Primary Dx); Dental plaque; Periodontal disease 12/24/2024 8:45 AM EDT Office Visit [address] [address] Kelechi Summers DMD Periodontitis (Primary Dx); Periodontosis; Periapical abscess without sinus 11/26/2024 8:30 AM EDT Office Visit [address] [phone] Kelechi Summers DMD from Last 3 Months [...]
--- OUTSIDE RECORDS SUMMARY | 2025-02-03 19:28 | XMS_ITS | Encounter Summary ---
Author Organization [employer] Address [address] [facility] [address] [place] [address] Care Team Providers Care Homemaking Rehabilitation Consultant Name Role Phone Unavailable Primary Care Provider Unavailabl e Encounter Details Date Type Department Care Team (Late st Contact Info) Description 05/24/2023 Abstract [facility] [address] [place] [address] Kelechi Summers, DMD [address] [place] [address] Social History Tobacco Use Types Packs/Day Years [...]
--- OUTSIDE RECORDS SUMMARY | 2025-02-03 19:28 | XMS_ITS | Encounter Summary ---
Author Organization [employer] Address [address] [facility] 7 [place] [address] Care Team Providers Care Mds Coordinator Name Role Phone Unavailable Primary Care Provider Unavailabl e Encounter Details Date Type Department Care Team (Late st Contact Info) Description 05/16/2023 Abstract [facility] [address] [place] [address] Kelechi Summers, DMD [address] [place] [address] Social History Tobacco Use Types Packs/Day Years [...]
== END 2025-02-03 14:58 | disposition home or self-care (01) ==
LOC: HO.HCS 14:22
PROVIDERS: Visit Provider Internal Medicine
DX: R00.1 Bradycardia, unspecified (principal)
CPT/HCPCS: 99214; G2211

== ENCOUNTER → 2025-02-03 14:22 | Outpatient (BNVA) | payer MEDICARE, SELFPAY | PROVIDERS: Visit Provider Internal Medicine | DX: R00.1 Bradycardia, unspecified (principal) | CPT/HCPCS: 99212 ==

== ENCOUNTER → 2025-03-06 10:46 | Outpatient (REF) | payer MEDICARE, SELFPAY ==
--- NOTE | 2025-03-06 11:17 | CA_ITS ---
Transthoracic Echocardiogram Patient (Last, First, Middle): Thee Starkey W Gender: M Date of : 1935 Age: 89 Procedure Date: 03/06/2025 Procedure Type: Transthoracic Echocardiogram Location: OP Height: 162. cm Weight: 65.77 kg BSA: 1.70 m2 Heart Rate: 51 bpm BP: 150 / 80 mmHg Vice President Quality Improvement: MARTHA Referring MD: Jose Austin MD Symptoms: R00.1 - Bradycardia, unspecified Study Quality: Fair ECG Rhythm: Sinus bradycardia Conclusions: - The left ventricular systolic function is normal. The calculated ejection fraction is 61% by biplane method. - No obvious valvular pathology seen on this study. Findings Left Ventricle Normal left ventricular cavity size. There is normal left ventricular wall thickness. The left ventricular systolic function is normal. The calculated ejection fraction is 61% by biplane method. There is no evidence of regional wall motion abnormalities. Diastolic function is normal for age. Right Ventricle Normal right ventricular cavity size and systolic function. Atria Both atria are normal in size. Aortic Valve There is mild calcification of the aortic valve. There is no aortic valve stenosis. There is no aortic valve regurgitation. Mitral Valve There is mild mitral annular calcification. There is trace mitral valve regurgitation. There is no mitral valve stenosis. Pulmonic Valve The pulmonic valve is likely normal. Tricuspid Valve There is mild tricuspid valve regurgitation. There is no evidence of pulmonary hypertension. Great Vessels The asc aorta and aortic arch are normal in size. Venous The inferior vena cava was not well visualized. Pericardium/Pleural There is no evidence of pericardial effusion. Prior Study Comparison No prior study available for comparison. Recommendations, Care & Conclusions No obvious valvular pathology seen on this study. Measurements 2D Linear Measurements IVSd: 0.93 0.6-0.9/0.6-1.0 cm LVIDd: 3.36 3.9-5.3/4.2-5.9 cm LVIDd Index: 1.98 2.4-3.2/2.2-3.1 cm/m2 LVIDs: 2.38 2.0-3.6 cm LVPWd: 1.01 0.7-1.1 cm LA Diam: 3.70 2.7-3.8/3.0-4.0 cm LAIDs Index: 2.18 1.5-2.3 cm/m2 LV Mass: 115.73 67-162/88-224 g LV Mass Index: 68.08 43-95/49-115 g/m2 LVOT Diam: 2.00 3.0+(-)1.3 cm 2D Systolic Function EF 4C: 56.00 >55% EF 2C: 65.00 >55% EF BiP: 60.70 >55% Mitral Valve MV Pk E: 0.55 MV PK A: 0.98 MV Decel Time: 397.00 E/A: 0.60 E'Lateral: 5.34 E'Medial: 3.50 E/E' Med: 15.80 E/E' Lat: 10.40 PHT: 116.00 MVA PHT: 1.90 Decel Aguada: 1.39 Aortic Valve AoV Pk Isai: 1.36 AoV Mn Isia: 1.02 AoV VTI: 0.36 AoV Pk Grad: 7.00 Aov Mn Grad: 5.00 ANA Cont.VTI: 2.18 LVOT LVOT Pk Isai: 0.93 LVOT Mn Isai: 0.67 LVOT VTI: 0.25 LVOT Pk Grad: 3.00 LVOT Mn Grad: 2.00 LVOT Diam: 2.00 LVOT Area: 3.14 Diastolic Function MV Pk E: 0.55 MV Pk A: 0.98 E/A: 0.60 E'Medial: 3.50 E/E' Med: 15.80 E' Laterial: 5.34 E/E' Lat: 10.40 Right Ventricle TAPSE (mm): 24.80 TVS' Isai: 10.70 Tricuspid Valve TR Pk Isai: 2.30 TR Pk Grad: 21.00 Great Vessels Aorta Sinus of Valsalva: 3.40 2.0-3.5 cm Ao Asc: 3.50 2.1-3.4 cm Ao Arch: 3.40 Pulmonary Valve PV Pk Isai: 1.09 Peak PV Grad: 5.00 Updated in Other Vendor System with Status of Final Jose Austin MD electronically signed on 03/07/2025 12:33:08 PM with status of Final
--- OUTSIDE RECORDS SUMMARY | 2025-03-06 11:29 | XMS_ITS | Encounter Summary ---
Author Organization [employer] Address [address] [facility] [address] [place] [address] Care Team Providers Care United States Marshal Name Role Phone Unavailable Primary Care Provider Unavailabl e Encounter Details Date Type Department Care Team (Late st Contact Info) Description 05/24/2023 Abstract [facility] [address] [place] [address] Kelechi Summers DMD [address] [place] [address] Social History Tobacco Use Types Packs/Day Years [...] Care Team (Late st Contact Info) Description 03/18/2025 3:15 PM EST Office Visit [facility] [address] [place] [address] Mariajose Nash [address] [place] [address] documented as of this encounter Visit Diagnoses Not on filedocumented in this encounter
--- OUTSIDE RECORDS SUMMARY | 2025-03-06 11:30 | XMS_ITS | Encounter Summary ---
Author Organization [employer] Address [address] [facility] [address] [place] [address] Care Team Providers Care Caddy Name Role Phone Unavailable Primary Care Provider Unavailabl e Encounter Details Date Type Department Care Team (Late st Contact Info) Description 05/16/2023 Abstract [facility] [address] [place] [address] Kelechi Summers DMD [address] [place] [address] Social History Tobacco Use Types Packs/Day Years [...] Description 03/18/2025 3:15 PM EST Office Visit [facility] [address] [place] [address] Mariajose Nash [address] [place] [address] documented as of this encounter Visit Diagnoses Not on filedocumented in this encounter
--- OUTSIDE RECORDS SUMMARY | 2025-03-06 11:30 | XMS_ITS | Clinical Summary ---
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) use of oral hypoglycemic lulu ryan 04/16/2019 Personal history of nicotine dependence 04/16/19 20 Pure hypercholesterolemia, unspecified 0 Encounters Date Type Department Care Team Description 12/31/2024 3:15 PM EDT Office Visit [facility] [address] [place] [address] Gladys Zuniga Dental calculus (Primary Dx); Dental plaque; Periodontal disease 12/24/2024 8:45 AM EDT Office Visit [facility] [address] [place], [place] [phone] Kelechi Summers DMD Periodontitis (Primary Dx); Periodontosis; Periapical abscess without sinus from Last 3 Months Social History Tobacco [...] 1: 34 PM EDT Plan of Treatment Upcoming Encounters Date Type Department Care Team (Late st Contact Info) Description 03/18/2025 3:15 PM EST Office Visit [facility] [address] [place], [place] [phone] Ferrlisai Mariajose [address] [facility] [place], [place] [phone] Health Maintenance Due Date Last Done Comments [...] ESTABLISHED PATIENT Routine 12/24/2024 8:45 AM EDT PROPHYLAXIS - ADULT Routine 10/01/2024 [...]
--- OUTSIDE RECORDS SUMMARY | 2025-03-06 11:30 | XMS_ITS | Encounter Summary ---
Author Organization [employer] Address [address] [facility] [address] [place] [address] Care Team Providers Care Second Officer Name Role Phone Unavailable Primary Care Provider Unavailabl e Encounter Details Date Type Department Care Team (Late st Contact Info) Description 05/16/2023 Abstract [facility] [address] [place] [address] Kelechi Summers DMD [address] [place] [address] Social History Tobacco Use Types Packs/Day Years [...] Description 03/18/2025 3:15 PM EST Office Visit [facility] [address] [place] [address] Mariajose Nash [address] [place] [address] documented as of this encounter Visit Diagnoses Not on filedocumented in this encounter
== END ==
LOC: HO.CARD 10:46
PROVIDERS: PCP Internal Medicine; Visit Provider Internal Medicine
DX: R00.1 Bradycardia, unspecified (principal)
CPT/HCPCS: 93306

== ENCOUNTER → 2025-03-06 11:17 | Outpatient (BNV) | payer MEDICARE, SELFPAY | PROVIDERS: PCP Internal Medicine; Visit Provider Internal Medicine | DX: I35.8 Other nonrheumatic aortic valve disorders (principal); I34.81 Nonrheumatic mitral (valve) annulus calcification | CPT/HCPCS: 93306 ==

== ENCOUNTER 2025-04-01 23:37 | Emergency (ER) | payer MEDICARE, SELFPAY ==
--- NOTE | ~2025-04-01 | CT_ITS ---
CLINICAL HISTORY: fall, mild headache CT head without contrast Comparison: CT/REG/SR - CT HEAD/BRAIN WO IV CON - 04/21/23 01:05 EST Findings: No acute intracranial hemorrhage. No acute large territorial ischemia. Similar focal left frontal high convexity encephalomalacia. Moderate chronic microvascular ischemic change and parenchymal atrophy. ICA calcifications. No mass effect, midline shift, or hydrocephalus. Paranasal sinuses are clear. Mastoid air cells are clear. The orbits are within normal limits. No skull fracture. IMPRESSION: No acute intracranial abnormality. Moderate chronic microvascular ischemic change and parenchymal atrophy. This document has been electronically signed by: Fabrizio Gallegos MD on 04/02/2025 01:33:15
--- NOTE | ~2025-04-01 | XR_ITS ---
CLINICAL HISTORY: fall, pain 3 views lumbar spine Comparison: None provided Findings: Slight convex right curvature. Right hip arthroplasty. No dislocation. Osteopenia. No acute fracture. Moderate to severe lower lumbar facet disease most evident at L5-S1. [id number] multilevel disc disease most evident at L3-L4. IMPRESSION: Degenerative changes. No acute fracture seen within the limitations of osteopenia. This document has been electronically signed by: Chintan Robles MD on 04/02/2025 04:12:59
--- NOTE | ~2025-04-01 | CT_ITS ---
CLINICAL HISTORY: mild cervical spine pain, fall CT cervical spine without contrast Comparison: CT/REG/SR - CT CERVICAL SPINE WO IV CON - 04/21/23 01:05 EST Findings: No acute fractures or traumatic malalignment. No significant spondylolisthesis. Multilevel cervical spondylosis, moderate at C5-C6 and C6-C7. Similar multilevel advanced degenerative facet arthropathy with resultant mild anterolisthesis of C3 on C4, C4 on C5, and C7 on T1. Advanced atlantodental degenerative changes. No acute findings on limited view of the intracranial contents. Carotid artery calcifications. Lung apices are clear. IMPRESSION: No acute cervical spine fracture or traumatic malalignment. This document has been electronically signed by: Fabrizio Gallegos MD on 04/02/2025 01:36:43
[2025-04-01 23:42] VITALS: BP 164/92; BP 171/85; PULSE 66; PULSE 75; RESP 16; TEMP 36.4; O2SAT 98; O2SAT 99; BMI 26.6
--- NOTE | 2025-04-01 23:51 | ED.FALL ---
HPI - Fall General Chief Complaint: Fall Stated Complaint: unwitnessed fall Time Seen by Provider: 04/01/25 23:44 Source: patient Mode of arrival: ambulatory Limitations: no limitations History of Present Illness ED Provider: Dr. Alice Roche HPI Narrative: Patient comes to the emergency room complaining of a fall. [facility] was found in his room, unwitnessed fall. However, patient has dementia and states that he lives with his son, patient states that she is not sure what happened but believes that he tripped over something and ended up landing on his buttocks. Patient complaining of lower back pain. States that he has a bit of back pain and neck pain but is not sure if he hit his head or neck. Denies losing consciousness, denies using blood thinners. Related Data Home Medications ?Medication ?Instructions ?Recorded ?Confirmed donepezil 10 mg tablet 10 mg PO DAILY 08/12/21 02/03/25 acetaminophen 325 mg tablet 650 mg PO Q4H PRN Fever Or Pain 04/21/23 02/03/25 calcium carbonate 500 mg PO Q30M PRN GERD 04/21/23 02/03/25 cholecalciferol (vitamin D3) 25 25 mcg PO BID 04/21/23 02/03/25 mcg (1,000 unit) tablet (Vitamin D3) citalopram 10 mg/5 mL oral solution 5 mg PO DAILY 04/21/23 02/03/25 cyanocobalamin (vitamin B-12) 500 500 mcg PO Q OTHER DAY 04/21/23 02/03/25 mcg tablet lactulose 10 gram/15 mL oral 10 g PO DAILY PRN Constipation 04/21/23 02/03/25 solution omeprazole 20 mg tablet,delayed 20 mg PO DAILY 04/21/23 02/03/25 release sennosides 8.6 mg tablet (senna) 8.6 mg PO DAILY@1700 04/21/23 02/03/25 amlodipine 5 mg tablet 5 mg PO DAILY 10/02/24 02/03/25 levothyroxine 50 mcg/mL oral 50 mcg PO DAILY 10/02/24 02/03/25 solution melatonin 3 mg capsule 3 mg PO BEDTIME PRN 10/02/24 02/03/25 mirtazapine 7.5 mg tablet 15 mg PO BEDTIME 10/02/24 02/03/25 Previous Rx's ?Medication ?Instructions ?Recorded blood sugar diagnostic #100 ea 04/25/21 blood sugar diagnostic #100 ea 06/06/21 blood-glucose meter (OneTouch #1 ea 06/06/21 Ultra2 Meter kit) lisinopril 10 mg tablet 10 mg PO DAILY #90 tabs 06/16/22 lancets 33 gauge (OneTouch Delica #100 ea 09/04/22 Lancets) blood sugar diagnostic (OneTouch #100 strips 09/21/22 Ultra Test strips) lancets 30 gauge (OneTouch Delica #100 ea 12/29/22 Plus Lancet) hydrochlorothiazide 12.5 mg tablet 12.5 mg PO DAILY 90 days #90 tabs 01/14/23 Allergies Allergy/AdvReac Type Severity Reaction Status Date / Time No Known Allergies (No Known Allergy Verified 04/01/25 23:56 Allergies*) Review of Systems Review of Systems: Constitutional : No Weight loss, No Fever, No Chills, No Night Sweats, No Fatigue, No Malaise ENT/Mouth : No Hearing loss, No Ear Pain, No Nasal Congestion, No Sinus Pain, No Hoarseness, No sore throat, No Rhinorrhea, No Swallowing Difficulty Eyes: No Eye Pain, No Swelling, No Redness, No Foreign Body, No Discharge, No Vision Changes Cardiovascular : No Chest Pain, No SOB, No Dyspnea on Exertion, No Orthopnea, No Edema, No Palpitations Respiratory : No Cough, No Sputum, No Wheezing, No Smoke Exposure, No Dyspnea Gastrointestinal : No Nausea, No Vomiting, No Diarrhea, No Constipation, No abdominal Pain, No Hematochezia, No Melena Genitourinary : no irregular bleeding, No Dysuria, No Urinary Frequency, No Hematuria, No Urinary Incontinence, No Urgency, No Flank Pain, No Urinary Flow Changes, No Hesitancy Musculoskeletal : Complaining of mild posterior neck pain, Complaining of lower back pain No joint pain, No Myalgias, No Joint Swelling Skin : No Skin Lesions, No rash Neuro : No Weakness, No Numbness, No Paresthesias, No Loss of Consciousness, No Dizziness, No Headache Psych : No Anxiety/Panic, No Depression, No SI/HI/AH/VH, No Social Issues, Heme/Lymph: No Bruising, No Bleeding,No Lymphadenopathy Endocrine : No Polyuria, No Polydipsia, No Temperature Intolerance [facility] Past Medical History Medical History TSH elevation Type 2 diabetes mellitus with hyperglycemia GERD (gastroesophageal reflux disease) Hypercholesterolemia Hypertension Surgical History History of inguinal hernia repair History of right hip replacement Family History Family History Father No problems noted. Mother No problems noted. Social History Social History Housing: House Unable to assess alcohol history related to: Unknown Alcohol intake: never Patient Tobacco Use Status: Former Tobacco user Tobacco use type: Cigarette Years Smoked: stopped 2000 Smoked in Last 30 Days: No e-Cigarette/Vaping Use: Never Used Second Hand Smoke Exposure: No Use of substances other than those prescribed or required for medical reasons: No Any prior treatment program specific to substance use: No Advance Directives: Yes Advance Directives on File: Yes Advance Directives Date on File: 08/21/22 Do you have a plan to hurt others: No Plan service: Yes Current occupational status: retired Cognitive needs: No Hearing needs: No Vision needs: Yes Physical Exam Exam: Exam: Appearance: Alert. Oriented X3. No acute distress. Eyes: Pupils equal, round and reactive to light. ENT: Pharynx normal. Neck: Normal inspection. Neck supple. No lymph nodes noted. No crepitus, neck pain to palpation on the left lateral aspect of the neck, no C-spine tenderness, no palpable step-offs CVS: Normal heart rate and rhythm. Pulses normal. Normal S1 and S2 Respiratory: No respiratory distress. Breath sounds normal. No Wheezing. No rales Abdomen: Soft and nontender. No rigidity. No distention. Back: No pain to palpation over the thoracic or lumbar. However, patient did have reproducible pain with sitting up. Negative straight leg raise test bilaterally Skin: Skin warm and dry. Normal skin color. Normal skin turgor. Extremities: No lower extremity edema. No Lacerations. No Rash Neuro: Oriented X 3. No motor deficit. No sensory deficit. Moving all extremities. No slurred speech. CN 2 through 12 grossly intact Psych: calm, cooperative, normal affect Vital Signs: Vital Signs: Last Vital Signs Temp 97.6 F 04/02/25 00:32 Pulse 75 04/02/25 00:32 Resp 16 04/02/25 00:32 BP 171/85 H 04/02/25 00:32 Pulse Ox 98 04/02/25 00:32 O2 Del Method Room Air 04/01/25 23:42 BMI result Body Mass Index 26.6 Course Course Course Narrative: Patient states that he feels fairly well, states that she may benefit from 1 time dose of Tylenol. Point of care, urinalysis pending CT scan of the head neck and x-rays of the lumbar spine pending Medications Administered Discontinued Medications Generic Name Dose Route Start Last Admin Trade Name Brandee PRN Reason Stop Dose Admin Acetaminophen 975 mg 04/02/25 00:00 04/02/25 01:51 Acetaminophen 325 Mg Tablet PO 04/02/25 00:01 975 mg ONCE ONE Administration Medical Decision Making Medical Decision Making [facility] Narrative: Interpretation of labs: Patient's plan of care 321, patient known to be diabetic. Urinalysis negative for UTI. Head CT and cervical spine CT did not show any acute abnormality, only chronic changes. X-ray negative for fractures. Patient likely has a contusion. No obvious ecchymosis Differential Diagnosis Differential Diagnoses: The differential diagnosis associated with the presentation includes (Contusion, concussion) Lab Data [facility] Lab Attestation statement: I reviewed the patient's lab results. Labs: Lab Results 04/02/25 04/02/25 Range/Units 00:31 01:10 POC Glucose 321 H (60-115) mg/dL Urine Color Yellow Urine Appearance Clear Urine pH 7.0 (5.0-9.0) Ur Specific [place] 1.020 (1.005-1.025) Urine Protein 30 (1+) H (Neg-Trace) mg/dL Urine Glucose (UA) >=1000 H (Negative) mg/dL Urine Ketones Negative (Negative) mg/dL Urine Blood Negative (Negative) Urine Nitrite Negative (Negative) Ur Leukocyte Esterase Negative (Negative) Urine RBC 0-2 (0-2) /HPF Urine WBC 0-5 (0-5) /HPF Ur Squamous Epith Cells 0-2 (0-2) /HPF Urine Bacteria None Seen (None Seen) Hyaline Casts 0-2 (0-2) /LPF Independent Interpretation I performed an independent interpretation of an: Plain X-Ray and CT Scan Radiology Impression Discussion of test interpretation with radiology: I have reviewed the radiologist's reading. Radiologist Impression: Head CT: No acute intracranial hemorrhage. No acute large territorial ischemia. Similar focal left frontal high convexity encephalomalacia. Moderate chronic microvascular ischemic change and parenchymal atrophy. ICA calcifications. No mass effect, midline shift, or hydrocephalus. Paranasal sinuses are clear. Mastoid air cells are clear. The orbits are within normal limits. No skull fracture. IMPRESSION: No acute intracranial abnormality. Moderate chronic microvascular ischemic change and parenchymal atrophy. CT scan of cervical spine: No acute fractures or traumatic malalignment. No significant spondylolisthesis. Multilevel cervical spondylosis, moderate at C5-C6 and C6-C7. Similar multilevel advanced degenerative facet arthropathy with resultant mild anterolisthesis of C3 on C4, C4 on C5, and C7 on T1. Advanced atlantodental degenerative changes. No acute findings on limited view of the intracranial contents. Carotid artery calcifications. Lung apices are clear. IMPRESSION: No acute cervical spine fracture or traumatic malalignment. Slight convex right curvature. Right hip arthroplasty. No dislocation. Osteopenia. No acute fracture. Moderate to severe lower lumbar facet disease most evident at L5-S1. [id number] multilevel disc disease most evident at L3-L4. IMPRESSION: Degenerative changes. No acute fracture seen within the limitations of osteopenia Discharge Plan Discharge Clinical Impression: Fall, Back pain Patient Disposition: Home, Self-Care Instructions: Fall Prevention for Older Adults (ED), Contusion in Adults (ED), Back Pain (ED) Additional Instructions: Please follow-up with your primary care physician tomorrow. If you have any worsening or new symptoms, please return to the emergency room or call 911 Prescriptions: No Action (DME) OneTouch Ultra Blue Test Strip Strip See Rx Instructions .ROUTE .MEDSUPPLY Qty: 100 3RF Rx Instructions: As directed check blood sugars once a day (DME) blood-glucose meter [OneTouch Ultra2 Meter] Kit See Rx Instructions .ROUTE .MEDSUPPLY Qty: 1 0RF Rx Instructions: As directed check the blood sugar once a day (DME) blood sugar diagnostic Strip See Rx Instructions .ROUTE .MEDSUPPLY Qty: 100 3RF Rx Instructions: As directed check the blood sugar once a day lisinopril 10 mg tablet 10 mg PO DAILY Qty: 90 3RF (DME) lancets [OneTouch Delica Lancets] 33 gauge misc See Rx Instructions .ROUTE .MEDSUPPLY Qty: 100 3RF Rx Instructions: As directed check the blood sugar q.day (DME) OneTouch Ultra Test Strip See Rx Instructions .ROUTE .COMPLEX Qty: 100 3RF Dose Instruction: DIRECTED CHECK THE BLOOD SUGAR ONCE A DAY Rx Instructions: DIRECTED CHECK THE BLOOD SUGAR ONCE A DAY hydrochlorothiazide 12.5 mg tablet 12.5 mg PO DAILY 90 Days Qty: 90 3RF sennosides [senna] 8.6 mg Tablet 8.6 mg PO DAILY@1700 cyanocobalamin (vitamin B-12) 500 mcg Tablet 500 mcg PO Q OTHER DAY cholecalciferol (vitamin D3) [Vitamin D3] 25 mcg (1,000 unit) Tablet 25 mcg PO BID acetaminophen 325 mg Tablet 650 mg PO Q4H PRN (Reason: Fever Or Pain) calcium carbonate 500 mg calcium (1,250 mg) Tablet,Chewable 500 mg PO Q30M MDD 8 tablets PRN (Reason: GERD) lactulose 10 gram/15 mL Solution 10 g PO DAILY PRN (Reason: Constipation) omeprazole 20 mg Tablet,Delayed Release (Dr/Ec) 20 mg PO DAILY citalopram 10 mg/5 mL Solution 5 mg PO DAILY mirtazapine 7.5 mg tablet 15 mg PO BEDTIME donepezil 10 mg tablet 10 mg PO DAILY (DME) lancets [OneTouch Delica Plus Lancet] 30 gauge misc See Rx Instructions .Route Qty: 100 3RF Rx Instructions: As directed check the BS QD amlodipine 5 mg tablet 5 mg PO DAILY levothyroxine 50 mcg/mL solution 50 mcg PO DAILY melatonin 3 mg capsule 3 mg PO BEDTIME PRN Print Language: Macedonian
--- NOTE | 2025-04-01 23:52 | ECG_ITS ---
Test Reason : WEAKNESS Blood Pressure : */* mmHG Vent. Rate : 75 BPM Atrial Rate : 75 BPM P-R Int : 226 ms QRS Dur : 82 ms QT Int : 410 ms P-R-T Axes : -3 -24 0 degrees QTcB Int : 457 ms Sinus rhythm with 1st degree A-V block Septal infarct , age undetermined Abnormal ECG When compared with ECG of 21-Mar-2024 09:15, HI interval has increased Nonspecific T wave abnormality, worse in Lateral leads Referred By: Alice Roche Electronically Signed By: João Norton
--- OUTSIDE RECORDS SUMMARY | 2025-04-02 00:10 | XMS_ITS | Encounter Summary ---
Author Organization [employer] Address [address] [facility] [address] [place] [address] Care Team Providers Care School Counsellor Name Role Phone Unavailable Primary Care Provider Unavailabl e Encounter Details Date Type Department Care Team (Late st Contact Info) Description 05/24/2023 Abstract [facility] [address] [place] [address] Kelechi Summers, DMD [address] [place] [address] Social History Tobacco Use Types Packs/Day Years [...] Care Team (Late st Contact Info) Description 05/06/2025 9:45 AM EST Office Visit [facility] [address] [place] [address] Kelechi Summers, DMD [address] [place] [address] documented as of this encounter Visit Diagnoses Not on filedocumented in this encounter
--- OUTSIDE RECORDS SUMMARY | 2025-04-02 00:10 | XMS_ITS | Encounter Summary ---
Author Organization [employer] Address [address] [facility] [address] [place] [address] Care Team Providers Care Pediatric Dermatologist Name Role Phone Unavailable Primary Care Provider Unavailabl e Encounter Details Date Type Department Care Team (Late st Contact Info) Description 05/16/2023 Abstract [facility] [address] [place] [address] Kelechi Summers, DMD [address] [place] [address] Social History Tobacco Use Types Packs/Day Years [...] Description 05/06/2025 9:45 AM EST Office Visit [facility] [address] [place] [address] Kelechi Summers, DMD [address] [place] [address] documented as of this encounter Visit Diagnoses Not on filedocumented in this encounter
--- OUTSIDE RECORDS SUMMARY | 2025-04-02 00:10 | XMS_ITS | Encounter Summary ---
Author Organization [employer] Address [address] [facility] [address] [place] [address] Care Team Providers Care Information Coder Name Role Phone Unavailable Primary Care Provider Unavailabl e Encounter Details Date Type Department Care Team (Late st Contact Info) Description 05/16/2023 Abstract [facility] [address] [place] [address] Kelechi Summers, DMD [address] [place] [address] Social History Tobacco Use Types Packs/Day Years [...] Description 05/06/2025 9:45 AM EST Office Visit [facility] [address] [place] [address] Kelechi Summers, DMD [address] [place] [address] documented as of this encounter Visit Diagnoses Not on filedocumented in this encounter
--- OUTSIDE RECORDS SUMMARY | 2025-04-02 00:10 | XMS_ITS | Clinical Summary ---
Author Organization [employer] Address [address] [facility] [address] [place] [address] Care Team Providers Care Gold Layer Name Role Phone Unavailable Primary Care Provider [...] 3 mg by mouth at bedtime. Active DULoxetine (Cymbalta) [address] capsule Take 30 mg by mouth 2 times daily. Do not crush or chew. Active Active Problems Problem Noted Date Diagnosed Date Gastrointestinal hemorrhage 03/26/2024 Obesity 03/26/2024 Type 2 diabetes mellitus without complication Mild cognitive impairment of uncertain or unknow n etiology 09/02/2022 Type 2 diabetes mellitus with hyperglycemia 08/15 Bradycardia, unspecified 04/16/2019 Essential hypertension 04/16/2019 Gastro-esophageal reflux disease without esophag itis 04/16/2019 nursing home (current) use of oral hypoglycemic lulu gs 04/16/2019 Personal history of nicotine dependence 04/16/19 20 Pure hypercholesterolemia, unspecified 0 Encounters Date Type Department Care Team Description 03/18/2025 3:15 PM EST Office Visit [facility] [address] [place] [phone] Mariajose Nash from Last 3 Months Social History Tobacco [...] Description 05/06/2025 9:45 AM EST Office Visit [facility] [address] [place] [address] Kelechi Summers, DMD [address] [place] [address] Health Maintenance Due Date Last Done Comments [...] X-Ray: Bitewings 02/27/2025 02/27/2024, 02/07 Dental Prophylaxis 09/17/2025 03/18/2025, 0 10/01/2024, 07/03/2024, Additional history exists Dental X-Ray: Full Mouth 02/08/2026 02/07/2023 Tobacco Screening 03/18/2026 03/18/2025 DTaP/Tdap/Td Vaccines (3 - Tdap) 05/24/2031 05/24/2021, [...] on patient's age to complete this topic Goals Goal Patient Goal Type Associated Problems Recent Progress Patient-Stated? Author Help patients manage their type 2 diabetes Care Plan Help patients manage their type 2 diabetes Mariajose Crawley Weekly blood pressure task Care Plan Weekly blood pressure task Mariajose Crawley Help patients manage their type 2 diabetes Care Plan Help patients manage their type 2 diabetes Mariajose Crawley Patient has chronic kidney disease Care Plan Patient has chronic kidney disease Mariajose Crawley Weekly blood pressure task Care Plan Weekly blood pressure task Mariajose Crawley Patient has chronic kidney disease Care Plan Patient has chronic kidney disease Mariajose Crawley Procedures Procedure Name Priority Date/Time Associated Diagnosis Comments CLEANING AND INSPECTION OF RPD, MAX Routine 03/18/2025 3:15 PM EST ORAL HYGIENE INSTRUCTIONS Routine 2024 3:15 PM EST Full TOPICAL APPLICATION OF FLUORIDE VARNISH Routine 03/18/2025 3:15 PM EST PROPHYLAXIS - ADULT Routine 03/18/2025 3 :15 PM EST PERIODIC ORAL EVALUATION - ESTABLISHED PATIENT Routine 06/18/2024 10:30 AM EST BITEWINGS - 4 RADIOGRAPHIC IMAGES Routine 02/27/2024 11:00 AM EST INTRAORAL - COMPLETE SERIES OF RADIOGRAPHIC IMAGES Routine 02/07/2023 9:00 AM EDT from Last 3 Months or Most Recently Relevant to Health Maintenance Additional Health Concerns Active Problems Noted Date Diagnosed Date Help patients manage their type 2 diabetes 03/18 Weekly blood pressure task 03/18/2025 Help patients manage their type 2 diabetes 03/18 Patient has chronic kidney disease 03/18/2025 Weekly blood pressure task 03/18/2025 Patient has chronic kidney disease 03/18/2025
[2025-04-02 00:32] VITALS: BP 171/85; PULSE 75; RESP 16; TEMP 36.4; O2SAT 98
[2025-04-02 00:39] LABS: Glucose, Whole Blood 321 mg/dL (60-115)
[2025-04-02 01:16] LABS: Appearance Urine Clear; Glucose Urine UA >=1000 mg/dL (Negative); PH 7.0 (5.0-9.0); Specific Gravity - Urine 1.020 (1.005-1.025); UMIC TRIGGER UACC YES
--- NOTE | 2025-04-02 01:47 | PC.NURSE ---
PT [facility] from [facility], pt presented with an unwitnessed fall, no blood thinners, ukn LOC, -headstrike, aaox3, nad , pt c/o lower back pain and has small skin tear on his right elbow,
[2025-04-02 04:30] VITALS: BP 145/60; PULSE 65; RESP 14; TEMP 36.4; O2SAT 95
[2025-04-02 05:32] VITALS: BP 145/60; PULSE 65; RESP 14; TEMP 36.4; O2SAT 95
== END 2025-04-02 05:32 | disposition home or self-care (01) ==
PROVIDERS: Emergency Provider Emergency Medicine; PCP Internal Medicine
DX: M54.50 Low back pain, unspecified (principal); Z91.81 History of falling; E11.9 Type 2 diabetes mellitus without complications; I10 Essential (primary) hypertension; E78.00 Pure hypercholesterolemia, unspecified; Z87.891 Personal history of nicotine dependence; Z79.899 Other long term (current) drug therapy
CPT/HCPCS: 70450; 72100; 72125; 81001; 82947; 93005; 99284; 99285

== ENCOUNTER → 2025-04-01 23:52 | Outpatient (BNV) | payer MEDICARE, SELFPAY | PROVIDERS: Emergency Provider Emergency Medicine; PCP Internal Medicine; Visit Provider Internal Medicine Cardiovascular Disease | DX: I44.0 Atrioventricular block, first degree (principal) | CPT/HCPCS: 93010 ==

== ENCOUNTER 2025-04-03 14:16 | Outpatient (REF) | payer MEDICARE, SELFPAY ==
[2025-04-03 14:19] LABS: MANUAL DIFF FLAG NO
[2025-04-03 14:24] LABS: Hematocrit 40.6 % (42.0-52.0); Hemoglobin 13.9 g/dl (14.0-18.0); Imm Gran Abs Auto 0.08 X10*3/uL (0.00-0.03); Imm Gran Pct Auto 1.0 % (0.0-0.4); Lymphocytes Absolute Auto 1.0 X10*3/uL (1.2-4.9); Mean Corpuscular HGB Conc 34.2 g/dl (31.0-36.0); Mean Corpuscular Hemoglobin 30.5 pg (27.0-33.0); Mean Corpuscular Volume 89.0 fL (80.0-98.0); NRBC Abs Auto 0.000 X10*3/uL (0.0-0.012); NRBC Pct Auto 0.0 /100WBC (0.0-0.2); Platelet Count 190 X10*3/uL (160-400); Red Blood Count 4.56 X10*6/uL (4.60-5.80); White Blood Count 8.1 X10*3/uL (4.8-10.8)
[2025-04-03 14:51] LABS: Alanine Aminotransferase 13 U/L (0-40); Albumin Level 3.9 g/dL (3.5-5.0); Alkaline Phosphatase 81 U/L (39-117); Anion Gap 14 (12-20); Aspartate Amino Transferase 16 U/L (5-37); Blood Urea Nitrogen 25 mg/dL (9-16); Calcium 9.2 mg/dL (8.4-10.2); Carbon Dioxide 25 mmol/L (22-29); Chloride 98 mmol/L (96-108); Estimated Glomerular Filt Rate 45; Potassium 3.7 mmol/L (3.3-5.1); Sodium 133 mmol/L (135-145); Total Protein 6.9 g/dL (6.5-8.0)
--- OUTSIDE RECORDS SUMMARY | 2025-04-03 15:48 | XMS_ITS | Clinical Summary ---
Author Organization [employer] Address [address] [facility] [address] [place] [address] Care Team Providers Care Dev Manager Name Role Phone Unavailable Primary Care [...] Gastro-esophageal reflux disease without esophag itis 04/16/2019 [facility] (current) use of oral hypoglycemic lulu gs 04/16/2019 Personal history of nicotine dependence 04/16/19 20 Pure hypercholesterolemia, unspecified 0 Encounters Date Type Department Care Team Description 03/18/2025 3:15 PM EST Office Visit [facility] [address] [place] [phone] Mariajose Nash from Last 3 Months Social [...] Description 05/06/2025 9:45 AM EST Office Visit [facility] [address] [place] [address] Kelechi Summers, DMD [address] [place] [address] Health Maintenance Due Date Last Done Comments [...] 02/07/2023 Tobacco Screening 03/18/2026 03/18/2025 DTaP/Tdap/Td Vaccines (4 - Tdap) 05/24/2031 05/24/2021, 05/24/2021, 03/05/2012, Additional history exists Pneumococcal Vaccine: 50+ Years Completed 01/01/2019, 12/27/2017, [...]
--- OUTSIDE RECORDS SUMMARY | 2025-04-03 15:48 | XMS_ITS | Encounter Summary ---
Author Organization [employer] Address [address] [facility] [address] [place] [address] Care Team Providers Care Rush Seater Name Role Phone Unavailable Primary Care Provider Unavailabl e Encounter Details Date Type Department Care Team (Late st Contact Info) Description 05/24/2023 Abstract [facility] [address] [place] [address] Kelechi Summers, DMD [address] [place] [address] Social History Tobacco Use Types Packs/Day Years [...] Description 05/06/2025 9:45 AM EST Office Visit [facility] [address] [place] [address] Kelechi Summers, DMD [address] [place] [address] documented as of this encounter Visit Diagnoses Not on filedocumented in this encounter
--- OUTSIDE RECORDS SUMMARY | 2025-04-03 15:48 | XMS_ITS | Encounter Summary ---
Author Organization [employer] Address [address] [facility] [address] [place] [address] Care Team Providers Care Sales Center Manager Name Role Phone Unavailable Primary Care Provider Unavailabl e Encounter Details Date Type Department Care Team (Late st Contact Info) Description 05/16/2023 Abstract [facility] [address] [place] [address] Kelechi Summers, DMD [address] [place] [address] Social History Tobacco Use Types Packs/Day Years [...] Office Visit [facility] [address] [place] [address] Kelechi Summers, DMD [address] [place] [address] documented as of this encounter Visit Diagnoses Not on filedocumented in this encounter
--- OUTSIDE RECORDS SUMMARY | 2025-04-03 15:48 | XMS_ITS | Encounter Summary ---
Author Organization [employer] Address [address] [facility] [address] [place] [address] Care Team Providers Care Collection Systems Worker Name Role Phone Unavailable Primary Care Provider Unavailabl e Encounter Details Date Type Department Care Team (Late st Contact Info) Description 05/16/2023 Abstract [facility] [address] [place] [address] Kelechi Summers, DMD [address] [place] [address] Social History Tobacco Use Types Packs/Day Years [...] 9:45 AM EST Office Visit [facility] [address] [place] [address] Kelechi Summers, DMD [address] [place] [address] documented as of this encounter Visit Diagnoses Not on filedocumented in this encounter
== END 2025-04-03 14:17 | disposition home or self-care (01) ==
LOC: HO.HSH3N 14:16
PROVIDERS: Visit Provider Nurse Practitioner Acute Care
DX: E11.9 Type 2 diabetes mellitus without complications (principal)
CPT/HCPCS: 36415; 80053; 85025

== ENCOUNTER 2025-04-06 05:52 | Outpatient (REF) | payer MEDICARE, SELFPAY ==
--- OUTSIDE RECORDS SUMMARY | 2025-04-06 05:56 | XMS_ITS | Encounter Summary ---
Author Organization [employer] Address [address] [facility] [address] [place] [address] Care Team Providers Care It Training Specialist Name Role Phone Unavailable Primary Care Provider Unavailabl e Encounter Details Date Type Department Care Team (Late st Contact Info) Description 05/16/2023 Abstract [facility] [address] [place] [address] Kelechi Summers, DMD [address] [place] [address] Social History Tobacco Use Types Packs/Day Years [...] Description 05/06/2025 9:45 AM EST Office Visit [facility] [address] [place] [address] Kelechi Summers, DMD [address] [place] [address] documented as of this encounter Visit Diagnoses Not on filedocumented in this encounter
--- OUTSIDE RECORDS SUMMARY | 2025-04-06 05:56 | XMS_ITS | Encounter Summary ---
Author Organization [employer] Address [address] [facility] [address] [place] [address] Care Team Providers Care Cloth Burler Name Role Phone Unavailable Primary Care Provider Unavailabl e Encounter Details Date Type Department Care Team (Late st Contact Info) Description 05/24/2023 Abstract [facility] [address] [place] [address] Kelechi Summers, DMD [address] [place] [address] Social History Tobacco Use Types Packs/Day Years [...] 9:45 AM EST Office Visit [facility] [address] [place] [address] Kelechi Summers, DMD [address] [place] [address] documented as of this encounter Visit Diagnoses Not on filedocumented in this encounter
--- OUTSIDE RECORDS SUMMARY | 2025-04-06 05:56 | XMS_ITS | Encounter Summary ---
Author Organization [employer] Address [address] [facility] [address] [place] [address] Care Team Providers Care Pulverizer Mill Operator Name Role Phone Unavailable Primary Care Provider Unavailabl e Encounter Details Date Type Department Care Team (Late st Contact Info) Description 05/16/2023 Abstract [facility] [address] [place] [address] Kelechi Summers, DMD [address] [place] [address] Social History Tobacco Use Types Packs/Day Years [...] Description 05/06/2025 9:45 AM EST Office Visit [facility] [address] [place] [address] Kelechi Summers, DMD [address] [place] [address] documented as of this encounter Visit Diagnoses Not on filedocumented in this encounter
--- OUTSIDE RECORDS SUMMARY | 2025-04-06 05:56 | XMS_ITS | Clinical Summary ---
Author Organization [employer] Address [address] [facility] [address] [place] [address] Care Team Providers Care Sliver Former Name Role Phone Unavailable Primary Care Provider [...] Gastro-esophageal reflux disease without esophag itis 04/16/2019 correction (current) use of oral hypoglycemic lulu gs 04/16/2019 Personal history of nicotine dependence 04/16/19 20 Pure hypercholesterolemia, unspecified 0 Encounters Date Type Department Care Team Description 03/18/2025 3:15 PM EST Office Visit [facility] [address] [place] [id number] Mariajose Nash from Last 3 Months Social [...] 05/06/2025 9:45 AM EST Office Visit [facility] [address] [place] [address] Kelechi Summers, DMD [address] [place] [address] Health Maintenance Due Date Last Done Comments [...]
[2025-04-06 06:36] LABS: Alanine Aminotransferase 8 U/L (0-40); Albumin Level 3.6 g/dL (3.5-5.0); Alkaline Phosphatase 72 U/L (39-117); Anion Gap 15 (12-20); Aspartate Amino Transferase 15 U/L (5-37); Blood Urea Nitrogen 25 mg/dL (9-16); Calcium 8.9 mg/dL (8.4-10.2); Carbon Dioxide 26 mmol/L (22-29); Chloride 103 mmol/L (96-108); Estimated Glomerular Filt Rate 51; Potassium 3.7 mmol/L (3.3-5.1); Sodium 140 mmol/L (135-145); Total Protein 6.3 g/dL (6.5-8.0)
[2025-04-06 06:51] LABS: Thyroid Stimulating Hormone 2.83 uIU/mL (0.32-4.0)
[2025-04-06 06:56] LABS: Microalbum/Creatinine Ratio Ur 27.4 ug/mg cr (<30)
== END 2025-04-06 05:53 | disposition home or self-care (01) ==
LOC: HO.HSH3N 05:52
PROVIDERS: Visit Provider Nurse Practitioner Acute Care
DX: E11.22 Type 2 diabetes mellitus with diabetic chronic kidney disease (principal); I12.9 Hypertensive chronic kidney disease with stage 1 through stage 4 chronic kidney disease, or unspecified chronic kidney disease; N18.9 Chronic kidney disease, unspecified; Z91.81 History of falling
CPT/HCPCS: 36415; 80053; 82043; 82570; 83036; 84443

== ENCOUNTER 2025-04-07 06:15 | Outpatient (REF) | payer MEDICARE, SELFPAY ==
--- OUTSIDE RECORDS SUMMARY | 2025-04-07 06:17 | XMS_ITS | Clinical Summary ---
Author Organization [employer] Address 75 [facility] [address] [place] [address] Care Team Providers Care Ordnance Artificer Name Role Phone Unavailable Primary Care Provider [...] Gastro-esophageal reflux disease without esophag itis 04/16/2019 skilled nursing (current) use of oral hypoglycemic lulu gs 04/16/2019 Personal history of nicotine dependence 04/16/19 20 Pure hypercholesterolemia, unspecified 0 Encounters Date Type Department Care Team Description 03/18/2025 3:15 PM EST Office Visit [facility] [address] [place] [id number] Mariajose Nash from Last 3 Months Social [...] Description 05/06/2025 9:45 AM EST Office Visit [facility] [address] [place] [address] Kelechi Summers, DMD [address] [place] [address] Health Maintenance Due Date Last Done Comments [...] Help patients manage their type 2 diabetes No Mariajose Nash Weekly blood pressure task Care Plan Weekly blood pressure task No Mariajose Nash Help patients manage their type 2 diabetes Care Plan Help patients manage their type 2 diabetes No Mariajose Nash Patient has chronic kidney disease Care Plan Patient has chronic kidney disease No Mariajose Nash Weekly blood pressure task Care Plan Weekly blood pressure task No Mariajose Nash Patient has chronic kidney disease Care Plan Patient has chronic kidney disease No Mariajose Nash Weekly blood pressure task Care Plan Weekly blood pressure task No Kevin Cabrera Weekly blood pressure task Care Plan Weekly blood pressure task No Kevin Cabrera Patient has chronic kidney disease Care Plan Patient has chronic kidney disease No Kevin Cabrera Patient has chronic kidney disease Care Plan Patient has chronic kidney disease No Kevin Cabrera Procedures Procedure Name Priority Date/Time Associated Diagnosis [...] 03/18/2025 Patient has chronic kidney disease 03/18/2025 Weekly blood pressure task 04/06/2025 Weekly blood pressure task 04/06/2025 Patient has chronic kidney disease 04/06/2025 Patient has chronic kidney disease 04/06/2025
--- OUTSIDE RECORDS SUMMARY | 2025-04-07 06:17 | XMS_ITS | Encounter Summary ---
Author Organization [employer] Address 75 [facility] [address] [place] [address] Care Team Providers Care Fit Model Name Role Phone Unavailable Primary Care Provider Unavailabl e Encounter Details Date Type Department Care Team (Late st Contact Info) Description 05/16/2023 Abstract [facility] [address] [place] [address] Kelechi Summers, DMD [address] [place] [address] Social History Tobacco Use Types Packs/Day Years [...] Description 05/06/2025 9:45 AM EST Office Visit [facility] [address] [place] [address] Kelechi Summers, DMD [address] [place] [address] documented as of this encounter Visit Diagnoses Not on filedocumented in this encounter
--- OUTSIDE RECORDS SUMMARY | 2025-04-07 06:17 | XMS_ITS | Encounter Summary ---
Author Organization [employer] Address [address] [facility] [address] [place] [address] Care Team Providers Care Brick Veneer Maker Name Role Phone Unavailable Primary Care Provider Unavailabl e Encounter Details Date Type Department Care Team (Late st Contact Info) Description 05/24/2023 Abstract [facility] [address] [place] [address] Kelechi Summers, DMD [address] [place] [address] Social History Tobacco Use Types Packs/Day Years [...] Description 05/06/2025 9:45 AM EST Office Visit [facility] [address] [place] [address] Kelechi Summers, DMD [address] [place] [address] documented as of this encounter Visit Diagnoses Not on filedocumented in this encounter
--- OUTSIDE RECORDS SUMMARY | 2025-04-07 06:17 | XMS_ITS | Encounter Summary ---
Author Organization [employer] Address 75 [facility] [address] [place] [address] Care Team Providers Care Training Officer Name Role Phone Unavailable Primary Care Provider Unavailabl e Encounter Details Date Type Department Care Team (Late st Contact Info) Description 05/16/[address] [facility] [address] [place] [address] Kelechi Summers, DMD [address] [place] [address] Social History Tobacco Use Types Packs/Day Years [...] Description 05/06/2025 9:45 AM EST Office Visit [facility] [address] [place] [address] Kelechi Summers, DMD [address] [place] [address] documented as of this encounter Visit Diagnoses Not on filedocumented in this encounter
[2025-04-07 07:39] LABS: Appearance Urine Clear; Glucose Urine UA 250 mg/dL (Negative); PH 5.5 (5.0-9.0); Specific Gravity - Urine 1.020 (1.005-1.025)
== END 2025-04-07 06:16 | disposition home or self-care (01) ==
LOC: HO.HSH3N 06:15
PROVIDERS: Internal Medicine Endocrinology, Diabetes & Metabolism; Visit Provider Nurse Practitioner Acute Care
DX: E11.9 Type 2 diabetes mellitus without complications (principal)
CPT/HCPCS: 81003